=== PATIENT | female | born 1960 | race Caucasian/White ===

== ENCOUNTER → 2016-09-21 | Outpatient (CLI) | payer OTHER ==
[~2016-09-21] MED LIST: ALPR1TAB2 PO; ASPI-266 PO; CATHETER FLUSH 10 ML SYR IV PRN; CYCL10TA9 PO; HYDR-2890 PO; LISI20TA PO; OMEP20CA12 PO; REGADENOSON 0.4 MG/5 ML SYR (LEXISCAN) IV ONE; TRAM50TA2 PO; TRAZ-144 PO
[2016-09-21 10:19] VITALS: BP 156/81
--- NOTE | 2016-09-22 09:18 | STRESS TEST ---
PROCEDURE PHYSICIAN: RICO CISNEROS DATE OF PROCEDURE: 09/21/2016 LEXISCAN MYOVIEW STRESS TEST REPORT: INDICATION: Chest pain. BASELINE HEART RATE: 85 BASELINE BLOOD PRESSURE: 144/81 BASELINE EKG: Sinus rhythm with no ischemic changes. IN SUMMARY: The patient was injected with 10.97 mCi of technetium 99 Myoview then the resting images were obtained. She was scheduled initially for an exercise stress test. She was unable to exercise beyond 3 minutes and 18 seconds on standard Ez protocol due to shortness of breath. The test was terminated and converted to Lexiscan Myoview stress test. The patient received 0.4 mg of Lexiscan followed by 29.4 mCi of technetium 99 Myoview. Throughout the test, there were no EKG changes. The resting and stress images were reviewed and compared in the short axis, horizontal long axis, and vertical long axis views. Review of the images showed breast attenuation with typical female pattern. No significant ischemia or infarction on SPECT images. SSS is 4, SDS 4, TID value 0.96. On the gated images, the left ventricle appeared to be normal size with normal contractility. Calculated ejection fraction 65%. IN CONCLUSION: 1. The patient was unable to exercise beyond 3 minutes and 15 seconds on standard Ez protocol. The test was converted to Lexiscan Myoview stress test. She tolerated Lexiscan well. 2. No ischemia or infarction on SPECT images. 3. Normal left ventricular size with normal contractility. Calculated ejection fraction 65%. Job ID: [id number] Dictated Date: 09/21/2016 18:53:07 Shoe Repairer Date: 09/22/2016 09:15:22 / [place]anto
== END ==
LOC: CARD 08:26
PROVIDERS: ATTEND Internal Medicine Cardiovascular Disease
DX: R07.9 Chest pain, unspecified (principal); R06.02 Shortness of breath; I10 Essential (primary) hypertension; E78.5 Hyperlipidemia, unspecified; R06.00 Dyspnea, unspecified
CPT/HCPCS: 78452; 93017

== ENCOUNTER → 2016-11-03 | Outpatient (CLI) | payer OTHER ==
[~2016-11-03] MED LIST changes: -CATHETER FLUSH 10 ML SYR IV PRN; -REGADENOSON 0.4 MG/5 ML SYR (LEXISCAN) IV ONE
--- OUTSIDE RECORDS SUMMARY | 2016-11-03 10:30 | XMS REPORT | Continuity of Care Document ---
Author Author Formerly [facility] Address Unknown Phone Unavailable Allergies Active Description Code Type Severity Reaction Onset Reported/Identified Relationship to Patient Clinical Status Yes No Known Drug Allergies [id number] Drug Allergy Unknown N/ A 07/08/2014 Medications Problems Date Dx Coded Attending Type Code Diagnosis Diagnosed By 10/20/2011 DYLAN SAEED APRN S 307.42 SECONDARY INSOMNIA 10/20/2011 DYLAN SAEED APRN S 724.2 lower back pain 10/20/2011 DYLAN SAEED APRN S 780.60 fever [as symptom] 10/20/2011 AYESHA SAEED APRNA S 780.79 FATIGUE 10/20/2011 AYESHA SAEED APRNA S 783.1 recent weight gain (___ lbs) [reported ] 10/20/2011 AYESHA SAEED APRNA S 789.01 abdominal pain in the right upper belly (RUQ) 10/20/2011 DYLAN SAEED APRN S 796.2 Blood Pressure Isolated Elevated 10/20/2011 AYESHA SAEED APRNA S V19.8 family history [For FHx of Dx use Dx w / F prefix] 10/20/2011 DYLAN SAEED APRN S 307.42 SECONDARY INSOMNIA 10/20/2011 AYESHA SAEED APRNA S 724.2 lower back pain 10/20/2011 AYESHA SAEED APRNA S 780.60 fever [as symptom] 10/20/2011 AYESHA SAEED APRNA S 780.79 FATIGUE 10/20/2011 HECTOR SAEED APRNNDA S 783.1 recent weight gain (___ lbs) [reported ] 10/20/2011 AYESHA SAEED APRNA S 789.01 abdominal pain in the right upper belly (RUQ) 10/20/2011 HECTOR SAEED APRNNDA S 796.2 Blood Pressure Isolated Elevated 10/20/2011 HECTOR SAEED APRNNDA S V19.8 family history [For FHx of Dx use Dx w / F prefix] 10/20/2011 MATT PICHARDO MD 307.42 SECONDARY INSOMNIA 10/20/2011 MATT PICHARDO MD 724.2 lower back pain 10/20/2011 MATT PICHARDO MD 780.60 fever [as symptom] 10/20/2011 MATT PICHARDO MD 780.79 FATIGUE 10/20/2011 MATT PICHARDO MD 783.1 recent weight gain (___ lbs) [reported] 10/20/2011 MATT PICHARDO MD 789.01 abdominal pain in the right upper belly (RUQ ) 10/20/2011 MATT PICHARDO MD 796.2 Blood Pressure Isolated Elevated 10/20/2011 MATT PICHARDO MD V19.8 family history [For FHx of Dx use Dx w/ F prefix] 10/20/2011 DYLAN SAEED APRN S 307.42 SECONDARY INSOMNIA 10/20/2011 HECTOR SAEED APRNNDA S 724.2 lower back pain 10/20/2011 HECTOR SAEED APRNNDA S 780.60 fever [as symptom] 10/20/2011 HECTOR SAEED APRNNDA S 780.79 FATIGUE 10/20/2011 HECTOR SAEED APRNNDA S 783.1 recent weight gain (___ lbs) [reported ] 10/20/2011 HECTOR SAEED APRNNDA S 789.01 abdominal pain in the right upper belly (RUQ) 10/20/2011 HECTOR SAEED APRNNDA S 796.2 Blood Pressure Isolated Elevated 10/20/2011 HECTOR SAEED APRNNDA S V19.8 family history [For FHx of Dx use Dx w / F prefix] 10/20/2011 307.42 SECONDARY INSOMNIA 10/20/2011 724.2 lower back pain 10/20/2011 780.60 fever [as symptom] 10/20/2011 780.79 FATIGUE 10/20/2011 783.1 recent weight gain (___ lbs) [reported] 10/20/2011 789.01 abdominal pain in the right upper belly (RUQ) 10/20/2011 796.2 Blood Pressure Isolated Elevated 10/20/2011 V19.8 family history [For FHx of Dx use Dx w/ F prefix] 10/20/2011 307.42 SECONDARY INSOMNIA 10/20/2011 724.2 lower back pain 10/20/2011 780.60 fever [as symptom] 10/20/2011 780.79 FATIGUE 10/20/2011 783.1 recent weight gain (___ lbs) [reported] 10/20/2011 789.01 abdominal pain in the right upper belly (RUQ) 10/20/2011 796.2 Blood Pressure Isolated Elevated 10/20/2011 V19.8 family history [For FHx of Dx use Dx w/ F prefix] 10/20/2011 307.42 SECONDARY INSOMNIA 10/20/2011 724.2 lower back pain 10/20/2011 780.60 fever [as symptom] 10/20/2011 780.79 FATIGUE 10/20/2011 783.1 recent weight gain (___ lbs) [reported] 10/20/2011 789.01 abdominal pain in the right upper belly (RUQ) 10/20/2011 796.2 Blood Pressure Isolated Elevated 10/20/2011 V19.8 family history [For FHx of Dx use Dx w/ F prefix] 10/20/2011 DYLAN SAEED APRN S 307.42 SECONDARY INSOMNIA 10/20/2011 AYESHA SAEED APRNA S 724.2 lower back pain 10/20/2011 HECTOR SAEED APRNNDA S 780.60 fever [as symptom] 10/20/2011 HECTOR SAEED APRNNDA S 780.79 FATIGUE 10/20/2011 HECTOR SAEED APRNNDA S 783.1 recent weight gain (___ lbs) [reported ] 10/20/2011 HECTOR SAEED APRNNDA S 789.01 abdominal pain in the right upper belly (RUQ) 10/20/2011 HECTOR SAEED APRNNDA S 796.2 Blood Pressure Isolated Elevated 10/20/2011 HECTOR SAEED APRNNDA S V19.8 family history [For FHx of Dx use Dx w / F prefix] 10/20/2011 CHRISTOPHE NIGHT MANAGER, DYLAN S 307.42 SECONDARY INSOMNIA 10/20/2011 CHRISTOPHE RILEY, DYLAN S 724.2 lower back pain 10/20/2011 CHRISTOPHE RILEY, DYLAN S 780.60 fever [as symptom] 10/20/2011 CHRISTOPHE NIGHT MANAGER, DYLAN S 780.79 FATIGUE 10/20/2011 CHRISTOPHE RILEY DYLAN S 783.1 recent weight gain (___ lbs) [reported ] 10/20/2011 CHRISTOPHE RILEY, DYLAN S 789.01 abdominal pain in the right upper belly (RUQ) 10/20/2011 CHRISTOPHE RILEY DYLAN S 796.2 Blood Pressure Isolated Elevated 10/20/2011 CHRISTOPHE RILEY, DYLAN S V19.8 family history [For FHx of Dx use Dx w / F prefix] 10/20/2011 CHRISTOPHE RILEY DYLAN S 307.42 SECONDARY INSOMNIA 10/20/2011 CHRISTOPHE RILEY, DYLAN S 724.2 lower back pain 10/20/2011 CHRISTOPHE RILEY, DYLAN S 780.60 fever [as symptom] 10/20/2011 CHRISTOPHE RILEY DYLAN S 780.79 FATIGUE 10/20/2011 CHRISTOPHE RILEY, DYLAN S 783.1 recent weight gain (___ lbs) [reported ] 10/20/2011 CHRISTOPHE RILEY, DYLAN S 789.01 abdominal pain in the right upper belly (RUQ) 10/20/2011 CHRISTOPHE RILEY, DYLAN S 796.2 Blood Pressure Isolated Elevated 10/20/2011 CHRISTOPHE NIGHT MANAGER, DYLAN S V19.8 family history [For FHx of Dx use Dx w / F prefix] 10/20/2011 CHRISTOPHE RILEY, DYLAN S 307.42 SECONDARY INSOMNIA 10/20/2011 CHRISTOPHE NIGHT MANAGER, DYLAN S 724.2 lower back pain 10/20/2011 CHRISTOPHE NIGHT MANAGER, DYLAN S 780.60 fever [as symptom] 10/20/2011 CHRISTOPHE RILEY DYLAN S 780.79 FATIGUE 10/20/2011 AYESHA SAEED APRNA S 783.1 recent weight gain (___ lbs) [reported ] 10/20/2011 DYLAN SAEED APRN S 789.01 abdominal pain in the right upper belly (RUQ) 10/20/2011 AYESHA SAEED APRNA S 796.2 Blood Pressure Isolated Elevated 10/20/2011 AYESHA SAEED APRNA S V19.8 family history [For FHx of Dx use Dx w / F prefix] 10/20/2011 AYESHA SAEED APRNA S 307.42 SECONDARY INSOMNIA 10/20/2011 AYESHA SAEED APRNA S 724.2 LOWER BACK PAIN 10/20/2011 AYESHA SAEED APRNA S 780.60 FEVER [ SYMPTOM] 10/20/2011 AYESHA SAEED APRNA S 780.79 FATIGUE 10/20/2011 AYESHA SAEED APRNA S 783.1 RECENT WEIGHT GAIN (___ LBS) [REPORTED ] 10/20/2011 DYLAN SAEED APRN S 789.01 ABDOMINAL PAIN IN THE RIGHT UPPER BELLY (RUQ) 10/20/2011 AYESHA SAEED APRNA S 796.2 BLOOD PRESSURE ISOLATED ELEVATED 10/20/2011 AYESHA SAEED APRNA S V19.8 family history [For FHx of Dx use Dx w / F prefix] 10/20/2011 JOHANN AGUERO APRN A 307.42 SECONDARY INSOMNIA 10/20/2011 JOHANN AGUERO APRN A 724.2 LOWER BACK PAIN 10/20/2011 JOHANN AGUERO APRN A 780.60 FEVER [ SYMPTOM] 10/20/2011 ROBERTO AGUERO APRNIDI A 780.79 FATIGUE 10/20/2011 ROBERTO AGUERO APRNIDI A 783.1 RECENT WEIGHT GAIN (___ LBS) [REPORTED] 10/20/2011 JOHANN AGUERO APRN A 789.01 ABDOMINAL PAIN IN THE RIGHT UPPER BELLY ( RUQ) 10/20/2011 JOHANN AGUERO APRN A 796.2 BLOOD PRESSURE ISOLATED ELEVATED 10/20/2011 JOHANN AGUERO APRN A V19.8 family history [For FHx of Dx use Dx w/ F prefix] 10/20/2011 ROBERTO AGUERO APRNIDI A 307.42 SECONDARY INSOMNIA 10/20/2011 ROBERTO AGUERO APRNIDI A 724.2 LOWER BACK PAIN 10/20/2011 ROBERTO AGUERO APRNIDI A 780.60 FEVER [ SYMPTOM] 10/20/2011 ROBERTO AGUERO APRNIDI A 780.79 FATIGUE 10/20/2011 JOHANN AGUERO APRN A 783.1 RECENT WEIGHT GAIN (___ LBS) [REPORTED] 10/20/2011 JOHANN AGUERO APRN A 789.01 ABDOMINAL PAIN IN THE RIGHT UPPER BELLY ( RUQ) 10/20/2011 JOHANN AGUERO APRN A 796.2 BLOOD PRESSURE ISOLATED ELEVATED 10/20/2011 JOHANN AGUERO APRN A V19.8 family history [For FHx of Dx use Dx w/ F prefix] 10/20/2011 HECTOR SAEED APRNNDA S 307.42 SECONDARY INSOMNIA 10/20/2011 HECTOR SAEED APRNNDA S 724.2 LOWER BACK PAIN 10/20/2011 HECTOR SAEED APRNNDA S 780.60 FEVER [ SYMPTOM] 10/20/2011 HECTOR SAEED APRNNDA S 780.79 FATIGUE 10/20/2011 HECTOR SAEED APRNNDA S 783.1 RECENT WEIGHT GAIN (___ LBS) [REPORTED ] 10/20/2011 HECTOR SAEED APRNNDA S 789.01 ABDOMINAL PAIN IN THE RIGHT UPPER BELLY (RUQ) 10/20/2011 HECTOR SAEED APRNNDA S 796.2 BLOOD PRESSURE ISOLATED ELEVATED 10/20/2011 HECTOR SAEED APRNNDA S V19.8 family history [For FHx of Dx use Dx w / F prefix] 10/20/2011 CHRISTOPHE RILEY DYLAN S 307.42 SECONDARY INSOMNIA 10/20/2011 CHRISTOPHE RILEY DYALN S 724.2 LOWER BACK PAIN 10/20/2011 HECTOR SAEED APRNNDA S 780.60 FEVER [ SYMPTOM] 10/20/2011 HECTOR SAEED APRNNDA S 780.79 FATIGUE 10/20/2011 CHRISTOPHE RILEY, DYLAN S 783.1 RECENT WEIGHT GAIN (___ LBS) [REPORTED ] 10/20/2011 HECTOR SAEED APRNNDA S 789.01 ABDOMINAL PAIN IN THE RIGHT UPPER BELLY (RUQ) 10/20/2011 HECTOR SAEDE APRNNDA S 796.2 BLOOD PRESSURE ISOLATED ELEVATED 10/20/2011 HECTOR SAEED APRNNDA S V19.8 family history [For FHx of Dx use Dx w / F prefix] 10/27/2011 CHRISTOPHE RILEY DYLAN S 710.0 SYSTEMIC LUPUS ERYTHEMATOSUS 10/27/2011 CHRISTOPHE RILEY DYALN S 710.0 SYSTEMIC LUPUS ERYTHEMATOSUS 10/27/2011 MATT PICHARDO MD 710.0 SYSTEMIC LUPUS ERYTHEMATOSUS 10/27/2011 CHRISTOPHE RILEY, DYLAN S 710.0 SYSTEMIC LUPUS ERYTHEMATOSUS 10/27/2011 710.0 SYSTEMIC LUPUS ERYTHEMATOSUS 10/27/2011 710.0 SYSTEMIC LUPUS ERYTHEMATOSUS 10/27/2011 710.0 SYSTEMIC LUPUS ERYTHEMATOSUS 10/27/2011 CHRISTOPHE RILEY, DYLAN S 710.0 SYSTEMIC LUPUS ERYTHEMATOSUS 10/27/2011 CHRISTOPHE RILEY, DYLAN S 710.0 SYSTEMIC LUPUS ERYTHEMATOSUS 10/27/2011 CHRISTOPHE RILEY, DYLAN S 710.0 SYSTEMIC LUPUS ERYTHEMATOSUS 10/27/2011 CHRISTOPHE RILEY, DYLAN S 710.0 SYSTEMIC LUPUS ERYTHEMATOSUS 10/27/2011 CHRISTOPHE RILEY DYLAN S 710.0 SYSTEMIC LUPUS ERYTHEMATOSUS 10/27/2011 MORE NIGHT MANAGER, JOHANN A 710.0 SYSTEMIC LUPUS ERYTHEMATOSUS 10/27/2011 MORE NIGHT MANAGER, JOHANN A 710.0 SYSTEMIC LUPUS ERYTHEMATOSUS 10/27/2011 CHRISTOPHE NIGHT MANAGER, DYLAN S 710.0 SYSTEMIC LUPUS ERYTHEMATOSUS 10/27/2011 CHRISTOPHE RLIEY, DYLAN S 710.0 SYSTEMIC LUPUS ERYTHEMATOSUS 11/03/2011 CHRISTOPHE RILEY DYLAN S 401.1 BENIGN ESSENTIAL HYPERTENSION 11/03/2011 HECTOR SAEED APRNNDA S 401.1 BENIGN ESSENTIAL HYPERTENSION 11/03/2011 MATT PICHARDO MD 401.1 BENIGN ESSENTIAL HYPERTENSION 11/03/2011 CHRISTOPHE NIGHT MANAGER, DYLAN S 401.1 BENIGN ESSENTIAL HYPERTENSION 11/03/2011 401.1 BENIGN ESSENTIAL HYPERTENSION 11/03/2011 401.1 BENIGN ESSENTIAL HYPERTENSION 11/03/2011 401.1 BENIGN ESSENTIAL HYPERTENSION 11/03/2011 CHRISTOPHE NIGHT MANAGER, DLYAN S 401.1 BENIGN ESSENTIAL HYPERTENSION 11/03/2011 CHRISTOPHE NIGHT MANAGER, DYLAN S 401.1 BENIGN ESSENTIAL HYPERTENSION 11/03/2011 CHRISTOPHE NIGHT MANAGER, DYLAN S 401.1 BENIGN ESSENTIAL HYPERTENSION 11/03/2011 CHRISTOPHE NIGHT MANAGER, DYLAN S 401.1 BENIGN ESSENTIAL HYPERTENSION 11/03/2011 CHRISTOPHE NIGHT MANAGER, DYLAN S 401.1 BENIGN ESSENTIAL HYPERTENSION 11/03/2011 MORE NIGHT MANAGER, JOHANN A 401.1 BENIGN ESSENTIAL HYPERTENSION 11/03/2011 MORE NIGHT MANAGER, JOHANN A 401.1 BENIGN ESSENTIAL HYPERTENSION 11/03/2011 CHRISTOPHE NIGHT MANAGER, DYLAN S 401.1 BENIGN ESSENTIAL HYPERTENSION 11/03/2011 CHRISTOPHE NIGHT MANAGER, DYLAN S 401.1 BENIGN ESSENTIAL HYPERTENSION 03/27/2012 CHRISTOPHE RILEY, DYLAN S 535.00 ACUTE GASTRITIS (WITHOUT HEMORRHAGE) 03/27/2012 HECTOR SAEED APRNNDA S 695.4 LUPUS ERYTHEMATOSUS 03/27/2012 CHRISTOPHE RILEY DYLAN S 535.00 ACUTE GASTRITIS (WITHOUT HEMORRHAGE) 03/27/2012 HECTOR SAEED APRNNDA S 695.4 LUPUS ERYTHEMATOSUS 03/27/2012 MATT PICHARDO MD 535.00 ACUTE GASTRITIS (WITHOUT HEMORRHAGE) 03/27/2012 MATT PICHARDO MD 695.4 LUPUS ERYTHEMATOSUS 03/27/2012 CHRISTOPHE RILEY DYLAN S 535.00 ACUTE GASTRITIS (WITHOUT HEMORRHAGE) 03/27/2012 CHRISTOPHE RILEY, DYLAN S 695.4 LUPUS ERYTHEMATOSUS 03/27/2012 535.00 ACUTE GASTRITIS (WITHOUT HEMORRHAGE) 03/27/2012 695.4 LUPUS ERYTHEMATOSUS 03/27/2012 535.00 ACUTE GASTRITIS (WITHOUT HEMORRHAGE) 03/27/2012 695.4 LUPUS ERYTHEMATOSUS 03/27/2012 535.00 ACUTE GASTRITIS (WITHOUT HEMORRHAGE) 03/27/2012 695.4 LUPUS ERYTHEMATOSUS 03/27/2012 HECTOR SAEED APRNNDA S 535.00 ACUTE GASTRITIS (WITHOUT HEMORRHAGE) 03/27/2012 CHRISTOPHE NIGHT MANAGER, DYLAN S 695.4 LUPUS ERYTHEMATOSUS 03/27/2012 CHRISTOPHE NIGHT MANAGER, DYLAN S 535.00 ACUTE GASTRITIS (WITHOUT HEMORRHAGE) 03/27/2012 CHRISTOPHE NIGHT MANAGER, DYLAN S 695.4 LUPUS ERYTHEMATOSUS 03/27/2012 CHRISTOPHE NIGHT MANAGER, DYLAN S 535.00 ACUTE GASTRITIS (WITHOUT HEMORRHAGE) 03/27/2012 CHRISTOPHE NIGHT MANAGER, DYLAN S 695.4 LUPUS ERYTHEMATOSUS 03/27/2012 CHRISTOPHE NIGHT MANAGER, DYLAN S 535.00 ACUTE GASTRITIS (WITHOUT HEMORRHAGE) 03/27/2012 CHRISTOPHE NIGHT MANAGER, DYLAN S 695.4 LUPUS ERYTHEMATOSUS 03/27/2012 CHRISTOPHE NIGHT MANAGER, DYLAN S 535.00 ACUTE GASTRITIS (WITHOUT HEMORRHAGE) 03/27/2012 CHRISTOPHE NIGHT MANAGER, DYLAN S 695.4 LUPUS ERYTHEMATOSUS 03/27/2012 MORE NIGHT MANAGER, JOHANN A 535.00 ACUTE GASTRITIS (WITHOUT HEMORRHAGE) 03/27/2012 MORE NIGHT MANAGER, JOHANN A 695.4 LUPUS ERYTHEMATOSUS 03/27/2012 MORE NIGHT MANAGER, JOHANN A 535.00 ACUTE GASTRITIS (WITHOUT HEMORRHAGE) 03/27/2012 MORE NIGHT MANAGER, JOHANN A 695.4 LUPUS ERYTHEMATOSUS 03/27/2012 CHRISTOPHE NIGHT MANAGER, DYLAN S 535.00 ACUTE GASTRITIS (WITHOUT HEMORRHAGE) 03/27/2012 CHRISTOPHE NIGHT MANAGER, DYLAN S 695.4 LUPUS ERYTHEMATOSUS 03/27/2012 CHRISTOPHE NIGHT MANAGER, DYLAN S 535.00 ACUTE GASTRITIS (WITHOUT HEMORRHAGE) 03/27/2012 CHRISTOPHE NIGHT MANAGER, DYLAN S 695.4 LUPUS ERYTHEMATOSUS 06/20/2012 CHRISTOPHE NIGHT MANAGER, DYLAN S 338.29 CHRONIC PAIN 06/20/2012 CHRISTOPHE YENN, DYLAN S 786.09 DYSPNEA 06/20/2012 CHRISTOPHE NIGHT MANAGER DYLAN S V04.81 FLU DX (3 YRS AND ABOVE, IM) 06/20/2012 CHRISTOPHE NIGHT MANAGER, DYLAN S 338.29 CHRONIC PAIN 06/20/2012 CHRISTOPHE YENN DYLAN S 786.09 DYSPNEA 06/20/2012 CHRISTOPHE NIGHT MANAGER, DYLAN S V04.81 FLU DX (3 YRS AND ABOVE, IM) 06/20/2012 MATT PICHARDO MD 338.29 CHRONIC PAIN 06/20/2012 MATT PICHARDO MD 786.09 DYSPNEA 06/20/2012 MATT PICHARDO MD V04.81 FLU DX (3 YRS AND ABOVE, IM) 06/20/2012 CHRISTOPHE RILEY DYLAN S 338.29 CHRONIC PAIN 06/20/2012 HECTOR SAEED APRNNDA S 786.09 DYSPNEA 06/20/2012 HECTOR SAEED APRNNDA S V04.81 FLU DX (3 YRS AND ABOVE, IM) 06/20/2012 338.29 CHRONIC PAIN 06/20/2012 786.09 DYSPNEA 06/20/2012 V04.81 FLU DX (3 YRS AND ABOVE, IM) 06/20/2012 338.29 CHRONIC PAIN 06/20/2012 786.09 DYSPNEA 06/20/2012 V04.81 FLU DX (3 YRS AND ABOVE, IM) 06/20/2012 338.29 CHRONIC PAIN 06/20/2012 786.09 DYSPNEA 06/20/2012 V04.81 FLU DX (3 YRS AND ABOVE, IM) 06/20/2012 CHRISTOPHE RILEY DYLAN S 338.29 CHRONIC PAIN 06/20/2012 CHRISTOPHE RILEY DYLAN S 786.09 DYSPNEA 06/20/2012 HECTOR SAEED APRNNDA S V04.81 FLU DX (3 YRS AND ABOVE, IM) 06/20/2012 CHRISTOPHE RILEY DYLAN S 338.29 CHRONIC PAIN 06/20/2012 CHRISTOPHE RILEY DYLAN S 786.09 DYSPNEA 06/20/2012 CHRISTOPHE RILEY DYLAN S V04.81 FLU DX (3 YRS AND ABOVE, IM) 06/20/2012 CHRISTOPHE RILEY DYLAN S 338.29 CHRONIC PAIN 06/20/2012 CHRISTOPHE RILEY DYLAN S 786.09 DYSPNEA 06/20/2012 HECTOR SAEED APRNNDA S V04.81 FLU DX (3 YRS AND ABOVE, IM) 06/20/2012 CHRISTOPHE RILEY DYLAN S 338.29 CHRONIC PAIN 06/20/2012 CHRISTOPHE RILEY DYLAN S 786.09 DYSPNEA 06/20/2012 AYESHA SAEED APRNA S V04.81 FLU DX (3 YRS AND ABOVE, IM) 06/20/2012 HECTOR SAEED APRNNDA S 338.29 CHRONIC PAIN 06/20/2012 HECTOR SAEED APRNNDA S 786.09 DYSPNEA 06/20/2012 AYESHA SAEED APRNA S V04.81 FLU DX (3 YRS AND ABOVE, IM) 06/20/2012 ROBERTO AGUERO APRNIDI A 338.29 CHRONIC PAIN 06/20/2012 MORE RILEY, JOHANN A 786.09 DYSPNEA 06/20/2012 ROBERTO AGUERO APRNIDI A V04.81 FLU DX (3 YRS AND ABOVE, IM) 06/20/2012 MORE RILEY JOHANN A 338.29 CHRONIC PAIN 06/20/2012 MORE RILEY, JOHANN A 786.09 DYSPNEA 06/20/2012 ROBERTO AGUERO APRNIDI A V04.81 FLU DX (3 YRS AND ABOVE, IM) 06/20/2012 HECTOR SAEED APRNNDA S 338.29 CHRONIC PAIN 06/20/2012 HECTOR SAEED APRNNDA S 786.09 DYSPNEA 06/20/2012 AYESHA SAEED APRNA S V04.81 FLU DX (3 YRS AND ABOVE, IM) 06/20/2012 HECTOR SAEED APRNNDA S 338.29 CHRONIC PAIN 06/20/2012 HECTOR SAEED APRNNDA S 786.09 DYSPNEA 06/20/2012 AYESHA SAEED APRNA S V04.81 FLU DX (3 YRS AND ABOVE, IM) 10/17/2012 MATT PICHARDO MD 782.1 skin: a rash [as Sx] 10/17/2012 CHRISTOPHE RILEY DYLAN S 782.1 skin: a rash [as Sx] 10/17/2012 782.1 skin: a rash [as Sx] 10/17/2012 782.1 skin: a rash [as Sx] 10/17/2012 782.1 skin: a rash [as Sx] 10/17/2012 DYLAN SAEED APRN S 782.1 skin: a rash [as Sx] 10/17/2012 AYESHA SAEED APRNA S 782.1 skin: a rash [as Sx] 10/17/2012 HECTOR SAEED APRNNDA S 782.1 skin: a rash [as Sx] 10/17/2012 CHRISTOPHE RILEY DYLAN S 782.1 skin: a rash [as Sx] 10/17/2012 HECTOR SAEED APRNNDA S 782.1 skin: a rash [as Sx] 10/17/2012 MORE RILEY JOHANN A 782.1 skin: a rash [as Sx ] 10/17/2012 MORE APRN, JOHANN A 782.1 skin: a rash [as Sx ] 10/17/2012 AYESHA SAEED APRNA S 782.1 skin: a rash [as Sx] 10/17/2012 AYESHA SAEED APRNA S 782.1 SKIN: A RASH [ SX] 02/13/2013 790.99 abnormal lab 02/13/2013 790.99 abnormal lab 02/13/2013 CHRISTOPHE RILEY, DYLAN S 790.99 abnormal lab 02/13/2013 CHRISTOPHE RILEY, DYLAN S 790.99 abnormal lab 02/13/2013 CHRISTOPHE RILEY, DYLAN S 790.99 abnormal lab 02/13/2013 CHRISTOPHE RILEY, DYLAN S 790.99 abnormal lab 02/13/2013 CHRISTOPHE RILEY, DYLAN S 790.99 abnormal lab 02/13/2013 MORE NIGHT MANAGER, JOHANN A 790.99 abnormal lab 02/13/2013 MORE NIGHT MANAGER, OJHANN A 790.99 abnormal lab 02/13/2013 CHRISTOPHE NIGHT MANAGER, DYLAN S 790.99 abnormal lab 02/13/2013 CHRISTOPHE RILEY, DYLAN S 790.99 ABNORMAL LAB 07/11/2013 CHRISTOPHE RILEY DYLAN S 788.1 DYSURIA 07/11/2013 AYESHA SAEED APRNA S V58.69 HIGH RISK MEDICATION 07/11/2013 HECTOR SAEED APRNNDA S 788.1 DYSURIA 07/11/2013 CHRISTOPHE NIGHT MANAGER, DYLAN S V58.69 HIGH RISK MEDICATION 07/11/2013 CHRISTOPHE NIGHT MANAGER, DYLAN S 788.1 DYSURIA 07/11/2013 CHRISTOPHE NIGHT MANAGER, DYLAN S V58.69 HIGH RISK MEDICATION 07/11/2013 MORE NIGHT MANAGER, JOHANN A 788.1 DYSURIA 07/11/2013 MORE NIGHT MANAGER, JOHANN A V58.69 HIGH RISK MEDICATION 07/11/2013 MORE NIGHT MANAGER, JOHANN A 788.1 DYSURIA 07/11/2013 MORE NIGHT MANAGER, JOHANN A V58.69 HIGH RISK MEDICATION 07/11/2013 CHRISTOPHE NIGHT MANAGER, DYLAN S 788.1 DYSURIA 07/11/2013 CHRISTOPHE NIGHT MANAGER, DYLAN S V58.69 HIGH RISK MEDICATION 07/11/2013 CHRISTOPHE NIGHT MANAGER, DYLAN S 788.1 DYSURIA 07/11/2013 CHRISTOPHE YENN, DYLAN S V58.69 HIGH RISK MEDICATION 07/18/2013 CHRISTOPHE YENN, DYLAN S 380.10 OTITIS EXTERNA RIGHT 07/18/2013 CHRISTOPHE YENN, DYLAN S 380.10 OTITIS EXTERNA RIGHT 07/18/2013 CHRISTOPHE YENN, DYLAN S 380.10 OTITIS EXTERNA RIGHT 07/18/2013 MORE NIGHT MANAGER, JOHANN A 380.10 OTITIS EXTERNA RIGHT 07/18/2013 MORE NIGHT MANAGER, JOHANN A 380.10 OTITIS EXTERNA RIGHT 07/18/2013 CHRISTOPHE RILEY, DYLAN S 380.10 OTITIS EXTERNA RIGHT 07/18/2013 CHRISTOPHE YENN DYLAN S 380.10 OTITIS EXTERNA RIGHT 10/29/2013 CHRISTOPHE YENN, DYLAN S V15.82 Nicotine abuse 10/29/2013 CHRISTOPHE YENN DYLAN S V15.82 Nicotine abuse 10/29/2013 MORE NIGHT MANAGER, JOHANN A V15.82 Nicotine abuse 10/29/2013 MORE NIGHT MANAGER, JOHANN A V15.82 Nicotine abuse 10/29/2013 CHRISTOPHE YENN DYLAN S V15.82 Nicotine abuse 10/29/2013 CHRISTOPHE YENN DYLAN S V15.82 Nicotine abuse 03/19/2014 CHRISTOPHE RILEY DYLAN S 599.0 URINARY TRACT INFECTION 03/19/2014 MORE RILEY JOHANN A 599.0 URINARY TRACT INFECTION 03/19/2014 MORE RILEY JOHANN A 599.0 URINARY TRACT INFECTION 03/19/2014 HECTOR SAEED APRNNDA S 599.0 URINARY TRACT INFECTION 03/19/2014 CHRISTOPHE RILEY DYLAN S 599.0 URINARY TRACT INFECTION 04/15/2014 MORE RILEY JOHANN A V65.42 COUNSELING - SMOKING CESSATION 04/15/2014 MORE RILEY JOHANN A V72.31 COSMETIC CONSULTANT EXAM, ROUTINE 04/15/2014 MORE RILEY JOHANN A V73.81 HPV SCREENING 04/15/2014 MORE RILEY JOHANN A V76.10 BREAST CANCER SCREENING 04/15/2014 MORE RILEY JOHANN A V76.2 CERVICAL CANCER SCREENING (PAP SMEAR) 04/15/2014 MORE RILEY JOHANN A V76.51 COLON CANCER SCREENING 04/15/2014 MORE RILEY JOHANN A V65.42 COUNSELING - SMOKING CESSATION 04/15/2014 MORE RILEY JOHANN A V72.31 COSMETIC CONSULTANT EXAM, ROUTINE 04/15/2014 MORE RILEY JOHANN A V73.81 HPV SCREENING 04/15/2014 MORE YENMarielle JOHANN A V76.10 BREAST CANCER SCREENING 04/15/2014 MORE YENMarielle JOHANN A V76.2 CERVICAL CANCER SCREENING (PAP SMEAR) 04/15/2014 MORE YENMarielle JOHANN A V76.51 COLON CANCER SCREENING 04/15/2014 HECTOR SAEED APRNNDA S V65.42 COUNSELING - SMOKING CESSATION 04/15/2014 HECTOR SAEED APRNNDA S V72.31 COSMETIC CONSULTANT EXAM, ROUTINE 04/15/2014 HECTOR SAEED APRNNDA S V73.81 HPV SCREENING 04/15/2014 HECTOR SAEED APRNNDA S V76.10 BREAST CANCER SCREENING 04/15/2014 HECTOR SAEED APRNNDA S V76.2 CERVICAL CANCER SCREENING (PAP SMEAR) 04/15/2014 HECTOR SAEED APRNNDA S V76.51 COLON CANCER SCREENING 04/15/2014 DYLAN SAEED APRN V65.42 COUNSELING - SMOKING CESSATION 04/15/2014 DYLAN SAEED APRN V72.31 COSMETIC CONSULTANT EXAM, ROUTINE 04/15/2014 DYLAN SAEED APRN V73.81 HPV SCREENING 04/15/2014 DYLAN SAEED APRN V76.10 BREAST CANCER SCREENING 04/15/2014 DYLAN SAEED APRN V76.2 CERVICAL CANCER SCREENING (PAP SMEAR) 04/15/2014 DYLAN SAEED APRN V76.51 COLON CANCER SCREENING 06/16/2014 DYLAN SAEED APRN 719.45 PAIN- HIP 06/16/2014 DYLAN SAEED APRN 719.45 PAIN- HIP 07/08/2014 RICARDO NAM DO Ot 211.4 BENIGN NEOPL RECTUM/ANUS 07/08/2014 RICARDO NAM DO Ot 401.9 HYPERTENSION NOS 07/08/2014 RICARDO NAM DO Ot 562.10 DIVERTICULOSIS COLON (W/O MENT OF HEMORR 08/25/2014 Ot 789.01 08/25/2014 Ot 593.2 08/25/2014 Ot 616.0 08/25/2014 Ot 620.2 08/25/2014 RICARDO NAM DO Ot V72.84 11/03/2014 DYLAN SAEED APRN S 338.29 PAIN - CHRONIC 11/03/2014 DYLAN SAEED APRN 525.9 UNSPECIFIED DISORDER OF THE TEETH AND SUPPORTING STRUCTURES 09/02/2015 Ot 789.01 09/02/2015 Ot 593.2 09/02/2015 Ot 616.0 09/02/2015 Ot 620.2 09/02/2015 RICARDO NAM DO Ot V72.84 09/25/2015 DYLAN SAEED Ot M54.30 SCIATICA, UNSPECIFIED SIDE 06/07/2016 Ot 789.01 ABDOMINAL PAIN, RIGHT UPPER QUADRANT 06/07/2016 Ot 593.2 CYST OF KIDNEY, ACQUIRED 06/07/2016 Ot 616.0 CERVICITIS 06/07/2016 Ot 620.2 OVARIAN CYST NEC/NOS 06/07/2016 RICARDO NAM DO Ot V72.84 EXAM PRE-OPERATIVE NOS 07/26/2016 Ot 789.01 ABDOMINAL PAIN, RIGHT UPPER QUADRANT 07/26/2016 Ot 593.2 CYST OF KIDNEY, ACQUIRED 07/26/2016 Ot 616.0 CERVICITIS 07/26/2016 Ot 620.2 OVARIAN CYST NEC/NOS 07/26/2016 RICARDO NAM DO Ot V72.84 EXAM PRE-OPERATIVE NOS 07/28/2016 RICO CISNEROS MD Ot E78.5 HYPERLIPIDEMIA, UNSPECIFIED 07/28/2016 RICO CISNEROS MD Ot I10 ESSENTIAL (PRIMARY) HYPERTENSION 07/28/2016 RICO CISNEROS MD Ot R06.02 SHORTNESS OF BREATH 07/28/2016 RICO CISNEROS MD Ot R07.9 CHEST PAIN, UNSPECIFIED 2016 Ot 789.01 ABDOMINAL PAIN, RIGHT UPPER QUADRANT 2016 Ot 593.2 CYST OF KIDNEY, ACQUIRED 2016 Ot 616.0 CERVICITIS 2016 Ot 620.2 OVARIAN CYST NEC/NOS 2016 RICARDO NAM DO Ot V72.84 EXAM PRE-OPERATIVE NOS 2016 RICO CISNEROS MD Ot E78.5 HYPERLIPIDEMIA, UNSPECIFIED 2016 RICO CISNEROS MD Ot I10 ESSENTIAL (PRIMARY) HYPERTENSION 2016 RICO CISNEROS MD Ot R06.02 SHORTNESS OF BREATH 2016 RICO CISNEROS MD Ot R07.9 CHEST PAIN, UNSPECIFIED 2016 RICO CISNEROS MD Ot E78.5 HYPERLIPIDEMIA, UNSPECIFIED 2016 RICO CISNEROS MD Ot I10 ESSENTIAL (PRIMARY) HYPERTENSION 2016 RICO CISNEROS MD Ot R06.02 SHORTNESS OF BREATH 2016 RICO CISNEROS MD Ot R07.9 CHEST PAIN, UNSPECIFIED 08/16/2016 Ot 789.01 ABDOMINAL PAIN, RIGHT UPPER QUADRANT 08/16/2016 Ot 593.2 CYST OF KIDNEY, ACQUIRED 08/16/2016 Ot 616.0 CERVICITIS 08/16/2016 Ot 620.2 OVARIAN CYST NEC/NOS 08/16/2016 RICARDO NAM DO Ot V72.84 EXAM PRE-OPERATIVE NOS 08/16/2016 RICO CISNEROS MD Ot E78.5 HYPERLIPIDEMIA, UNSPECIFIED 08/16/2016 RICO CISNREOS MD Ot I10 ESSENTIAL (PRIMARY) HYPERTENSION 08/16/2016 RICO CISNEROS MD Ot R06.02 SHORTNESS OF BREATH 08/16/2016 RICO CISNEROS MD Ot R07.9 CHEST PAIN, UNSPECIFIED 08/16/2016 Ot 789.01 ABDOMINAL PAIN, RIGHT UPPER QUADRANT 08/16/2016 Ot 593.2 CYST OF KIDNEY, ACQUIRED 08/16/2016 Ot 616.0 CERVICITIS 08/16/2016 Ot 620.2 OVARIAN CYST NEC/NOS 08/16/2016 RICARDO NAM DO Ot V72.84 EXAM PRE-OPERATIVE NOS 08/16/2016 RICO CISNEROS MD Ot E78.5 HYPERLIPIDEMIA, UNSPECIFIED 08/16/2016 RICO CISNEROS MD Ot I10 ESSENTIAL (PRIMARY) HYPERTENSION 08/16/2016 RICO CISNEROS MD Ot R06.02 SHORTNESS OF BREATH 08/16/2016 RICO CISNEROS MD Ot R07.9 CHEST PAIN, UNSPECIFIED 09/19/2016 Ot 789.01 ABDOMINAL PAIN, RIGHT UPPER QUADRANT 09/19/2016 Ot 593.2 CYST OF KIDNEY, ACQUIRED 09/19/2016 Ot 616.0 CERVICITIS 09/19/2016 Ot 620.2 OVARIAN CYST NEC/NOS 09/19/2016 RICARDO NAM DO Ot V72.84 EXAM PRE-OPERATIVE NOS 09/19/2016 RICO CISNEROS MD Ot E78.5 HYPERLIPIDEMIA, UNSPECIFIED 09/19/2016 RICO CISNEROS MD Ot I10 ESSENTIAL (PRIMARY) HYPERTENSION 09/19/2016 RICO CISNEROS MD Ot R06.02 SHORTNESS OF BREATH 09/19/2016 RICO CISNEROS MD Ot R07.9 CHEST PAIN, UNSPECIFIED 09/20/2016 Ot 789.01 ABDOMINAL PAIN, RIGHT UPPER QUADRANT 09/20/2016 Ot 593.2 CYST OF KIDNEY, ACQUIRED 09/20/2016 Ot 616.0 CERVICITIS 09/20/2016 Ot 620.2 OVARIAN CYST NEC/NOS 09/20/2016 RICARDO NAM DO Ot V72.84 EXAM PRE-OPERATIVE NOS 09/20/2016 BLAYNE RAMESH, RICO Ellis Ot E78.5 HYPERLIPIDEMIA, UNSPECIFIED 09/20/2016 RICO CISNEROS MD Ot I10 ESSENTIAL (PRIMARY) HYPERTENSION 09/20/2016 RICO CISNEROS MD Ot R06.02 SHORTNESS OF BREATH 09/20/2016 RICO CISNEROS MD Ot R07.9 CHEST PAIN, UNSPECIFIED 09/21/2016 RICO CISNEROS MD Ot E78.5 HYPERLIPIDEMIA, UNSPECIFIED 09/21/2016 RICO CISNEROS MD Ot I10 ESSENTIAL (PRIMARY) HYPERTENSION 09/21/2016 RICO CISNEROS MD Ot R06.00 DYSPNEA, UNSPECIFIED 09/21/2016 RICO CISNEROS MD Ot R06.02 SHORTNESS OF BREATH 09/21/2016 RICO CISNEROS MD Ot R07.9 CHEST PAIN, UNSPECIFIED 09/23/2016 RICO CISNEROS MD Ot E78.5 HYPERLIPIDEMIA, UNSPECIFIED 09/23/2016 RICO CISNEROS MD Ot I10 ESSENTIAL (PRIMARY) HYPERTENSION 09/23/2016 RICO CISNEROS MD Ot R06.00 DYSPNEA, UNSPECIFIED 09/23/2016 RICO CISNEROS MD Ot R06.02 SHORTNESS OF BREATH 09/23/2016 RICO CISNEROS MD Ot R07.9 CHEST PAIN, UNSPECIFIED 09/27/2016 RICO CISNEROS MD Ot E78.5 HYPERLIPIDEMIA, UNSPECIFIED 09/27/2016 RICO CISNEROS MD J Ot I10 ESSENTIAL (PRIMARY) HYPERTENSION 09/27/2016 RICO CISNEROS MD Ot R06.00 DYSPNEA, UNSPECIFIED 09/27/2016 RICO CISNEROS MD J Ot R06.02 SHORTNESS OF BREATH 09/27/2016 RICO CISNEROS MD Ot R07.9 CHEST PAIN, UNSPECIFIED 10/10/2016 RICO CISNEROS MD Ot E78.5 HYPERLIPIDEMIA, UNSPECIFIED 10/10/2016 RICO CISNEROS MD J Ot I10 ESSENTIAL (PRIMARY) HYPERTENSION 10/10/2016 RICO CISNEROS MD J Ot R06.00 DYSPNEA, UNSPECIFIED 10/10/2016 RICO CISNEROS MD Ot R06.02 SHORTNESS OF BREATH 10/10/2016 RICO CISNEROS MD Ot R07.9 CHEST PAIN, UNSPECIFIED Procedures Code Description [place] [address] URINE DRUG SCREEN (IN-HOUSE) 07/24/2012 15949 ROUTINE VENIPUNCTURE 10/17/2012 87828 UA W/MICROSCOPY 10/17/2012 73296 HEPATITIS PROFILE 10/17/2012 [id number] COMPLETE BLOOD COUNT NO DIFF (CBC Result) 10/17/2012 19898 DIFFERENTIAL WBC COUNT (CBC DIFF RESULT) 10/17/2012 80119 HIV ANTIBODIES (RML) 10/17/2012 55913 CULTURE NASAL 31418 SM ANTIBODY (ANTI ARCHER) 10/19/2012 35317 CBC W/MANUAL DIF (order) 10/22/2012 68468 CARDIOLIPIN ANTIBODY 10/22/2012 LUPUS LUPUS ANTICOAGULANT ANALYZER 10/22/2012 70195 BIOPSY SKIN LESION (SINGLE) 10/26/2012 68184 ROUTINE VENIPUNCTURE 12/13/2012 62295 CBC 12/14/2012 53591 ROUTINE VENIPUNCTURE 02/01/2013 1160432 IMMATURE PLATELET FRACTION (RESULT ONLY) 02/04/2013 43824 CBC 02/04/2013 95499 DIFFERENTIAL WBC COUNT (CBC DIFF RESULT) 02/04/2013 69219 PERIPHERIAL BLOOD SMEAR 02/04/2013 40419 RETICULOCYTE COUNT 02/04/2013 4278125 HEMATOLOGY OTHER REPORT 02/04/2013 61175 ROUTINE VENIPUNCTURE 03/11/2013 34931 ASSAY OF ERYTHROPOIETIN 03/11/2013 14966 ROUTINE VENIPUNCTURE 05/09/2013 54675 CBC 05/09/2013 53638 CMP 05/09/2013 [id number] GFR CALC (RESULT ONLY) 05/09/2013 56167 URINE DRUG SCREEN (IN-HOUSE) 07/11/2013 25106 UA W/ CULTURE IF INDICATED 07/11/2013 12690 CULTURE URINE G0008 FLU ADMINISTRATION (MEDICARE ONLY) 07/18/2013 52301 ROUTINE VENIPUNCTURE 10/29/2013 24539 URINE DRUG SCREEN (IN-HOUSE) 10/29/2013 9209266 GFR CALC (RESULT ONLY) 10/29/2013 53584 CMP 10/29/2013 59313 CBC 10/29/2013 51459 UA W/ CULTURE IF INDICATED 03/19/2014 36598 CULTURE URINE 87969 [employer] 2013 Q0091 PAP SMEAR OBTAIN SMEAR 04/15/2014 08142 MAMMOGRAM, SCREENING 04/17/2014 08592 PAP SMEAR 2013 General S Ricardo Nam 05/02/2014 60495 HEMOCCULT 2013 80523 HEMOCCULT 2013 54781 ROUTINE VENIPUNCTURE 06/16/2014 85811 CBC 06/16/2014 0722326 GFR CALC (RESULT ONLY) 06/16/2014 80617 CMP 06/16/2014 14294 LIPID PANEL 06/16 22365 [employer] 2014 Results Encounters ACCT No. Visit Date/Time Discharge Status Pt. Type Provider Facility Loc./Unit Complaint [id number] 11/03/2014 15:57:00 11/03/2014 23: 59:59 CLS Outpatient DYLAN SAEED APRN [id number] 06/14/2014 00:00:00 06/14/2014 23: 59:59 CLS Outpatient DYLAN SAEED APRN [id number] 05/02/2014 16:11:00 05/02/2014 23: 59:59 CLS Outpatient JOHANN AGUERO APRN [id number] 04/15/2014 10:28:00 04/15/2014 23: 59:59 CLS Outpatient JOHANN AGUERO APRN [id number] 03/19/2014 11:43:00 03/19/2014 23: 59:59 CLS Outpatient DYLAN SAEED APRN [id number] 10/29/2013 11:15:00 10/29/2013 23: 59:59 CLS Outpatient DYLAN SAEED APRN [id number] 07/18/2013 10:57:00 07/18/2013 23: 59:59 CLS Outpatient DYLAN SAEED APRN [id number] 07/11/2013 12:31:00 07/11/2013 23: 59:59 CLS Outpatient DYLAN SAEED APRN [id number] 05/09/2013 12:00:00 05/09/2013 23: 59:59 CLS Outpatient DYLAN SAEED APRN [id number] 10/25/2012 18:07:00 10/25/2012 23: 59:59 CLS Outpatient DYLAN SAEED APRN [id number] 10/17/2012 11:30:00 10/17/2012 23: 59:59 CLS Outpatient MATT PICHARDO MD [id number] 07/24/2012 12:39:00 07/24/2012 23: 59:59 CLS Outpatient DYLAN SAEED APRN [id number] 06/20/2012 12:54:00 06/20/2012 23: 59:59 CLS Outpatient DYLAN SAEED APRN [id number] 03/11/2013 11:37:00 Document Registration [id number] 02/01/2013 10:37:00 Document Registration [id number] 12/13/2012 17:29:00 Document Registration
[2016-11-03 11:56] LABS: ABG BASE EXCESS 1.7 MMOL/L (-2.5-2.5); ABG HCO3 26 MMOL/L (23-27); ABG OXYGEN SATURATION 92 % (94-100); ABG PCO2 45 MMHG (35-45); ABG PH 7.39 (7.37-7.43); ABG PO2 56 MMHG (79-93); ABG TCO2 27.7 MMOL/L (21.0-31.0)
[2016-11-03 11:59] LABS: ALLENS TEST POSITIVE; PATIENT TEMP 97.7
--- NOTE | 2016-11-03 20:33 | Diagnostic Imaging Report ---
EXAMINATION: PA and lateral chest at 11:34 a.m. INDICATION: Lupus, anxiety. COMPARISON: There are no prior studies available for comparison. FINDINGS: The heart size is within normal limits. There is a small linear area of increased density in the left lung base. This finding could be secondary to mild scar formation/chronic atelectasis. The possibility that this density is related to mild acute pneumonia/atelectasis should also be considered. The lungs are otherwise clear. There is no sign of a pleural effusion. The mediastinum is not widened. The osseous structures are intact. IMPRESSION: 1. There is a small linear area of increased density in the left lung base. Whether this is chronic in nature or whether this is secondary to a small focus of acute pneumonia/atelectasis is not certain. Clinical follow-up is recommended. 2. If previous exams are available, they would be helpful for comparison. Dictated by: Dictated on workstation # [id number]
== END ==
LOC: RAD 10:25
PROVIDERS: ATTEND Internal Medicine Critical Care Medicine
DX: J44.9 Chronic obstructive pulmonary disease, unspecified (principal); M32.9 Systemic lupus erythematosus, unspecified; F41.9 Anxiety disorder, unspecified
CPT/HCPCS: 71020; 82805

== ENCOUNTER → 2016-11-09 | Outpatient (CLI) | payer OTHER ==
[~2016-11-09] MED LIST changes: +RT-ALBUTEROL SULF 2.5 MG/3 ML PRE-MIX VIAL INH ONE
--- OUTSIDE RECORDS SUMMARY | 2016-11-09 15:28 | XMS REPORT | Continuity of Care Document ---
Author Author On License Of [facility] Address Unknown Phone Unavailable Allergies Active Description Code Type Severity Reaction Onset Reported/Identified Relationship to Patient Clinical Status Yes No Known Drug Allergies [id number] Drug Allergy Unknown N/ A 07/08/2014 Medications [...] PICHARDO MD 724.2 lower back pain 10/20/2011 MTAT PICHARDO MD 780.60 fever [as symptom] 10/20/2011 [...] Dx w / F prefix] 10/20/2011 CHRISTOPHE LUMBER STACKER OPERATOR, DYLAN S 307.42 SECONDARY INSOMNIA 10/20/2011 CHRISTOPHE RILEY, DYLAN S 724.2 lower back pain 10/20/2011 CHRISTOPHE RILEY, DYLAN S 780.60 fever [as symptom] 10/20/2011 CHRISTOPHE LUMBER STACKER OPERATOR, DYLAN S 780.79 FATIGUE 10/20/2011 CHRISTOPHE RILEY [...] 796.2 Blood Pressure Isolated Elevated 10/20/2011 CHRISTOPHE LUMBER STACKER OPERATOR, DYLAN S V19.8 family history [For FHx of Dx use Dx w / F prefix] 10/20/2011 CHRISTOPHE RILEY, DYLAN S 307.42 SECONDARY INSOMNIA 10/20/2011 CHRISTOPHE LUMBER STACKER OPERATOR, DYLAN S 724.2 lower back pain 10/20/2011 CHRISTOPHE LUMBER STACKER OPERATOR, DYLAN S 780.60 fever [as symptom] 10/20/2011 [...] S 307.42 SECONDARY INSOMNIA 10/20/2011 CHRISTOPHE RILEY DYLAN S 724.2 LOWER BACK PAIN 10/20/2011 HECTOR [...] DYLAN S 710.0 SYSTEMIC LUPUS ERYTHEMATOSUS 10/27/2011 MATT [...] S 710.0 SYSTEMIC LUPUS ERYTHEMATOSUS 10/27/2011 MORE LUMBER STACKER OPERATOR, JOHANN A 710.0 SYSTEMIC LUPUS ERYTHEMATOSUS 10/27/2011 MORE LUMBER STACKER OPERATOR, JOHANN A 710.0 SYSTEMIC LUPUS ERYTHEMATOSUS 10/27/2011 CHRISTOPHE LUMBER STACKER OPERATOR, DYLAN S 710.0 SYSTEMIC LUPUS ERYTHEMATOSUS 10/27/2011 CHRISTOPHE RILEY, DYLAN S 710.0 SYSTEMIC LUPUS ERYTHEMATOSUS 11/03/2011 CHRISTOPHE RILEY DYLAN S 401.1 BENIGN ESSENTIAL HYPERTENSION 11/03/2011 HECTOR SAEED APRNNDA S 401.1 BENIGN ESSENTIAL HYPERTENSION 11/03/2011 MATT PICHARDO MD 401.1 BENIGN ESSENTIAL HYPERTENSION 11/03/2011 CHRISTOPHE LUMBER STACKER OPERATOR, DYLAN S 401.1 BENIGN ESSENTIAL HYPERTENSION 11/03/2011 401.1 BENIGN ESSENTIAL HYPERTENSION 11/03/2011 401.1 BENIGN ESSENTIAL HYPERTENSION 11/03/2011 401.1 BENIGN ESSENTIAL HYPERTENSION 11/03/2011 CHRISTOPHE LUMBER STACKER OPERATOR, DYLAN S 401.1 BENIGN ESSENTIAL HYPERTENSION 11/03/2011 CHRISTOPHE LUMBER STACKER OPERATOR, DYLAN S 401.1 BENIGN ESSENTIAL HYPERTENSION 11/03/2011 CHRISTOPHE LUMBER STACKER OPERATOR, DYLAN S 401.1 BENIGN ESSENTIAL HYPERTENSION 11/03/2011 CHRISTOPHE LUMBER STACKER OPERATOR, DYLAN S 401.1 BENIGN ESSENTIAL HYPERTENSION 11/03/2011 CHRISTOPHE LUMBER STACKER OPERATOR, DYLAN S 401.1 BENIGN ESSENTIAL HYPERTENSION 11/03/2011 MORE LUMBER STACKER OPERATOR, JOHANN A 401.1 BENIGN ESSENTIAL HYPERTENSION 11/03/2011 MORE LUMBER STACKER OPERATOR, JOHANN A 401.1 BENIGN ESSENTIAL HYPERTENSION 11/03/2011 CHRISTOPHE LUMBER STACKER OPERATOR, DYLAN S 401.1 BENIGN ESSENTIAL HYPERTENSION 11/03/2011 CHRISTOPHE LUMBER STACKER OPERATOR, DYLAN S 401.1 BENIGN ESSENTIAL HYPERTENSION 03/27/2012 CHRISTOPHE RILEY, YDLAN S 535.00 ACUTE GASTRITIS (WITHOUT HEMORRHAGE) 03/27/2012 [...] 535.00 ACUTE GASTRITIS (WITHOUT HEMORRHAGE) 03/27/2012 CHRISTOPHE LUMBER STACKER OPERATOR, DYLAN S 695.4 LUPUS ERYTHEMATOSUS 03/27/2012 CHRISTOPHE LUMBER STACKER OPERATOR, DYLAN S 535.00 ACUTE GASTRITIS (WITHOUT HEMORRHAGE) 03/27/2012 CHRISTOPHE LUMBER STACKER OPERATOR, DYLAN S 695.4 LUPUS ERYTHEMATOSUS 03/27/2012 CHRISTOPHE LUMBER STACKER OPERATOR, DYLAN S 535.00 ACUTE GASTRITIS (WITHOUT HEMORRHAGE) 03/27/2012 CHRISTOPHE LUMBER STACKER OPERATOR, DYLAN S 695.4 LUPUS ERYTHEMATOSUS 03/27/2012 CHRISTOPHE LUMBER STACKER OPERATOR, DYLAN S 535.00 ACUTE GASTRITIS (WITHOUT HEMORRHAGE) 03/27/2012 CHRISTOPHE LUMBER STACKER OPERATOR, DYLAN S 695.4 LUPUS ERYTHEMATOSUS 03/27/2012 CHRISTOPHE LUMBER STACKER OPERATOR, DYLAN S 535.00 ACUTE GASTRITIS (WITHOUT HEMORRHAGE) 03/27/2012 CHRISTOPHE LUMBER STACKER OPERATOR, DYLAN S 695.4 LUPUS ERYTHEMATOSUS 03/27/2012 MORE LUMBER STACKER OPERATOR, JOHNAN A 535.00 ACUTE GASTRITIS (WITHOUT HEMORRHAGE) 03/27/2012 MORE LUMBER STACKER OPERATOR, JOHANN A 695.4 LUPUS ERYTHEMATOSUS 03/27/2012 MORE LUMBER STACKER OPERATOR, JOHANN A 535.00 ACUTE GASTRITIS (WITHOUT HEMORRHAGE) 03/27/2012 MORE LUMBER STACKER OPERATOR, JOHANN A 695.4 LUPUS ERYTHEMATOSUS 03/27/2012 CHRISTOPHE LUMBER STACKER OPERATOR, DYLAN S 535.00 ACUTE GASTRITIS (WITHOUT HEMORRHAGE) 03/27/2012 CHRISTOPHE LUMBER STACKER OPERATOR, DYLAN S 695.4 LUPUS ERYTHEMATOSUS 03/27/2012 CHRISTOPHE LUMBER STACKER OPERATOR, DYLAN S 535.00 ACUTE GASTRITIS (WITHOUT HEMORRHAGE) 03/27/2012 CHRISTOPHE LUMBER STACKER OPERATOR, DYLAN S 695.4 LUPUS ERYTHEMATOSUS 06/20/2012 CHRISTOPHE LUMBER STACKER OPERATOR, DYLAN S 338.29 CHRONIC PAIN 06/20/2012 CHRISTOPHE YENN, DYLAN S 786.09 DYSPNEA 06/20/2012 CHRISTOPHE LUMBER STACKER OPERATOR DYLAN S V04.81 FLU DX (3 YRS AND ABOVE, IM) 06/20/2012 CHRISTOPHE LUMBER STACKER OPERATOR, DYLAN S 338.29 CHRONIC PAIN 06/20/2012 CHRISTOPHE YENN DYLAN S 786.09 DYSPNEA 06/20/2012 CHRISTOPHE LUMBER STACKER OPERATOR, DYLAN S V04.81 FLU DX (3 YRS AND ABOVE, IM) 06/20/2012 MATT PICHARDO MD 338.29 CHRONIC PAIN 06/20/2012 MATT PICHARDO MD 786.09 DYSPNEA 06/20/2012 MATT PICHARDO MD V04.81 FLU DX (3 YRS AND ABOVE, IM) 06/20/2012 CHRISTOPHE RILEY DLYAN S 338.29 CHRONIC PAIN 06/20/2012 HECTOR SAEED [...] DX (3 YRS AND ABOVE, IM) 06/20/2012 HCETOR SAEED APRNNDA S 338.29 CHRONIC PAIN 06/20/2012 [...] DYLAN S 790.99 abnormal lab 02/13/2013 MORE LUMBER STACKER OPERATOR, JOHANN A 790.99 abnormal lab 02/13/2013 MORE LUMBER STACKER OPERATOR, JOHANN A 790.99 abnormal lab 02/13/2013 CHRISTOPHE LUMBER STACKER OPERATOR, DYLAN S 790.99 abnormal lab 02/13/2013 CHRISTOPHE RILEY, DYLAN S 790.99 ABNORMAL LAB 07/11/2013 CHRISTOPHE RILEY DYLAN S 788.1 DYSURIA 07/11/2013 AYESHA SAEED APRNA S V58.69 HIGH RISK MEDICATION 07/11/2013 HECTOR SAEED APRNNDA S 788.1 DYSURIA 07/11/2013 CHRISTOPHE LUMBER STACKER OPERATOR, DYLAN S V58.69 HIGH RISK MEDICATION 07/11/2013 CHRISTOPHE LUMBER STACKER OPERATOR, DYLAN S 788.1 DYSURIA 07/11/2013 CHRISTOPHE LUMBER STACKER OPERATOR, DYLAN S V58.69 HIGH RISK MEDICATION 07/11/2013 MORE LUMBER STACKER OPERATOR, JOHANN A 788.1 DYSURIA 07/11/2013 MORE LUMBER STACKER OPERATOR, JOHANN A V58.69 HIGH RISK MEDICATION 07/11/2013 MORE LUMBER STACKER OPERATOR, JOHANN A 788.1 DYSURIA 07/11/2013 MORE LUMBER STACKER OPERATOR, JOHANN A V58.69 HIGH RISK MEDICATION 07/11/2013 CHRISTOPHE LUMBER STACKER OPERATOR, DYLAN S 788.1 DYSURIA 07/11/2013 CHRISTOPHE LUMBER STACKER OPERATOR, DYLAN S V58.69 HIGH RISK MEDICATION 07/11/2013 CHRISTOPHE LUMBER STACKER OPERATOR, DYLAN S 788.1 DYSURIA 07/11/2013 CHRISTOPHE YENN, DYLAN S V58.69 HIGH RISK MEDICATION 07/18/2013 CHRISTOPHE YENN, DYLAN S 380.10 OTITIS EXTERNA RIGHT 07/18/2013 CHRISTOHPE YENN, DYLAN S 380.10 OTITIS EXTERNA RIGHT 07/18/2013 CHRISTOPHE YENN, DYLAN S 380.10 OTITIS EXTERNA RIGHT 07/18/2013 MORE LUMBER STACKER OPERATOR, JOHANN A 380.10 OTITIS EXTERNA RIGHT 07/18/2013 MORE LUMBER STACKER OPERATOR, JOHANN A 380.10 OTITIS EXTERNA RIGHT 07/18/2013 CHRISTOPHE RILEY, DYLAN S 380.10 OTITIS EXTERNA RIGHT 07/18/2013 CHRISTOPHE YENN DYLAN S 380.10 OTITIS EXTERNA RIGHT 10/29/2013 CHRISTOPHE YENN, DYLAN S V15.82 Nicotine abuse 10/29/2013 CHRISTOPHE YENN DYLAN S V15.82 Nicotine abuse 10/29/2013 MORE LUMBER STACKER OPERATOR, JOHANN A V15.82 Nicotine abuse 10/29/2013 MORE LUMBER STACKER OPERATOR, JOHANN A V15.82 Nicotine abuse 10/29/2013 CHRISTOPHE [...] CESSATION 04/15/2014 MORE RILEY JOHANN A V72.31 SCREEN MACHINE OPERATOR EXAM, ROUTINE 04/15/2014 MORE RILEY JOHANN A V73.81 HPV SCREENING 04/15/2014 MORE RILEY JOHANN A V76.10 BREAST CANCER SCREENING 04/15/2014 MORE RILEY JOHANN A V76.2 CERVICAL CANCER SCREENING (PAP SMEAR) 04/15/2014 MORE RILEY JOHANN A V76.51 COLON CANCER SCREENING 04/15/2014 MORE RILEY JOHANN A V65.42 COUNSELING - SMOKING CESSATION 04/15/2014 MORE RILEY JOHANN A V72.31 SCREEN MACHINE OPERATOR EXAM, ROUTINE 04/15/2014 MORE RILEY JOHANN A V73.81 HPV SCREENING 04/15/2014 MORE YENaMrielle JOHANN A V76.10 BREAST CANCER SCREENING 04/15/2014 MORE YENMarielle JOHANN A V76.2 CERVICAL CANCER SCREENING (PAP SMEAR) 04/15/2014 MORE YENMarielle JOHANN A V76.51 COLON CANCER SCREENING 04/15/2014 HECTOR SAEED APRNNDA S V65.42 COUNSELING - SMOKING CESSATION 04/15/2014 HECTOR SAEED APRNNDA S V72.31 SCREEN MACHINE OPERATOR EXAM, ROUTINE 04/15/2014 HECTOR SAEED APRNNDA S V73.81 HPV SCREENING 04/15/2014 HECTOR SAEED APRNNDA S V76.10 BREAST CANCER SCREENING 04/15/2014 HECTOR SAEED APRNNDA S V76.2 CERVICAL CANCER SCREENING (PAP SMEAR) 04/15/2014 HECTOR SAEED APRNNDA S V76.51 COLON CANCER SCREENING 04/15/2014 DYLAN SAEED APRN V65.42 COUNSELING - SMOKING CESSATION 04/15/2014 DYLAN SAEED APRN V72.31 SCREEN MACHINE OPERATOR EXAM, ROUTINE 04/15/2014 DYLAN SAEED APRN V73.81 [...] CISNEROS MD Ot E78.5 HYPERLIPIDEMIA, UNSPECIFIED 08/16/2016 RIOC CISNEROS MD Ot I10 ESSENTIAL (PRIMARY) HYPERTENSION 08/16/2016 RICO CISNEROS MD Ot R06.02 SHORTNESS OF BREATH 08/16/2016 RICO CISNEROS MD Ot R07.9 CHEST PAIN, UNSPECIFIED 09/19/2016 Ot 789.01 ABDOMINAL PAIN, RIGHT UPPER QUADRANT 09/19/2016 Ot 593.2 CYST OF KIDNEY, ACQUIRED 09/19/2016 Ot 616.0 CERVICITIS 09/19/2016 Ot 620.2 OVARIAN CYST NEC/NOS 09/19/2016 IRCARDO NAM DO Ot V72.84 EXAM PRE-OPERATIVE NOS [...] CISNEROS MD Ot R07.9 CHEST PAIN, UNSPECIFIED 11/03/2016 Ot 789.01 ABDOMINAL PAIN, RIGHT UPPER QUADRANT 11/03/2016 Ot 593.2 CYST OF KIDNEY, ACQUIRED 11/03/2016 Ot 616.0 CERVICITIS 11/03/2016 Ot 620.2 OVARIAN CYST NEC/NOS 11/03/2016 RICARDO NAM DO Ot V72.84 EXAM PRE-OPERATIVE NOS 11/03/2016 RICO CISNEROS MD Ot E78.5 HYPERLIPIDEMIA, UNSPECIFIED 11/03/2016 RICO CISNEROS MD Ot I10 ESSENTIAL (PRIMARY) HYPERTENSION 11/03/2016 RICO CISNEROS MD Ot R06.02 SHORTNESS OF BREATH 11/03/2016 RICO CISNEROS MD Ot R07.9 CHEST PAIN, UNSPECIFIED 11/03/2016 RICO CISNEROS MD Ot E78.5 HYPERLIPIDEMIA, UNSPECIFIED 11/03/2016 RICO CISNEROS MD Ot I10 ESSENTIAL (PRIMARY) HYPERTENSION 11/03/2016 RICO CISNEROS MD Ot R06.00 DYSPNEA, UNSPECIFIED 11/03/2016 RICO CISNEROS MD Ot R06.02 SHORTNESS OF BREATH 11/03/2016 RICO CISNEROS MD Ot R07.9 CHEST PAIN, UNSPECIFIED 11/03/2016 REVA NOVAK DO Ot F41.9 ANXIETY DISORDER, UNSPECIFIED 11/03/2016 REVA NOVAK DO Ot J44.9 CHRONIC OBSTRUCTIVE PULMONARY DISEASE, U 11/03/2016 REVA NOVAK DO Ot M32.9 SYSTEMIC LUPUS ERYTHEMATOSUS, UNSPECIFIE 11/04/2016 Ot 789.01 ABDOMINAL PAIN, RIGHT UPPER QUADRANT 11/04/2016 Ot 593.2 CYST OF KIDNEY, ACQUIRED 11/04/2016 Ot 616.0 CERVICITIS 11/04/2016 Ot 620.2 OVARIAN CYST NEC/NOS 11/04/2016 RICARDO NAM DO Ot V72.84 EXAM PRE-OPERATIVE NOS 11/04/2016 RICO CISNEROS MD Ot E78.5 HYPERLIPIDEMIA, UNSPECIFIED 11/04/2016 RICO CISNEROS MD Ot I10 ESSENTIAL (PRIMARY) HYPERTENSION 11/04/2016 RICO CISNEROS MD Ot R06.02 SHORTNESS OF BREATH 11/04/2016 RICO CISNEROS MD Ot R07.9 CHEST PAIN, UNSPECIFIED 11/04/2016 RICO CISNEROS MD Ot E78.5 HYPERLIPIDEMIA, UNSPECIFIED 11/04/2016 RICO CISNEROS MD Ot I10 ESSENTIAL (PRIMARY) HYPERTENSION 11/04/2016 RICO CISNEROS MD Ot R06.00 DYSPNEA, UNSPECIFIED 11/04/2016 RICO CISNEROS MD Ot R06.02 SHORTNESS OF BREATH 11/04/2016 RICO CISNEROS MD Ot R07.9 CHEST PAIN, UNSPECIFIED 11/04/2016 REVA NOVAK DO Ot F41.9 ANXIETY DISORDER, UNSPECIFIED 11/04/2016 REVA NOVAK DO Ot J44.9 CHRONIC OBSTRUCTIVE PULMONARY DISEASE, U 11/04/2016 REVA NOVAK DO Ot M32.9 SYSTEMIC LUPUS ERYTHEMATOSUS, UNSPECIFIE 11/09/2016 Ot 789.01 ABDOMINAL PAIN, RIGHT UPPER QUADRANT 11/09/2016 Ot 593.2 CYST OF KIDNEY, ACQUIRED 11/09/2016 Ot 616.0 CERVICITIS 11/09/2016 Ot 620.2 OVARIAN CYST NEC/NOS 11/09/2016 RICARDO NAM DO Ot V72.84 EXAM PRE-OPERATIVE NOS 11/09/2016 RICO CISNEROS MD Ot E78.5 HYPERLIPIDEMIA, UNSPECIFIED 11/09/2016 RICO CISNEROS MD Ot I10 ESSENTIAL (PRIMARY) HYPERTENSION 11/09/2016 RICO CISNEROS MD Ot R06.02 SHORTNESS OF BREATH 11/09/2016 RICO CISNEROS MD Ot R07.9 CHEST PAIN, UNSPECIFIED 11/09/2016 RICO CISNEROS MD Ot E78.5 HYPERLIPIDEMIA, UNSPECIFIED 11/09/2016 RICO CISNEROS MD Ot I10 ESSENTIAL (PRIMARY) HYPERTENSION 11/09/2016 RICO CISNEROS MD Ot R06.00 DYSPNEA, UNSPECIFIED 11/09/2016 RICO CISNEROS MD Ot R06.02 SHORTNESS OF BREATH 11/09/2016 RICO CISNEROS MD Ot R07.9 CHEST PAIN, UNSPECIFIED 11/09/2016 REVA NOVAK DO Ot F41.9 ANXIETY DISORDER, UNSPECIFIED 11/09/2016 REVA NOVAK DO, Ot J44.9 CHRONIC OBSTRUCTIVE PULMONARY DISEASE, U 11/09/2016 REVA NOVAK DO Ot M32.9 SYSTEMIC LUPUS ERYTHEMATOSUS, UNSPECIFIE Procedures Code Description [place] [address] URINE DRUG SCREEN (IN-HOUSE) 07/24/2012 47823 ROUTINE VENIPUNCTURE 10/17/2012 47692 UA W/MICROSCOPY 10/17/2012 89926 HEPATITIS PROFILE 10/17/2012 [id number] COMPLETE BLOOD COUNT NO DIFF (CBC Result) 10/17/2012 60334 DIFFERENTIAL WBC COUNT (CBC DIFF RESULT) 10/17/2012 57764 HIV ANTIBODIES (RML) 10/17/2012 73162 CULTURE NASAL 53254 SM ANTIBODY (ANTI ARCHER) 10/19/2012 98302 CBC W/MANUAL DIF (order) 10/22/2012 99014 CARDIOLIPIN ANTIBODY 10/22/2012 LUPUS LUPUS ANTICOAGULANT ANALYZER 10/22/2012 76977 BIOPSY SKIN LESION (SINGLE) 10/26/2012 73135 ROUTINE VENIPUNCTURE 12/13/2012 38444 CBC 12/14/2012 19191 ROUTINE VENIPUNCTURE 02/01/2013 4597902 IMMATURE PLATELET FRACTION (RESULT ONLY) 02/04/2013 94140 CBC 02/04/2013 89529 DIFFERENTIAL WBC COUNT (CBC DIFF RESULT) 02/04/2013 48688 PERIPHERIAL BLOOD SMEAR 02/04/2013 18777 RETICULOCYTE COUNT 02/04/2013 [id number] HEMATOLOGY OTHER REPORT 02/04/2013 52333 ROUTINE VENIPUNCTURE 03/11/2013 62247 ASSAY OF ERYTHROPOIETIN 03/11/2013 26855 ROUTINE VENIPUNCTURE 05/09/2013 51099 CBC 05/09/2013 73389 CMP 05/09/2013 1060350 GFR CALC (RESULT ONLY) 05/09/2013 71942 URINE DRUG SCREEN (IN-HOUSE) 07/11/2013 47842 UA W/ CULTURE IF INDICATED 07/11/2013 16280 CULTURE URINE G0008 FLU ADMINISTRATION (MEDICARE ONLY) 07/18/2013 99796 ROUTINE VENIPUNCTURE 10/29/2013 98126 URINE DRUG SCREEN (IN-HOUSE) 10/29/2013 3480511 GFR CALC (RESULT ONLY) 10/29/2013 50640 CMP 10/29/2013 47275 CBC 10/29/2013 04008 UA W/ CULTURE IF INDICATED 03/19/2014 52045 CULTURE URINE 94149 [employer] 2013 Q0091 PAP SMEAR OBTAIN SMEAR 04/15/2014 07049 MAMMOGRAM, SCREENING 04/17/2014 58415 PAP SMEAR 2013 General S Ricardo Nam 05/02/2014 93183 HEMOCCULT 2013 56811 HEMOCCULT 2013 23402 ROUTINE VENIPUNCTURE 06/16/2014 42667 CBC 06/16/2014 2390374 GFR CALC (RESULT ONLY) 06/16/2014 05178 CMP 06/16/2014 05717 LIPID PANEL 06/16 01018 [employer] 2014 Results Test Result Range Arterial blood gas measurement - 11/03/16 11:31 Blood pCO2 45 mm[Hg] 35-45 Blood pO2 56 mm[Hg] 79-93 Arterial blood bicarbonate measurement (moles/volume) 26 mmol/L 23-27 Arterial blood base excess by calculation 1.7 mmol/L -2.5-2.5 Arterial blood oxygen saturation measurement 92 % 94-100 * Inhaled oxygen flow rate N/A NRG Arterial blood pH measurement with patient temperature correction 7.39 7.37-7.43 Arterial blood carbon dioxide, total measurement (moles/volume) 27.7 mmol/L 21.0-31.0 Body site LEFT RADIAL NRG Assessment of wrist artery patency prior to arterial puncture POSITIVE NRG Setting of ventilation mode NO NRG Measurement of body temperature 97.7 NRG Encounters ACCT No. Visit Date/Time Discharge Status Pt. Type Provider Facility Loc./Unit Complaint [id number] 11/03/2014 15:57:00 11/03/2014 23: 59:59 CLS Outpatient DYLAN SAEED APRN [id number] 06/14/2014 00:00:00 06/14/2014 23: 59:59 CLS Outpatient DYLAN SAEED APRN [id number] 05/02/2014 16:11:00 05/02/2014 23: 59:59 CLS Outpatient JOHANN AGUERO APRN [id number] 04/15/2014 10:28:00 04/15/2014 23: 59:59 CLS Outpatient JOHANN AGUERO APRN [id number] 03/19/2014 11:43:00 03/19/2014 23: 59:59 CLS Outpatient DYLAN SAEED APRN [id number] 10/29/2013 11:15:00 10/29/2013 23: 59:59 CLS Outpatient DYLAN SAEED APRN S [id number] 07/18/2013 10:57:00 07/18/2013 23: 59:59 CLS Outpatient DYLAN SAEED APRN S [id number] 07/11/2013 12:31:00 07/11/2013 23: 59:59 CLS Outpatient DYLAN SAEED APRN S [id number] 05/09/2013 12:00:00 05/09/2013 23: 59:59 CLS Outpatient DYLAN SAEED APRN S [id number] 10/25/2012 18:07:00 10/25/2012 23: 59:59 CLS Outpatient DYLAN SAEED APRN S [id number] 10/17/2012 11:30:00 10/17/2012 23: 59:59 CLS Outpatient MATT PICHARDO MD [id number] 07/24/2012 12:39:00 07/24/2012 23: 59:59 CLS Outpatient DYLAN SAEED APRN S [id number] 06/20/2012 12:54:00 06/20/2012 23: 59:59 CLS Outpatient DYLAN SAEED APRN S [id number] 03/11/2013 11:37:00 Document Registration [id number] 02/01/2013 10:37:00 Document Registration [id number] 12/13/2012 17:29:00 Document Registration
== END ==
LOC: RT 15:22
PROVIDERS: ATTEND Internal Medicine Critical Care Medicine
DX: J44.9 Chronic obstructive pulmonary disease, unspecified (principal); M32.9 Systemic lupus erythematosus, unspecified; F41.9 Anxiety disorder, unspecified
CPT/HCPCS: 94060; 94640; 94726; 94729

== ENCOUNTER 2016-11-28 19:45 | Outpatient (CLI) | payer OTHER ==
[~2016-11-28 19:45] MED LIST changes: -RT-ALBUTEROL SULF 2.5 MG/3 ML PRE-MIX VIAL INH ONE
== END 2016-11-29 06:00 | disposition home or self-care (01) ==
LOC: SLEEP 19:45
PROVIDERS: ATTEND Internal Medicine Critical Care Medicine
DX: J44.9 Chronic obstructive pulmonary disease, unspecified (principal); M32.9 Systemic lupus erythematosus, unspecified; F41.9 Anxiety disorder, unspecified
CPT/HCPCS: 95810

== ENCOUNTER 2017-02-03 20:59 | Outpatient (CLI) | payer OTHER | END 2017-02-04 06:15 | disposition home or self-care (01) | LOC: SLEEP 20:59 | PROVIDERS: ATTEND Nurse Practitioner Family | DX: G47.33 Obstructive sleep apnea (adult) (pediatric) (principal) | CPT/HCPCS: 95811 ==

== ENCOUNTER → 2017-12-25 | Outpatient (CLI) | payer MEDICARE, OTHER ==
[~2017-12-25] MED LIST changes: +ALBU2.5V4 IH; +BUDE10.2 IH; +CETI10TA20 PO; +DOXY100C PO; +GABA600T2 PO; +HYDR200T78 PO; +HYDR25TA4 PO; +MONT10TA21 PO; +RANI75TA21 PO; +TIOT18CA2 IH; +TRAZ150T72 PO
--- NOTE | 2017-12-25 12:53 | Diagnostic Imaging Report ---
PROCEDURE: CT chest without contrast. TECHNIQUE: Multiple contiguous axial images were obtained through the chest without the use of intravenous contrast. INDICATION: Abnormal chest x-ray demonstrating soft tissue fullness, right paratracheal region. COMPARISON: Correlation is made with recent chest x-ray from 12/19/2017. FINDINGS: No axillary lymphadenopathy is seen. Hilar and mediastinal evaluation is limited without intravenous contrast. There is a large soft tissue mass located in the right paratracheal location accounting for the chest x-ray abnormality. Mass measures 4.6 cm AP by 4.0 cm transverse by 4.4 cm cephalocaudal. This is located in the right suprahilar right upper lobe. No associated calcifications are seen. There are small lymph nodes in the mediastinum, indeterminate. No pericardial or pleural fluid is detected. There are emphysematous changes throughout both lungs. No other parenchymal abnormalities are detected. IMPRESSION: Large irregular right upper lobe mass medially, corresponding to the chest x-ray abnormality. Features are concerning for primary lung neoplasm in a background of significant emphysematous changes. No significant lymphadenopathy is detected. Dictated by: Dictated on workstation # [id number]
== END ==
LOC: RAD 12:01
PROVIDERS: ATTEND Nurse Practitioner Family
DX: R91.8 Other nonspecific abnormal finding of lung field (principal); J44.9 Chronic obstructive pulmonary disease, unspecified; F17.200 Nicotine dependence, unspecified, uncomplicated
CPT/HCPCS: 71250

== ENCOUNTER → 2018-01-02 | Outpatient (CLI) | payer MEDICARE, OTHER ==
--- NOTE | 2018-01-02 16:23 | Diagnostic Imaging Report ---
EXAM: PET/CT INDICATION: Lung mass TECHNIQUE: PET/CT imaging was obtained from the base of the skull through the pelvis after the administration of 13.25 mCi of F-[address] imaging was utilized for localization and attenuation correction purposes. The low energy CT utilized for attenuation correction is not considered to be of high enough spatial resolution to allow in and of itself a separate anatomical analysis. COMPARISON: There are no previous PET/CT examinations available for comparison. The CT chest exam performed on 12/25/2017 did note a 4.6 x 4.0 x 4.4 cm soft tissue mass in the right paratracheal region. Reportedly, this lesion was subsequently biopsied and a diagnosis of carcinoma of the lung has been established. On this study, the mass is again identified. The mass is intensely hypermetabolic with a maximum SUV of 10.9. However, there is no other hypermetabolic activity identified. There is physiologic activity in the brain, the heart, the kidneys, the bowel and the bladder. The CT images fail to show any sign of an acute abnormality. There is diverticulosis of the sigmoid and descending colon but there is no sign of acute diverticulitis. The osseous structures, where visualized are intact. There does seem to be trefoil stenosis at L4-5 with neuroforaminal narrowing bilaterally. IMPRESSION: 1. The mass in the right paratracheal region seen on the recent CT exam is intensely hypermetabolic. This would coincide with the patient's diagnosis of carcinoma of the lung. 2. There is no other hypermetabolic activity to suggest the presence of neoplasm. 3. There is no acute abnormality of the neck, chest, abdomen or pelvis. 4. There is degenerative disc, ligamentous and bony disease at L4-5. This does result in mild trefoil stenosis. Dictated by: Dictated on workstation # [id number]
== END ==
LOC: RAD 12:01
PROVIDERS: ATTEND Nurse Practitioner Family
DX: C34.91 Malignant neoplasm of unspecified part of right bronchus or lung (principal); M48.061 Spinal stenosis, lumbar region without neurogenic claudication; M51.36 Other intervertebral disc degeneration, lumbar region; J44.9 Chronic obstructive pulmonary disease, unspecified; F17.200 Nicotine dependence, unspecified, uncomplicated

== ENCOUNTER → 2018-01-03 | Day surgery (SDC) | payer MEDICARE, OTHER ==
[~2018-01-03] VITALS: Ht 157.5 cm; Wt 85.7 kg
[~2018-01-03] MED LIST changes: +DEXAMETHASONE 10 MG/ML (DECADRON) 1 ML VIAL ONE; +FAMOTIDINE 20MG/2ML IV (PEPCID) IV ONE; +LACTATED RINGERS 1,000 ML IV ONE; +LACTATED RINGERS 1,000 ML IV STA; +LIDOCAINE 4% INJ (XYLOCAINE) 5ML AMP INJ ONE; +LIDOCAINE JELLY 2% (XYLOCAINE) 30 ML TUBE TOP ONE; +LIDOCAINE PF 1% 2 ML AMP INJ ONE; +LIDOCAINE PF 2% 5 ML (XYLOCAINE) VIAL ONE; +MIDAZOLAM 2 MG/2 ML (VERSED) VIAL ONE; +ONDANSETRON 4 MG/2 ML (SDV) Z0FRAN IV ONE; +PROPOFOL INJECTION 100 ML IV ONE; +ROCURONIUM 10 MG/ML 5 ML SYRINGE IV ONE; +fentaNYL INJECTION 100 MCG/2 ML AMP ONE; +proPOfol 200 MG/20 ML (DIPRIVAN) VIAL IV ONE
--- OUTSIDE RECORDS SUMMARY | 2018-01-03 07:11 | XMS REPORT ---
Author Author RICO CISNEROS [facility] Address [address] [place] [address] Care Team Providers Care Sign Board Erector Name Role Phone RICO CISNEROS Unavailable PROBLEMS Type Condition ICD9-CM Code [id number] Code Onset Dates Condition Status SNOMED Code Problem Chronic obstructive pulmonary disease, unspecified COPD type J44.9 Active 86200967 Problem Dysthymia F34.1 Active 68451489 Problem High risk medication use Z79.899 Active 902523423 Problem Other emphysema J43.8 Active 36486428 Problem Primary osteoarthritis of left knee M17.12 Active 746416131 Problem Grief F43.20 Active 54571692 Problem Hidradenitis suppurativa L73.2 Active 53709556 Problem Hyperlipidemia, unspecified hyperlipidemia type E78.5 Active 19272320 Problem GERD without esophagitis K21.9 Active 122337619 Problem Essential hypertension I10 Active 86766591 Problem Nicotine abuse Z72.0 Active 56630919 Problem Lupus M32.9 Active 90636681 Problem Sciatica, unspecified laterality M54.30 Active 95899361 Problem Insomnia, unspecified type G47.00 Active 220801482 Problem Low back pain, unspecified back pain laterality, with sciatica presence unspecified M54.5 Active 091203361 Problem Osteoarthritis of left hand, unspecified osteoarthritis type M19.042 Active 57657253 Problem H/O pulmonary function tests V15.89 Active 199208484 Problem Dry eye, unspecified laterality H04.129 Active 809414877 ALLERGIES No Information SOCIAL HISTORY Never Assessed PLAN OF CARE Activity Details Follow Up 1 Year Reason: VITAL SIGNS Height 63 in 2016-10-21 Weight 207 lbs 2016-10-21 Heart Rate 82 bpm 2016-10-21 BMI 36.66 kg/m2 2016-10-21 Blood pressure systolic 130 mmHg 2016-10-21 Blood pressure diastolic 88 mmHg 2016-10-21 MEDICATIONS Medication Instructions Dosage Frequency Start Date End Date Duration Status Ranitidine HCl 150 MG Orally 2 times a day 1 tablet 12h 90 days Active Hydroxychloroquine Sulfate 200 Orally 3 times a day 2 tablets 8h Active Symbicort 160-4.5 MCG/ACT Inhalation Twice a day 1 puff 12h Jul, Active Ibuprofen 200 mg Orally every 12 hrs 4 tablet as needed 12h Active Cyclobenzaprine HCl 10 MG Orally Three times a day 1 tablet as needed 8h 30 days Active Sertraline HCl 50 mg Orally Once a day 1 tablet 24h Jan, Active Tylenol 325 MG Orally every 6 hrs 2 tablets as needed 6h Active Neurontin 300 MG Orally Three times a day 2 capsules 8h Apr, 30 days Active Doxycycline Hyclate 100 MG Orally every 12 hrs 1 capsule 12h Jan, 30 days Active Triamcinolone Acetonide 0.1 % 1 Ointment by Topical route 2 times per day PRN apply thin layer to affected area BID 60 grams 12h 23 Feb, 2014 Active Zestril 20 MG Orally Once a day 3 tablets 24h Active Trazodone HCl 100 MG Orally at bedtime and 0.5 Tablet at noon 1 tablet 30 days Active Multivitamin Active RESULTS No Results PROCEDURES No Known procedures IMMUNIZATIONS No Known Immunizations MEDICAL (GENERAL) HISTORY Type Description Date Medical History hypertension Medical History lupus Medical History arthritis Medical History H/O pulmonary function tests Medical History COPD Medical History stress test 08/2016 WNL Surgical History x 3 Surgical History ganglian cyst Hospitalization History surgeries
--- OUTSIDE RECORDS SUMMARY | 2018-01-03 07:11 | XMS REPORT ---
Author Author DYLAN SAEED [facility] Address [address] [place] [address] Care Team Providers Care Night Warehouse Manager Name Role Phone DYLAN SAEED Unavailable PROBLEMS Type Condition ICD9-CM Code [id number] Code Onset Dates Condition Status SNOMED Code Problem High risk medication use Z79.899 Active 904144791 Problem Sciatica, unspecified laterality M54.30 Active 20185597 Problem Osteoarthritis of left hand, unspecified osteoarthritis type M19.042 Active 12478466 Problem Hyperlipidemia, unspecified hyperlipidemia type E78.5 Active 79894497 Problem GERD without esophagitis K21.9 Active 948875566 Problem Grief F43.20 Active 10438494 Problem Dry eye, unspecified laterality H04.129 Active 885283884 Problem Hidradenitis suppurativa L73.2 Active 12793955 Problem Dysthymia F34.1 Active 03615978 Problem Low back pain, unspecified back pain laterality, with sciatica presence unspecified M54.5 Active 732721161 Problem Lupus M32.9 Active 92883118 Problem H/O pulmonary function tests V15.89 Active 213843899 Problem Essential hypertension I10 Active 13738169 Problem Chronic obstructive pulmonary disease, unspecified COPD type J44.9 Active 67816577 Problem Nicotine abuse Z72.0 Active 42214936 Problem Insomnia, unspecified type G47.00 Active 933024603 ALLERGIES Unknown Allergies SOCIAL HISTORY No smoking Hx information available PLAN OF CARE VITAL SIGNS MEDICATIONS Medication Instructions Dosage Frequency Start Date End Date Duration Status Neurontin 600 MG Orally Three times a day 1 capsule 8h Apr, 30 days Active RESULTS No Results PROCEDURES No Known procedures IMMUNIZATIONS No Known Immunizations
--- OUTSIDE RECORDS SUMMARY | 2018-01-03 07:11 | XMS REPORT ---
Author Author DYLAN SAEED [facility] Address [address] [place] [address] Care Team Providers Care Life Claims Examiner Name Role Phone DYLAN SAEED Unavailable PROBLEMS Type Condition ICD9-CM Code [id number] Code Onset Dates Condition Status SNOMED Code Problem Chronic obstructive pulmonary disease, unspecified COPD type J44.9 Active 87193566 Problem Dysthymia F34.1 Active 23888732 Problem High risk medication use Z79.899 Active 668861407 Problem Other emphysema J43.8 Active 19488545 Problem Primary osteoarthritis of left knee M17.12 Active 734294848 Problem Grief F43.20 Active 66242818 Problem Hidradenitis suppurativa L73.2 Active 46007001 Problem Hyperlipidemia, unspecified hyperlipidemia type E78.5 Active 13416375 Problem GERD without esophagitis K21.9 Active 695508563 Problem Essential hypertension I10 Active 55459247 Problem Nicotine abuse Z72.0 Active 86988108 Problem Lupus M32.9 Active 57426360 Problem Sciatica, unspecified laterality M54.30 Active 79332903 Problem Insomnia, unspecified type G47.00 Active 147919029 Problem Low back pain, unspecified back pain laterality, with sciatica presence unspecified M54.5 Active 069795376 Problem Osteoarthritis of left hand, unspecified osteoarthritis type M19.042 Active 53870213 Problem H/O pulmonary function tests V15.89 Active 894976217 Problem Dry eye, unspecified laterality H04.129 Active 610963121 ALLERGIES No Information SOCIAL HISTORY Never Assessed PLAN OF CARE VITAL SIGNS MEDICATIONS Medication Instructions Dosage Frequency Start Date End Date Duration Status Doxycycline Hyclate 100 mg Orally every 12 hrs 1 capsule 12h 07 Jan, 2016 30 days Active Ranitidine HCl 150 MG Orally 2 times a day 1 tablet 12h 90 days Active Hydroxychloroquine Sulfate 200 MG Orally 3 times a day 2 tablets 8h 90 days Active Neurontin 300 MG Orally Three times a day 2 capsules 8h 28 Apr, 2015 30 days Active RESULTS No Results PROCEDURES No Known procedures IMMUNIZATIONS No Known Immunizations MEDICAL (GENERAL) HISTORY Type Description Date Medical History hypertension Medical History lupus Medical History arthritis Medical History H/O pulmonary function tests Medical History COPD Medical History stress test 08/2016 WNL Surgical History x 3 Surgical History ganglian cyst Hospitalization History surgeries
--- OUTSIDE RECORDS SUMMARY | 2018-01-03 07:11 | XMS REPORT ---
Author Author DYLAN SAEED [facility] Address [address] [place] [address] Care Team Providers Care Absorption Plant Operator Helper Name Role Phone DYLAN SAEED Unavailable PROBLEMS Type Condition ICD9-CM Code [id number] Code Onset Dates Condition Status SNOMED Code Problem Chronic obstructive pulmonary disease, unspecified COPD type J44.9 Active 73278532 Problem Dysthymia F34.1 Active 10944311 Problem High risk medication use Z79.899 Active 849776294 Problem Other emphysema J43.8 Active 44054721 Problem Primary osteoarthritis of left knee M17.12 Active 896319362 Problem Grief F43.20 Active 84450602 Problem Hidradenitis suppurativa L73.2 Active 71897602 Problem Hyperlipidemia, unspecified hyperlipidemia type E78.5 Active 42206459 Problem GERD without esophagitis K21.9 Active 540321050 Problem Essential hypertension I10 Active 35391836 Problem Nicotine abuse Z72.0 Active 98909683 Problem Lupus M32.9 Active 86506720 Problem Sciatica, unspecified laterality M54.30 Active 70919642 Problem Insomnia, unspecified type G47.00 Active 450726505 Problem Low back pain, unspecified back pain laterality, with sciatica presence unspecified M54.5 Active 595737946 Problem Osteoarthritis of left hand, unspecified osteoarthritis type M19.042 Active 79497142 Problem H/O pulmonary function tests V15.89 Active 312967949 Problem Dry eye, unspecified laterality H04.129 Active 085192146 ALLERGIES No Information SOCIAL HISTORY Never Assessed PLAN OF CARE VITAL SIGNS MEDICATIONS Medication Instructions Dosage Frequency Start Date End Date Duration Status Cyclobenzaprine HCl 10 MG Orally Three times a day 1 tablet as needed 8h 30 days Active Trazodone HCl 100 MG Orally at bedtime and 0.5 Tablet at noon 1 tablet 30 days Active RESULTS No Results PROCEDURES No Known procedures IMMUNIZATIONS No Known Immunizations MEDICAL (GENERAL) HISTORY Type Description Date Medical History hypertension Medical History lupus Medical History arthritis Medical History H/O pulmonary function tests Medical History COPD Medical History stress test 08/2016 WNL Surgical History x 3 Surgical History ganglian cyst Hospitalization History surgeries
--- OUTSIDE RECORDS SUMMARY | 2018-01-03 07:11 | XMS REPORT ---
Author Author DYLAN SAEED [facility] Address [address] [place] [address] Care Team Providers Care Food And Beverage Manager Name Role Phone DYLAN SAEED Unavailable PROBLEMS Type Condition ICD9-CM Code MGT75-GT Code Onset Dates Condition Status SNOMED Code Problem High risk medication use Z79.899 Active 321807805 Problem Sciatica, unspecified laterality M54.30 Active 32035838 Problem Osteoarthritis of left hand, unspecified osteoarthritis type M19.042 Active 95658893 Problem Hyperlipidemia, unspecified hyperlipidemia type E78.5 Active 36878395 Problem GERD without esophagitis K21.9 Active 484008395 Problem Grief F43.20 Active 20208079 Problem Dry eye, unspecified laterality H04.129 Active 845836680 Problem Hidradenitis suppurativa L73.2 Active 09159917 Problem Dysthymia F34.1 Active 72369670 Problem Low back pain, unspecified back pain laterality, with sciatica presence unspecified M54.5 Active 028759727 Problem Lupus M32.9 Active 06764062 Problem H/O pulmonary function tests V15.89 Active 566198392 Problem Essential hypertension I10 Active 63817208 Problem Chronic obstructive pulmonary disease, unspecified COPD type J44.9 Active 24610373 Problem Nicotine abuse Z72.0 Active 14876654 Problem Insomnia, unspecified type G47.00 Active 513175888 ALLERGIES Unknown Allergies SOCIAL HISTORY No smoking Hx information available PLAN OF CARE VITAL SIGNS MEDICATIONS Medication Instructions Dosage Frequency Start Date End Date Duration Status Cyclobenzaprine HCl 10 mg Orally Three times a day 1 tablet as needed 8h 30 days Active RESULTS No Results PROCEDURES No Known procedures IMMUNIZATIONS No Known Immunizations
--- OUTSIDE RECORDS SUMMARY | 2018-01-03 07:11 | XMS REPORT ---
Author Author DYLAN SAEED Organization [employer] Address Unknown Phone Unavailable Care Team Providers Care Fur Floor Worker Name Role Phone DYLAN SAEED CP Unavailable Allergies No Known Allergies Problems Problem Type Condition Code Onset Dates Condition Status Problem Essential hypertension I10 Active Problem Lupus M32.9 Active Problem Nicotine abuse Z72.0 Active Problem Low back pain, unspecified back pain laterality, with sciatica presence unspecified M54.5 Active Problem Sciatica, unspecified laterality M54.30 Active Problem Osteoarthritis of left hand, unspecified osteoarthritis type M19.042 Active Problem Dry eye, unspecified laterality H04.129 Active Problem Chronic obstructive pulmonary disease, unspecified COPD type J44.9 Active Problem H/O pulmonary function tests V15.89 Active Problem High risk medication use Z79.899 Active Problem Insomnia, unspecified type G47.00 Active Medications No Known Medications Results No Known Results Summary Purpose [employer] Submission
--- OUTSIDE RECORDS SUMMARY | 2018-01-03 07:12 | XMS REPORT ---
Author Author RICO CISNEROS Organization [facility] Address [address] [place] [address] Care Team Providers Care Environmental Studies Professor Name Role Phone RICO CISNEROS Unavailable PROBLEMS Type Condition ICD9-CM Code WSP28-FX Code Onset Dates Condition Status SNOMED Code Problem Chronic obstructive pulmonary disease, unspecified COPD type J44.9 Active 47510918 Problem Dysthymia F34.1 Active 54866351 Problem High risk medication use Z79.899 Active 506971932 Problem Other emphysema J43.8 Active 49069107 Problem Primary osteoarthritis of left knee M17.12 Active 048841528 Problem Grief F43.20 Active 55618903 Problem Hidradenitis suppurativa L73.2 Active 74071367 Problem Hyperlipidemia, unspecified hyperlipidemia type E78.5 Active 32109943 Problem GERD without esophagitis K21.9 Active 916066571 Problem Essential hypertension I10 Active 69047578 Problem Nicotine abuse Z72.0 Active 87687827 Problem Lupus M32.9 Active 07082033 Problem Sciatica, unspecified laterality M54.30 Active 19135844 Problem Insomnia, unspecified type G47.00 Active 857132800 Problem Low back pain, unspecified back pain laterality, with sciatica presence unspecified M54.5 Active 751779500 Problem Osteoarthritis of left hand, unspecified osteoarthritis type M19.042 Active 70843665 Problem H/O pulmonary function tests V15.89 Active 199420077 Problem Dry eye, unspecified laterality H04.129 Active 179843972 ALLERGIES Unknown Allergies SOCIAL HISTORY No smoking Hx information available PLAN OF CARE VITAL SIGNS MEDICATIONS Unknown Medications RESULTS No Results PROCEDURES No Known procedures IMMUNIZATIONS No Known Immunizations
--- OUTSIDE RECORDS SUMMARY | 2018-01-03 07:12 | XMS REPORT ---
Author Author DYLAN SAEED Organization [employer] Address Unknown Phone Unavailable Care Team Providers Care Hostler Helper Name Role Phone DYLAN SAEED CP Unavailable Allergies No Known Allergies Problems Problem Type Condition Code Onset Dates Condition Status Problem Lupus erythematosus 695.4 Active Problem Acute gastritis without mention of hemorrhage 535.00 Active Problem Other dyspnea and respiratory abnormalities 786.09 Active Problem Need for prophylactic vaccination and inoculation, Influenza V04.81 Active Problem Urinary tract infection, site not specified 599.0 Active Problem Unspecified breast screening V76.10 Active Problem Elevated blood pressure reading without diagnosis of hypertension 796.2 Active Problem Special screening for malignant neoplasms, colon V76.51 Active Problem Abnormal weight gain 783.1 Active Problem Counseling on substance use and abuse V65.42 Active Problem Screening for malignant neoplasm of the cervix V76.2 Active Problem Routine gynecological examination V72.31 Active Problem Personal history of tobacco use, presenting hazards to health V15.82 Active Problem Essential hypertension, benign 401.1 Active Problem Fever, unspecified 780.60 Active Problem Other malaise and fatigue 780.79 Active Problem Systemic lupus erythematosus 710.0 Active Problem Abdominal pain, right upper quadrant 789.01 Active Problem Dysuria 788.1 Active Problem Encounter for long-term (current) use of other medications V58.69 Active Problem Unspecified disorder of the teeth and supporting structures 525.9 Active Problem Other chronic pain 338.29 Active Problem Persistent disorder of initiating or maintaining sleep 307.42 Active Problem Unspecified infective otitis externa 380.10 Active Problem Family history of other condition V19.8 Active Problem Lumbago 724.2 Active Problem Other nonspecific findings on examination of blood 790.99 Active Problem Special screening examination, human papillomavirus [HPV] V73.81 Active Problem Pain in joint, pelvic region and thigh 719.45 Active Problem Rash and other nonspecific skin eruption 782.1 Active Medications No Known Medications Results No Known Results Summary Purpose [employer] Submission
--- OUTSIDE RECORDS SUMMARY | 2018-01-03 07:12 | XMS REPORT ---
Author Author DYLAN SAEED Organization [employer] Address Unknown Phone Unavailable Care Team Providers Care Glass Belt Sander Name Role Phone DYLAN SAEED CP Unavailable Allergies No Known Allergies Problems Problem Type Condition Code Onset Dates Condition Status Problem Need for prophylactic vaccination and inoculation, Influenza V04.81 Active Problem Other dyspnea and respiratory abnormalities 786.09 Active Problem Elevated blood pressure reading without diagnosis of hypertension 796.2 Active Problem Urinary tract infection, site not specified 599.0 Active Problem Abnormal weight gain 783.1 Active Problem Abdominal pain, right upper quadrant 789.01 Active Problem Other malaise and fatigue 780.79 Active Problem Fever, unspecified 780.60 Active Problem Family history of other condition V19.8 Active Problem Dysuria 788.1 Active Problem Lumbago 724.2 Active Problem Other chronic pain 338.29 Active Problem Persistent disorder of initiating or maintaining sleep 307.42 Active Problem Unspecified disorder of the teeth and supporting structures 525.9 Active Problem Personal history of tobacco use, presenting hazards to health V15.82 Active Problem Essential hypertension, benign 401.1 Active Problem Sciatica, unspecified laterality M54.30 Active Problem Osteoarthritis of left hand, unspecified osteoarthritis type M19.042 Active Problem Rash and other nonspecific skin eruption 782.1 Active Problem Pain in joint, pelvic region and thigh 719.45 Active Problem Dry eye, unspecified laterality H04.129 Active Problem Unspecified infective otitis externa 380.10 Active Problem Chronic obstructive pulmonary disease, unspecified COPD type J44.9 Active Problem Systemic lupus erythematosus 710.0 Active Problem High risk medication use Z79.899 Active Problem Insomnia, unspecified type G47.00 Active Problem Lupus erythematosus 695.4 Active Problem Unspecified breast screening V76.10 Active Problem Acute gastritis without mention of hemorrhage 535.00 Active Problem Special screening for malignant neoplasms, colon V76.51 Active Problem Other nonspecific findings on examination of blood 790.99 Active Assessment Shortness of breath R06.02 Active Problem Special screening examination, human papillomavirus [HPV] V73.81 Active Problem Screening for malignant neoplasm of the cervix V76.2 Active Problem Encounter for long-term (current) use of other medications V58.69 Active Problem Counseling on substance use and abuse V65.42 Active Problem Routine gynecological examination V72.31 Active Medications No Known Medications Procedures Procedure Coding System Code Date SPIROMETRY CPT-4 75819 Aug 13, 2015 RESPIRATORY FLOW VOLUME LOOP CPT-4 13430 Aug 13, 2015 NEB/MDI DEMO CPT-4 74430 Aug 13, 2015 SPRIOMETRY CHALLENGE CPT-4 48110 Aug 13, 2015 Results Name Result Date Reference Range Unit Abnormality Flag PULMONARY EDUCATION (IN-HOUSE) RESPIRATORY FLOW VOLUME LOOP (IN-HOUSE) BRONCHODILATION PRE/POST (IN-HOUSE) Summary Purpose [employer] Submission
--- OUTSIDE RECORDS SUMMARY | 2018-01-03 07:12 | XMS REPORT ---
Author Author DYLAN SAEED [facility] Address [address] [place] [address] Care Team Providers Care Gluing Machine Offbearer Name Role Phone DYLAN SAEED Unavailable PROBLEMS Type Condition ICD9-CM Code [id number] Code Onset Dates Condition Status SNOMED Code Problem Chronic obstructive pulmonary disease, unspecified COPD type J44.9 Active 66429566 Problem Dysthymia F34.1 Active 03735570 Problem High risk medication use Z79.899 Active 508002781 Problem Other emphysema J43.8 Active 07688183 Problem Primary osteoarthritis of left knee M17.12 Active 105500019 Problem Grief F43.20 Active 67181882 Problem Hidradenitis suppurativa L73.2 Active 07165611 Problem Hyperlipidemia, unspecified hyperlipidemia type E78.5 Active 71528942 Problem GERD without esophagitis K21.9 Active 731493640 Problem Essential hypertension I10 Active 88819352 Problem Nicotine abuse Z72.0 Active 39022739 Problem Lupus M32.9 Active 06987973 Problem Sciatica, unspecified laterality M54.30 Active 30806173 Problem Insomnia, unspecified type G47.00 Active 631751788 Problem Low back pain, unspecified back pain laterality, with sciatica presence unspecified M54.5 Active 222324522 Problem Osteoarthritis of left hand, unspecified osteoarthritis type M19.042 Active 01666906 Problem H/O pulmonary function tests V15.89 Active 101109260 Problem Dry eye, unspecified laterality H04.129 Active 490463230 ALLERGIES No Information SOCIAL HISTORY Never Assessed PLAN OF CARE VITAL SIGNS MEDICATIONS Medication Instructions Dosage Frequency Start Date End Date Duration Status Hydrochlorothiazide 25 MG Orally Once a day 1 tablet in the morning 24h Nov, 90 days Active Zestril 30 MG Orally Once a day 2 tablets 24h 30 days Active Cyclobenzaprine HCl 10 MG Orally Three times a day 1 tablet as needed 8h 60 days Active RESULTS No Results PROCEDURES No Known procedures IMMUNIZATIONS No Known Immunizations MEDICAL (GENERAL) HISTORY Type Description Date Medical History hypertension Medical History lupus Medical History arthritis Medical History H/O pulmonary function tests Medical History COPD Medical History stress test 08/2016 WNL Surgical History x 3 Surgical History ganglian cyst Hospitalization History surgeries
--- OUTSIDE RECORDS SUMMARY | 2018-01-03 07:13 | XMS REPORT ---
Author Author DYLAN SAEED Organization [employer] Address Unknown Phone Unavailable Care Team Providers Care Professor Of Special Education Name Role Phone DYLAN SAEED CP Unavailable Allergies No Known Allergies Problems Problem Type Condition Code Onset Dates Condition Status Problem Chronic obstructive pulmonary disease, unspecified COPD type J44.9 Active Problem High risk medication use Z79.899 Active Problem Insomnia, unspecified type G47.00 Active Problem Hidradenitis suppurativa L73.2 Active Problem Dysthymia F34.1 Active Problem GERD without esophagitis K21.9 Active Problem Sciatica, unspecified laterality M54.30 Active Problem Osteoarthritis of left hand, unspecified osteoarthritis type M19.042 Active Problem Grief F43.20 Active Problem Dry eye, unspecified laterality H04.129 Active Problem Essential hypertension I10 Active Problem Nicotine abuse Z72.0 Active Assessment Chronic obstructive pulmonary disease, unspecified COPD type J44.9 Active Problem Lupus M32.9 Active Problem Low back pain, unspecified back pain laterality, with sciatica presence unspecified M54.5 Active Problem H/O pulmonary function tests V15.89 Active Medications Medication Code System Code Instructions Start Date End Date Status Dosage Symbicort [facility] [address]-75 160-4.5 MCG/ACT Inhalation Twice a day Aug 13, 2015 1 puff Results No Known Results Summary Purpose [employer] Submission
--- OUTSIDE RECORDS SUMMARY | 2018-01-03 07:13 | XMS REPORT ---
Author Author RICO CISNEROS [facility] [employer] Address Unknown Phone Unavailable Care Team Providers Care Film Critic Name Role Phone RICO CISNEROS CP Unavailable Allergies, Adverse Reactions, Alerts Substance Reaction Event Type N.K.D.A. Info Not Available Non Drug Allergy Problems Problem Type Condition Code Onset Dates Condition Status Problem Insomnia, unspecified type G47.00 Active Problem Osteoarthritis of left hand, unspecified osteoarthritis type M19.042 Active Problem High risk medication use Z79.899 Active Problem GERD without esophagitis K21.9 Active Problem Hidradenitis suppurativa L73.2 Active Problem Hyperlipidemia, unspecified hyperlipidemia type E78.5 Active Problem Dry eye, unspecified laterality H04.129 Active Problem Sciatica, unspecified laterality M54.30 Active Problem Dysthymia F34.1 Active Problem Grief F43.20 Active Assessment Shortness of breath R06.02 Active Assessment Chest pain, unspecified type R07.9 Active Assessment Hyperlipidemia, unspecified hyperlipidemia type E78.5 Active Assessment Essential hypertension I10 Active Problem Nicotine abuse Z72.0 Active Problem Lupus M32.9 Active Problem Low back pain, unspecified back pain laterality, with sciatica presence unspecified M54.5 Active Problem H/O pulmonary function tests V15.89 Active Problem Essential hypertension I10 Active Problem Chronic obstructive pulmonary disease, unspecified COPD type J44.9 Active Medications Medication Code System Code Instructions Start Date End Date Status Dosage Zestril [facility] [address]-45 20 MG Orally Once a day 3 tablets Sertraline HCl [facility] [address]-35 50 mg Orally Once a day February 02, 2016 1 tablet Multivitamin [facility] 44352-[address]126 Orally not defined Symbicort [facility] [address]-66 160-4.5 MCG/ACT Inhalation Twice a day Aug 13, 2015 1 puff Neurontin [facility] [address]-89 600 MG Orally Three times a day May 25, 2015 1 capsule Ranitidine HCl [facility] [address]-32 150 MG Orally 2 times a day 1 tablet Trazodone HCl [facility] [address]-03 100 MG Orally at bedtime and 0.5 Tablet at noon 1 tablet Triamcinolone Acetonide [facility] [address]-46 0.1 % Twice a day March 19, 2014 1 Ointment by Topical route 2 times per day PRN apply thin layer to affected area BID 60 grams Tylenol [facility] [address]-75 325 MG Orally every 6 hrs 2 tablets as needed Ibuprofen [facility] [address]-28 200 mg Orally every 12 hrs 4 tablet as needed Cyclobenzaprine HCl [facility] [address]-04 10 mg Orally Three times a day 1 tablet as needed Hydroxychloroquine Sulfate [facility] 61003622793 200 Orally 3 times a day 2 tablets Procedures Procedure Coding System Code Date Office Visit, New Pt., Level 4 CPT-4 99122 Jun 03, 2016 Vital Signs Date/Time: Jun 03, 2016 Cardiac Monitoring Heart Rate 80 bpm Weight 211 lbs Height 63 in BMI 37.37 Index Blood Pressure Diastolic 72 mmHg Blood Pressure Systolic 120 mmHg Results No Known Results Summary Purpose [employer] Submission
--- OUTSIDE RECORDS SUMMARY | 2018-01-03 07:13 | XMS REPORT ---
Author Author MATT PICHARDO Organization [facility] Address [address] [place] [address] Care Team Providers Care Family Life Counselor Name Role Phone MATT PICHARDO Unavailable PROBLEMS Type Condition ICD9-CM Code KUL91-PB Code Onset Dates Condition Status SNOMED Code Problem Chronic obstructive pulmonary disease, unspecified COPD type J44.9 Active 08944962 Problem Dysthymia F34.1 Active 45975181 Problem High risk medication use Z79.899 Active 719924554 Problem Other emphysema J43.8 Active 46200758 Problem Primary osteoarthritis of left knee M17.12 Active 320037810 Problem Grief F43.20 Active 05214343 Problem Hidradenitis suppurativa L73.2 Active 36999330 Problem Hyperlipidemia, unspecified hyperlipidemia type E78.5 Active 74182806 Problem GERD without esophagitis K21.9 Active 065721009 Problem Essential hypertension I10 Active 77971209 Problem Nicotine abuse Z72.0 Active 75602194 Problem Lupus M32.9 Active 84481511 Problem Sciatica, unspecified laterality M54.30 Active 93928855 Problem Insomnia, unspecified type G47.00 Active 218778890 Problem Low back pain, unspecified back pain laterality, with sciatica presence unspecified M54.5 Active 478859176 Problem Osteoarthritis of left hand, unspecified osteoarthritis type M19.042 Active 59855768 Problem H/O pulmonary function tests V15.89 Active 668313816 Problem Dry eye, unspecified laterality H04.129 Active [id number] ALLERGIES No Information ENCOUNTERS Encounter Location Date Diagnosis [facility] [address] [facility] [id number] [address] Nov, [facility] [address] [facility] [id number] [address] Apr, [facility] [id number] [place] [address] 24977- 1621 Mar, Chronic obstructive pulmonary disease, unspecified COPD type J44.9 ; Essential hypertension I10 ; GERD without esophagitis K21.9 ; Hyperlipidemia, unspecified hyperlipidemia type E78.5 ; Lupus M32.9 and Vertigo R42 [facility] [id number] [place] [address] 53803- 9571 Mar, [facility] [id number] [place] [address] 88843- 8199 Feb, [place] [id number] [place] [address] 72370- 2727 Feb, Essential hypertension I10 [place] [address] [address]- 4162 Feb, GERD without esophagitis K21.9 [place] [id number] [place] [address] 31195- 4325 December, Essential hypertension I10 [place] [id number] [place] [address] 89760- 9926 Nov, Chronic obstructive pulmonary disease, unspecified COPD type J44.9 [place] [id number] [place] [address] 91829- 8380 Nov, Chronic obstructive pulmonary disease, unspecified COPD type J44.9 [place] [id number] [place] [address] 10675- 1814 Nov, [place] [id number] [place] [address] 88577- 5363 Nov, Essential hypertension I10 ; Lupus M32.9 ; Other emphysema J43.8 and Breast cancer screening Z12.39 [place] [id number] [place] [address] 39628- 1594 Oct, GERD without esophagitis K21.9 [facility] [id number] [place] [address] 53277- 9313 Sep, Chest pain, unspecified type R07.9 ; Shortness of breath R06.02 ; Essential hypertension I10 and Hyperlipidemia, unspecified hyperlipidemia type E78.5 [facility] [id number] [place] [address] 05645- 7678 Sep, [facility] [id number] [place] [address] 93018- 8315 Sep, [facility] [id number] [place] [address] 12323- 4291 Aug, [facility] [id number] [place] [address] 13477- 5311 Aug, [facility] [id number] [place] [address] 79864- 0175 Jul, GERD without esophagitis K21.9 [facility] [id number] [place] [address] 93507- 5289 Jun, Systemic lupus erythematosus, unspecified SLE type, unspecified organ involvement status M32.9 [facility] [id number] [place] [address] 10727- 2286 Jun, Primary osteoarthritis of left knee M17.12 [place] [id number] [place] [address] 84887- 6635 May, [facility] [id number] [place] [address] 70469- 4964 May, Chest pain, unspecified type R07.9 ; Shortness of breath R06.02 ; Essential hypertension I10 and Hyperlipidemia, unspecified hyperlipidemia type E78.5 [facility] [id number] [place] [address] 93004- 9134 May, Essential hypertension I10 [facility] [id number] [place] [address] 49109- 3616 Apr, Sciatica, unspecified laterality M54.30 [facility] [id number] [place] [address] 45984- 1112 14 Apr, 2016 [place] [id number] [place] [address] 40401- 8295 Mar, Chronic obstructive pulmonary disease, unspecified COPD type J44.9 [place] [id number] [place] [address] 03631- 7490 Mar, Acute pain of left knee M25.562 ; Dysthymia F34.1 ; Lupus M32.9 ; Clumsiness R27.8 and Family history of early CAD Z82.49 [place] [id number] [place] [address] 16234- 9917 Mar, Essential hypertension I10 [place] [address] 76573- 3498 Feb, [place] [id number] [place] [address] 65955- 6051 Feb, Insomnia, unspecified type G47.00 ; Sciatica, unspecified laterality M54.30 and Low back pain, unspecified back pain laterality, with sciatica presence unspecified M54.5 [place] [id number] [place] [address] 10046- 4162 Jan, Hidradenitis suppurativa L73.2 ; Dysthymia F34.1 and Grief F43.20 [place] [id number] [place] [address] 21399- 1894 December, [place] [id number] [place] [address] 01013- 2877 December, Essential hypertension I10 ; Sciatica, unspecified laterality M54.30 ; GERD without esophagitis K21.9 ; Insomnia, unspecified type G47.00 and Low back pain, unspecified back pain laterality, with sciatica presence unspecified M54.5 [place] [id number] [place] [address] 20947- 0053 December, [place] [id number] [place] [address] 45386- 2748 Oct, [facility] [id number] [place] [address] 99500- 9207 Sep, [facility] [id number] [place] [address] 411842- 9079 Sep, [facility] [id number] [place] [address] 192999- 4409 Aug, [facility] [id number] [place] [address] 56101- 4673 Aug, [facility] [id number] [place] [address] 947942- 7353 Jul, Dry eye, unspecified laterality H04.129 ; Encounter for immunization Z23 ; Sciatica, unspecified laterality M54.30 ; Osteoarthritis of left hand, unspecified osteoarthritis type M19.042 ; High risk medication use Z79.899 ; Insomnia, unspecified type G47.00 and Chronic obstructive pulmonary disease, unspecified COPD type J44.9 [facility] [id number] [place] [address] 62630- 2673 Jul, Shortness of breath R06.02 [place] [id number] [place] [address] 65729- 6467 Jul, [facility] [id number] [place] [address] 60861- 8787 Jun, [facility] [id number] [place] [address] [id number] Jun, [facility] [id number] [place] [address] 08918- 0696 May, [facility] [id number] [place] [address] 36476- 3443 May, [facility] [id number] [place] [address] 31099- 6142 Apr, Insomnia 780.52 ; Chronic pain 338.29 ; Photophobia 368.13 ; Lupus 710.0 and Shortness of breath 786.05 [place] [address] [id number] [place] [address]- 8659 Mar, [facility] [place] [facility] [address] [id number] [place] [address]- 2004 Mar, [facility] [place] [facility] [address] [id number] [place] [address]- 8556 Mar, [facility] [place] [facility] [address] [id number] [place] [address]- 7630 Mar, [facility] [place] [facility] [address] [id number] [place] [address]- 1437 Mar, [facility] [place] [facility] [address] [id number] [place] [address]- 3582 14 Nov, 2014 [facility] [place] [facility] [address] [id number] [place] [address]- 3253 Nov, [facility] [place] [facility] [address] [id number] [place] [address]- 4047 Oct, [facility] [place] [facility] [address] [id number] [place] [address]- 5597 Oct, [facility] [place] [facility] [address] [id number] [place] [address]- 4459 Oct, [facility] [place] [facility] [address] [id number] [place] [address]- 1652 Oct, [facility] [place] [facility] [address] [id number] [place] [address]- 9563 Oct, [facility] [place] [facility] [address] [id number] [place] [address]- 9100 Oct, [facility] [place] [facility] [address] [id number] [place] [address]- 8425 Oct, [facility] [place] [facility] [address] [id number] [place] [address]- 0990 Oct, [facility] [place] [facility] [address] [id number] [place] [address]- 3076 Oct, [facility] [place] [facility] [address] [id number] [place] [address]- 6685 Oct, [facility] [place] [facility] [address] [id number] [place] [address]- 5078 Sep, [facility] [place] [facility] [address] [id number] [place] [address]- 2993 Sep, [facility] [place] [facility] [address] [id number] [place] [address]- 1971 Sep, [facility] [place] [facility] [address] [id number] [place] [address]- 5191 Sep, [facility] [place] [facility] [address] [id number] [place] [address]- 6932 Aug, [facility] [place] [facility] [address] [id number] [place] [address]- 0611 Aug, [facility] [place] [facility] [address] [id number] [place] [address]- 0951 Aug, [facility] [place] [facility] [address] [id number] [place] [address]- 4769 Aug, [facility] [place] [facility] [address] [facility] [id number] [place] [address]- 7251 Jul, [facility] [place] [facility] [address] [id number] [place] [address]- 9084 Jul, [facility] [place] [facility] [address] [id number] [place] [address]- 5181 Jun, [facility] [place] [facility] [address] [id number] [place] [address]- 0769 Jun, [facility] [place] [facility] [address] [id number] [place] [address]- 1675 May, [facility] [place] [facility] [address] [id number] [place] [address]- 1580 May, [facility] [place] [facility] [address] [id number] [place] [address]- 9063 May, [facility] [place] [facility] [address] [id number] [place] [address]- 4434 May, [facility] [place] [facility] [address] [id number] [place] [address]- 4326 May, [facility] [place] [facility] [address] [id number] [place] [address]- 0417 May, [facility] [place] [facility] [address] [id number] [place] [address]- 3107 May, [facility] [place] [facility] [address] [id number] [place] [address]- 9945 May, [facility] [place] [facility] [address] [id number] [place] [address]- 6526 May, [facility] [place] [facility] [address] [id number] [place] [address]- 2294 May, [facility] [place] [facility] [address] [id number] [place] [address]- 4073 Apr, [facility] [place] [facility] [address] [id number] [place] [address]- 2922 Apr, [facility] [place] [facility] [address] [id number] [place] [address]- 9315 Apr, [facility] [place] [facility] [address] [id number] [place] [address]- 5797 Apr, [facility] [place] [facility] [address] [id number] [place] [address]- 8777 Apr, [facility] [place] [facility] [address] [id number] [place] [address]- 3096 Apr, [facility] [place] [facility] [address] [id number] [place] [address]- 5287 Mar, [facility] [place] [facility] [address] [id number] [place] [address]- 4219 Mar, [facility] [place] [facility] [address] [id number] [place] [address]- 4026 Mar, [facility] [place] [facility] [address] [id number] [place] [address]- 7518 Mar, [facility] [place] [facility] [address] [id number] [place] [address]- 5804 Mar, [facility] [place] [facility] [address] [id number] [place] [address]- 3938 Mar, [facility] [place] [facility] [address] [id number] [place] [address]- 1041 Mar, [facility] [place] [facility] [address] [id number] [place] [address]- 2344 Mar, [facility] [place] [facility] [address] [id number] [place] [address]- 0975 Mar, [facility] [place] [facility] [address] [id number] [place] [address]- 1486 Mar, [facility] [place] [facility] [address] [id number] [place] [address]- 2835 Mar, [facility] [place] [facility] [address] [id number] [place] [address]- 5104 Mar, [facility] [place] [facility] [address] [id number] [place] [address]- 6929 Mar, [facility] [place] [facility] [address] [id number] [place] [address]- 7294 Mar, [facility] [place] [facility] [address] [id number] [place] [address]- 5677 Mar, [facility] [place] [facility] [address] [id number] [place] [address]- 0392 Feb, [facility] [place] [facility] [address] [id number] [place] [address]- 8192 Feb, [facility] [place] [facility] [address] [id number] [place] [address]- 0544 Feb, [facility] [place] [facility] [address] [id number] [place] [address]- 9367 Feb, [facility] [place] [facility] [address] [id number] [place] [address]- 3495 Feb, [facility] [place] [facility] [address] [id number] [place] [address]- 1063 Feb, [facility] [place] [facility] [address] [id number] [place] [address]- 2072 Feb, [facility] [place] [facility] [address] [id number] [place] [address]- 7509 Feb, [facility] [place] [facility] [address] [id number] [place] [address]- 4261 Feb, [facility] [place] [facility] [address] [id number] [place] [address]- 9323 Feb, [facility] [place] [facility] [address] [id number] [place] [address]- 4816 Feb, [facility] [place] [facility] [address] [id number] [place] [address]- 4197 Feb, [facility] [place] [facility] [address] [id number] [place] [address]- 3649 Feb, [facility] [place] [facility] [address] [id number] [place] [address]- 3615 Jan, [facility] [place] [facility] [address] [id number] [place] [address]- 5314 Jan, [facility] [place] [facility] [address] [id number] [place] [address]- 2931 Jan, [facility] [place] [facility] [address] [id number] [place] [address]- 4308 Jan, [facility] [place] [facility] [address] [id number] [place] [address]- 5595 December, [facility] [place] [facility] [address] [id number] [place] [address]- 6703 December, [facility] [place] [facility] [address] [id number] [place] [address]- 7213 December, [facility] [place] [facility] [address] [id number] [place] [address]- 0075 December, [facility] [place] [facility] [address] [id number] [place] [address]- 6738 Nov, [facility] [place] [facility] [address] [id number] [place] [address]- 2217 Nov, [facility] [place] [facility] [address] [id number] [place] [address]- 5262 Nov, [facility] [place] [facility] [address] [id number] [place] [address]- 0521 Nov, [facility] [place] [facility] [address] [id number] [place] [address]- 1561 Nov, [facility] [place] [facility] [address] [id number] [place] [address]- 7410 Nov, [facility] [place] [facility] [address] [id number] [place] [address]- 4305 Nov, [facility] [place] [facility] [address] [id number] [place] [address]- 8476 Nov, [facility] [place] [facility] [address] [id number] [place] [address]- 8805 Nov, [facility] [place] [facility] [address] [id number] [place] [address]- 6716 Oct, [facility] [place] [facility] [address] [id number] [place] [address]- 4220 Oct, [facility] [place] [facility] [address] [id number] [place] [address]- 2287 Oct, [facility] [place] [facility] [address] [id number] [place] [address]- 2248 Oct, [facility] [place] [facility] [address] [id number] [place] [address]- 6166 Oct, [facility] [place] [facility] [address] [id number] [place] [address]- 6900 Oct, [facility] [place] [facility] [address] [facility] [id number] [place] [address]- 8009 Oct, [facility] [place] [facility] [address] [id number] [place] [address]- 7349 Oct, [facility] [place] [facility] [address] [id number] [place] [address]- 7130 Sep, [facility] [place] [facility] [address] [id number] [place] [address]- 8926 Sep, [facility] [place] [facility] [address] [facility] [id number] [place] [address]- 9657 Sep, [facility] [place] [facility] [address] [id number] [place] [address]- 3793 Sep, [facility] [place] [facility] [address] [id number] [place] [address]- 5788 Sep, [facility] [place] [facility] [address] [facility] [id number] [place] [address]- 5750 Sep, [facility] [place] [facility] [address] [id number] [place] [address]- 1431 Aug, [facility] [place] [facility] [address] [id number] [place] [address]- 1734 Aug, [facility] [place] [facility] [address] [id number] [place] [address]- 3478 Aug, [facility] [place] [facility] [address] [id number] [place] [address]- 8531 Aug, [facility] [place] [facility] [address] [facility] [id number] [place] [address]- 8585 Aug, [facility] [place] [facility] [address] [id number] [place] [address] 2549 16 Aug, 2013 [facility] [place] [facility] [address] [id number] [place] [address]- 8611 Jul, [facility] [place] [facility] [address] [id number] [place] [address]- 2966 Jul, [facility] [place] [facility] [address] [id number] [place] [address]- 3309 Jul, [facility] [place] [facility] [address] [id number] [place] [address]- 7143 Jul, [facility] [place] [facility] [address] [id number] [place] [address]- 3319 Jul, [facility] [place] [facility] [address] [id number] [place] [address]- 8745 Jul, [facility] [place] [facility] [address] [id number] [place] [address]- 7292 Jul, [facility] [place] [facility] [address] [id number] [place] [address]- 4962 Jul, [facility] [place] [facility] [address] [id number] [place] [address]- 3966 Jun, [facility] [place] [facility] [address] [id number] [place] [address]- 5884 Jun, [facility] [place] [facility] [address] [id number] [place] [address]- 6308 Jun, [facility] [place] [facility] [address] [id number] [place] [address]- 0309 Jun, [facility] [place] [facility] [address] [id number] [place] [address]- 6425 17 Jun, 2013 [facility] [place] [facility] [address] [id number] [place] [address]- 1598 14 Jun, 2013 [facility] [place] [facility] [address] [id number] [place] [address]- 7687 14 Jun, 2013 [facility] [place] [facility] [address] [id number] [place] [address]- 6409 14 Jun, 2013 [facility] [place] [facility] [address] [id number] [place] [address]- 3631 14 Jun, 2013 [facility] [place] [facility] [address] [id number] [place] [address]- 3376 14 Jun, 2013 [facility] [place] [facility] [address] [id number] [place] [address]- 9434 14 Jun, 2013 [facility] [place] [facility] [address] [id number] [place] [address]- 1599 Jun, [facility] [place] [facility] [address] [id number] [place] [address]- 3753 Jun, [facility] [place] [facility] [address] [id number] [place] [address] Jun, [facility] [place] [facility] [address] [id number] [place] [address] 06 Jun, 2013 [facility] [place] [facility] [address] [id number] [place] [address] Jun, [facility] [place] [facility] [address] [id number] [place] [address] Jun, [facility] [place] [facility] [address] [id number] [place] [address] May, [facility] [place] [facility] [address] [id number] [place] [address] May, [facility] [place] [facility] [address] [id number] [place] [address] May, [facility] [place] [facility] [address] [id number] [place] [address] May, [facility] [place] [facility] [address] [id number] [place] [address] May, [facility] [place] [facility] [address] [id number] [place] [address] 23 Apr, 2013 [facility] [address] [id number] [place] [address] 17 Apr, 2013 [facility] [place] [facility] [address] [id number] [place] [address] 12 Apr, 2013 [facility] [address] [id number] [place] [address] Mar, [facility] [place] [facility] [address] [id number] [place] [address] Mar, [facility] [place] [facility] [address] [id number] [place] [address] Feb, [facility] [place] [facility] [address] [id number] [place] [address] Feb, [facility] [address] [id number] [place] [address] Feb, [facility] [place] [facility] [address] [id number] [place] [address] Jan, [facility] [place] [facility] [address] [id number] [place] [address]- [address] Jan, [facility] [place] [facility] [address] [id number] [place] [address] Jan, [facility] [place] [facility] [address] [id number] [place] [address] Jan, [facility] [place] [facility] [address] [id number] [place] [address] 08 Jan, 2013 [facility] [place] [facility] [address] [id number] [place] [address] 07 Jan, 2013 [facility] [place] [facility] [address] [id number] [place] [address]- [address] December, [facility] [place] [facility] [address] [id number] [place] [address]- [address] Nov, [facility] [place] [facility] [address] [id number] [place] [address]- [address] Nov, [facility] [address] [id number] [place] [address] Nov, [facility] [address] [id number] [place] [address] Nov, [facility] [address] [id number] [place] [address]- [address] Nov, [facility] [address] [id number] [place] [address] Oct, [facility] [address] [id number] [place] [address] Oct, [facility] [address] [id number] [place] [address] Sep, [facility] [address] [id number] [place] [address] Sep, [facility] [address] [id number] [place] [address] Sep, [facility] [address] [id number] [place] [address] Sep, [facility] [address] [id number] [place] [address] Sep, [facility] [address] [id number] [place] [address] Aug, [facility] [place] [facility] [address] [id number] [place] [address] Jul, [facility] [place] [facility] [address] [id number] [place] [address]- [address] Jul, [facility] [place] [facility] [address] [id number] [place] [address] 65[address] Jul, [facility] [address] [id number] [place] [address] Jul, [facility] [place] [facility] [address] [id number] [place] [address] Jun, [facility] [place] [facility] [address] [id number] [place] [address] Jun, [facility] [place] [facility] [address] [id number] [place] [address]- [address] Jun, [facility] [place] [facility] [address] [id number] [place] [address]- [address] Jun, [facility] [place] [facility] [address] [id number] [place] [address], [place] [address]- [address] Jun, [facility] [place] [facility] [address] [id number] [place] [address] Jun, [facility] [place] [facility] [address] [facility] [id number] [place] [address] Jun, [facility] [place] [facility] [address] [id number] [place] [address] Jun, [facility] [place] [facility] [address] [id number] [place] [address] May, [facility] [place] [facility] [address] [facility] [id number] [place] [address] May, [facility] [place] [facility] [address] [id number] [place] [address] May, [facility] [place] [facility] [address] [id number] [place] [address] May, [facility] [place] [facility] [address] [id number] [place] [address] May, [facility] [place] [facility] [address] [facility] [id number] [place] [address] May, [facility] [place] [facility] [address] [facility] [id number] [place] [address] May, [facility] [place] [facility] [address] [id number] [place] [address] 17 May, 2012 [facility] [place] [facility] [address] [id number] [place] [address] 27 Apr, 2012 [facility] [place] [facility] [address] [id number] [place] [address] 19 Apr, 2012 [facility] [place] [facility] [address] [id number] [place] [address] 2866 18 Apr, 2012 [facility] [place] [facility] [address] [id number] [place] [address] 27 Mar, 2012 [facility] [place] [facility] [address] [id number] [place] [address] Mar, [facility] [place] [facility] [address] [id number] [place] [address] 31 Feb, 2012 [facility] [place] [facility] [address] [id number] [place] [address] 17 Feb, 2012 [facility] [place] [facility] [address] [id number] [place] [address] 16 Feb, 2012 [facility] [place] [facility] [address] [id number] [place] [address] 0[address] Feb, [facility] [place] [facility] [address] [id number] [place] [address] Jan, [facility] [place] [facility] [address] [id number] [place] [address] December, [facility] [place] [facility] [address] [id number] [place] [address] December, [facility] [place] [facility] [address] [id number] [place] [address] Nov, [facility] [place] [facility] [address] [id number] [place] [address] Oct, [facility] [place] [facility] [address] [id number] [place] [address] Oct, [facility] [address] [id number] [place] [address] Sep, [facility] [id number] [place] [address] Sep, [facility] [id number] [address] Sep, [facility] [id number] [address] Sep, [facility] [id number] [address] Sep, [facility] [id number] [address] Sep, [facility] [address] [id number] [address] Sep, IMMUNIZATIONS No Known Immunizations SOCIAL HISTORY Never Assessed REASON FOR VISIT Requests return call PLAN OF CARE VITAL SIGNS MEDICATIONS Unknown Medications RESULTS No Results PROCEDURES No Known procedures INSTRUCTIONS MEDICATIONS ADMINISTERED No Known Medications MEDICAL (GENERAL) HISTORY Type Description Date Medical History hypertension Medical History lupus Medical History arthritis Medical History H/O pulmonary function tests Medical History COPD Medical History stress test 08/2016 WNL Surgical History x 3 Surgical History ganglian cyst Hospitalization History surgeries
--- OUTSIDE RECORDS SUMMARY | 2018-01-03 07:14 | XMS REPORT ---
Author Author DYLAN SAEED Organization [employer] Address Unknown Phone Unavailable Care Team Providers Care Director Biostatistics Name Role Phone DYLAN SAEED CP Unavailable [...] Problem Insomnia, unspecified type G47.00 Active Medications Medication Code System Code Instructions Start Date End Date Status Dosage Hydroxychloroquine Sulfate [facility] [id number] 200 2 times a day TAKE TWO TABLETS BY MOUTH TWICE A DAY Results No Known Results Summary Purpose [employer] Submission
--- OUTSIDE RECORDS SUMMARY | 2018-01-03 07:14 | XMS REPORT ---
Author Author DYLAN SAEED [facility] [employer] Address Unknown Phone Unavailable Care Team Providers Care Plate Put In Worker Name Role Phone DYLAN SAEED CP [...] other nonspecific skin eruption 782.1 Active Medications Medication Code System Code Instructions Start Date End Date Status Dosage Cyclobenzaprine HCl [facility] [id number] 10 TAKE ONE TABLET BY MOUTH TWICE A DAY NEEDED Results No Known Results Summary Purpose [employer] Submission
--- OUTSIDE RECORDS SUMMARY | 2018-01-03 07:14 | XMS REPORT ---
Author Author DYLAN SAEED [facility] Address [address] [place] [address] Care Team Providers Care Chamber Walker Name Role Phone DYLAN SAEED Unavailable PROBLEMS Type Condition ICD9-CM Code VPU47-HT Code Onset Dates Condition Status SNOMED Code Problem Chronic obstructive pulmonary disease, unspecified COPD type J44.9 Active 00939220 Problem Dysthymia F34.1 Active 32025762 Problem High risk medication use Z79.899 Active 944906342 Problem Other emphysema J43.8 Active 54277640 Problem Primary osteoarthritis of left knee M17.12 Active 464093412 Problem Grief F43.20 Active 48683227 Problem Hidradenitis suppurativa L73.2 Active 54889045 Problem Hyperlipidemia, unspecified hyperlipidemia type E78.5 Active 42682852 Problem GERD without esophagitis K21.9 Active 187437590 Problem Essential hypertension I10 Active 04693516 Problem Nicotine abuse Z72.0 Active 38687122 Problem Lupus M32.9 Active 91731209 Problem Sciatica, unspecified laterality M54.30 Active 64832620 Problem Insomnia, unspecified type G47.00 Active 020377419 Problem Low back pain, unspecified back pain laterality, with sciatica presence unspecified M54.5 Active 141247362 Problem Osteoarthritis of left hand, unspecified osteoarthritis type M19.042 Active 46072645 Problem H/O pulmonary function tests V15.89 Active 736966126 Problem Dry eye, unspecified laterality H04.129 Active [id number] ALLERGIES No Information ENCOUNTERS Encounter Location Date Diagnosis [facility] [address] [facility] [id number], [place] [address] Apr, [facility] [address] [facility] [id number], [place] [address] Mar, Chronic obstructive pulmonary disease, unspecified COPD type J44.9 ; Essential hypertension I10 ; GERD without esophagitis K21.9 ; Hyperlipidemia, unspecified hyperlipidemia type E78.5 ; Lupus M32.9 and Vertigo R[address] [place] [id number] [place] [id number] [place] [address] 53721- 3669 Mar, [place] [id number] [place] [address] 73794- 8059 Feb, [place] [address] [place] [address] 43312- 8143 Feb, Essential hypertension I10 [place] [address] 16443- 2303 Feb, GERD without esophagitis K21.9 [place] [address] [place] [address] 18814- 7639 December, Essential hypertension I10 [place] [id number] [place] [address] 62905- 2973 Nov, Chronic obstructive pulmonary disease, unspecified COPD type J44.9 [place] [address] [place] [address] 71273- 3451 Nov, Chronic obstructive pulmonary disease, unspecified COPD type J44.9 [place] [id number] [place] [address] 45389- 3889 Nov, [place] [address] [place] [address] 22387- 3181 Nov, Essential hypertension I10 ; Lupus M32.9 ; Other emphysema J43.8 and Breast cancer screening Z12.39 [place] [address] [place] [address] 64152- 4442 Oct, GERD without esophagitis K21.9 [place] [address] [place] [address] 61342- 4218 Sep, Chest pain, unspecified type R07.9 ; Shortness of breath R06.02 ; Essential hypertension I10 and Hyperlipidemia, unspecified hyperlipidemia type E78.5 [place] [address] [place] [address] 22918- 1738 Sep, [facility] [address] 8[address]56- 3077 Sep, [facility] [address] [place] [address] 66215- 4447 Aug, [place] [address] 17563- 3082 Aug, [place] [address] [place] [address] 00903- 6850 Jul, GERD without esophagitis K21.9 [place] [address] [place] [place] [address] 67604- 3129 Jun, Systemic lupus erythematosus, unspecified SLE type, unspecified organ involvement status M32.9 [place] [address] 53875- 5935 Jun, Primary osteoarthritis of left knee M17.12 [place] [address] [place] [address] 76355- 3557 May, [place] [address] [place] [address] 94026- 3816 May, Chest pain, unspecified type R07.9 ; Shortness of breath R06.02 ; Essential hypertension I10 and Hyperlipidemia, unspecified hyperlipidemia type E78.5 [place] [address] [place] [place] [address] 26134- 9657 May, Essential hypertension I10 [place] [address] [place] [address] 74852- 2596 Apr, Sciatica, unspecified laterality M54.30 [place] [address] [place] [address] 47067- 9703 Apr, [place] [address] [place] [address] 92202- 4095 Mar, Chronic obstructive pulmonary disease, unspecified COPD type J44.9 [place] [address] [place] [address] 88219- 7500 Mar, Acute pain of left knee M25.562 ; Dysthymia F34.1 ; Lupus M32.9 ; Clumsiness R27.8 and Family history of early CAD Z82.49 [place] [address] 11776- 9263 Mar, Essential hypertension I10 [place] [address] 11252- 5012 Feb, [place] [address] 96044- 3926 Feb, Insomnia, unspecified type G47.00 ; Sciatica, unspecified laterality M54.30 and Low back pain, unspecified back pain laterality, with sciatica presence unspecified M54.5 [place] [address] 30611- 8230 Jan, Hidradenitis suppurativa L73.2 ; Dysthymia F34.1 and Grief F43.20 [place] [address] 06532- 3830 December, [place] [address] 82230- 4946 December, Essential hypertension I10 ; Sciatica, unspecified laterality M54.30 ; GERD without esophagitis K21.9 ; Insomnia, unspecified type G47.00 and Low back pain, unspecified back pain laterality, with sciatica presence unspecified M54.5 [place] [address] 60460- 5703 December, [place] [address] 41811- 4120 Oct, [place] [address] 78803- 3275 Sep, [facility] [address] [place] [address] 33928- 3266 Sep, [facility] [address] [place] [address] 16716- 4836 Aug, [facility] [address] [place] [address] 61754- 3796 Aug, [facility] [address] [place] [address] 06173- 3636 Jul, Dry eye, unspecified laterality H04.129 ; Encounter for immunization Z23 ; Sciatica, unspecified laterality M54.30 ; Osteoarthritis of left hand, unspecified osteoarthritis type M19.042 ; High risk medication use Z79.899 ; Insomnia, unspecified type G47.00 and Chronic obstructive pulmonary disease, unspecified COPD type J44.9 [facility] [address] [place] [address] 26840- 8336 Jul, Shortness of breath R06.02 [facility] [address] [place] [address] 12384- 1056 Jul, [facility] [address] [place] [address] 05767- 8966 Jun, [facility] [address] [place] [id number] [place] [address] [id number] Jun, [facility] [address] [place] [address] 21976- 6376 May, [facility] [address] [place] [address] 34636- 2546 May, [facility] [address] 95889- 2626 Apr, Insomnia 780.52 ; Chronic pain 338.29 ; Photophobia 368.13 ; Lupus 710.0 and Shortness of breath 786.05 [facility] [address] [place] [address] 10418- 1901 Mar, [facility] [place] [facility] [address] [id number] [place] [address]- 6424 Mar, [facility] [place] [facility] [address] [id number] [place] [address]- 1023 Mar, [facility] [place] [facility] [address] [id number] [place] [address]- 3557 Mar, [facility] [place] [facility] [address] [id number] [place] [address]- 4632 Mar, [facility] [place] [facility] [address] [id number] [place] [address]- 6109 Nov, [facility] [place] [facility] [address] [id number] [place] [address]- 0348 Nov, [facility] [place] [facility] [address] [id number] [place] [address]- 3679 Oct, [facility] [place] [facility] [address] [id number] [place] [address]- 3423 Oct, [facility] [place] [facility] [address] [id number] [place] [address]- 9246 Oct, [facility] [place] [facility] [address] [id number] [place] [address]- 5431 Oct, [facility] [place] [facility] [address] [id number] [place] [address]- 0985 Oct, [facility] [place] [facility] [address] [id number] [place] [address]- 5656 Oct, [facility] [place] [facility] [address] [id number] [place] [address]- 8892 Oct, [facility] [place] [facility] [address] [id number] [place] 7326 Oct, [facility] [place] [facility] [address] [id number] [place] [address]- 7943 Oct, [facility] [place] [facility] [address] [id number], [place] [address]- 8966 Oct, [facility] [place] [facility] [address] [id number] [place] [address]- 3821 Sep, [facility] [place] [facility] [address] [id number] [place] [address]- 6796 Sep, [facility] [place] [facility] [address] [facility] [id number] [place] [address]- 6156 Sep, [facility] [place] [facility] [address] [id number] [place] [address]- 1833 Sep, [facility] [place] [facility] [address] [id number] [place] [address]- 8337 Aug, [facility] [place] [facility] [address] [facility] [id number] [place] [address]- 6700 Aug, [facility] [place] [facility] [address] [facility] [id number] [place] [address]- 0219 Aug, [facility] [place] [facility] [address] [facility] [id number] [place] [address]- 8094 Aug, [facility] [place] [facility] [address] [facility] [id number] [place] [address]- 5084 Jul, [facility] [place] [facility] [address] [facility] [id number] [place] [address]- 4293 Jul, [facility] [place] [facility] [address] [facility] [id number] [place] [address]- 2686 Jun, [facility] [place] [facility] [address] [facility] [id number], [place] [address]- 1299 Jun, [facility] [place] [facility] [address] [facility] [id number] [place] [address]- 3493 May, [facility] [place] [facility] [address] [facility] [id number] [place] [address]- 1786 May, [facility] [place] [facility] [address] [facility] [id number][place] 0188 May, [facility] [place] [facility] [address] [id number] [place] [address]- 8882 May, [facility] [place] [facility] [address] [id number] [place] [address]- 4616 May, [facility] [place] [facility] [address] [id number] [place] [address]- 6106 May, [facility] [place] [facility] [address] [id number] [place] [address]- 3864 May, [facility] [place] [facility] [address] [id number] [place] [address]- 4199 May, [facility] [place] [facility] [address] [id number] [place] [address]- 1092 May, [facility] [place] [facility] [address] [id number] [place] [address]- 0070 May, [facility] [place] [facility] [address] [id number] [place] [address]- 8451 Apr, [facility] [place] [facility] [address] [id number] [place] [address]- 7376 Apr, [facility] [place] [facility] [address] [id number] [place] [address]- 0398 Apr, [facility] [place] [facility] [address] [id number] [place] [address]- 3877 Apr, [facility] [place] [facility] [address] [id number] [place] [address]- 4598 Apr, [facility] [place] [facility] [address] [id number] [place] [address]- 3713 Apr, [facility] [place] [facility] [address] [id number] [place] [address]- 5590 Mar, [facility] [place] [facility] [address] [id number] [place] [address]- 0340 Mar, [facility] [place] [facility] [address] [id number] [place] [address]- 2397 Mar, [facility] [place] [facility] [address] [id number] [place] [address]- 4199 Mar, [facility] [place] [facility] [address] [id number] [place] [address]- 5380 Mar, [facility] [place] [facility] [address] [id number] [place] [address]- 1844 Mar, [facility] [place] [facility] [address] [id number] [place] [address]- 3065 Mar, [facility] [place] [facility] [address] [id number] [place] [address]- 1547 Mar, [facility] [place] [facility] [address] [id number] [place] [address]- 2004 Mar, [facility] [place] [facility] [address] [id number] [place] [address]- 5744 Mar, [facility] [place] [facility] [address] [id number] [place] [address]- 6439 Mar, [facility] [place] [facility] [address] [id number] [place] [address]- 0788 Mar, [facility] [place] [facility] [address] [id number] [place] [address]- 0663 Mar, [facility] [place] [facility] [address] [id number] [place] [address]- 9921 Mar, [facility] [place] [facility] [address] [id number] [place] [address]- 1294 Mar, [facility] [place] [facility] [address] [id number] [place] [address]- 2637 Feb, [facility] [place] [facility] [address] [id number] [place] [address]- 4090 Feb, [facility] [place] [facility] [address] [id number] [place] [address]- 9404 Feb, [facility] [place] [facility] [address] [id number] [place] [address]- 9258 Feb, [facility] [place] [facility] [address] [id number] [place] [address]- 9333 Feb, [facility] [place] [facility] [address] [id number] [place] [address]- 0934 Feb, [facility] [place] [facility] [address] [id number] [place] [address]- 6260 Feb, [facility] [place] [facility] [address] [id number] [place] [address]- 0991 Feb, [facility] [place] [facility] [address] [id number] [place] [address]- 4224 Feb, [facility] [place] [facility] [address] [id number] [place] [address]- 6947 Feb, [facility] [place] [facility] [address] [id number] [place] [address]- 6902 Feb, [facility] [place] [facility] [address] [id number] [place] [address]- 9290 Feb, [facility] [place] [facility] [address] [id number] [place] [address]- 3122 Feb, [facility] [place] [facility] [address] [id number] [place] [address]- 8278 Jan, [facility] [place] [facility] [address] [id number] [place] [address]- 7013 Jan, [facility] [place] [facility] [address] [id number] [place] [address]- 6724 Jan, [facility] [place] [facility] [address] [id number] [place] [address]- 6710 Jan, [facility] [place] [facility] [address] [id number] [place] [address]- 0466 December, [facility] [place] [facility] [address] [id number] [place] [address]- 1838 December, [facility] [place] [facility] [address] [id number] [place] [address]- 3150 December, [facility] [place] [facility] [address] [id number] [place] [address]- 9622 December, [facility] [place] [facility] [address] [id number] [place] [address]- 3005 Nov, [facility] [place] [facility] [address] [id number] [place] [address]- 3336 Nov, [facility] [place] [facility] [address] [id number] [place] [address]- 8956 Nov, [facility] [place] [facility] [address] [id number] [place] [address]- 0352 Nov, [facility] [place] [facility] [address] [id number] [place] [address]- 6301 Nov, [facility] [place] [facility] [address] [id number] [place] [address]- 5385 Nov, [facility] [place] [facility] [address] [id number] [place] [address]- 2733 Nov, [facility] [place] [facility] [address] [id number] [place] [address]- 0026 Nov, [facility] [place] [facility] [address] [id number] [place] [address]- 5453 Nov, [facility] [place] [facility] [address] [id number] [place] [address]- 3069 Oct, [facility] [place] [facility] [address] [id number] [place] [address]- 8846 Oct, [facility] [place] [facility] [address] [id number] [place] [address]- 4765 Oct, [facility] [place] [facility] [address] [id number] [place] 4487 Oct, [facility] [place] [facility] [address] [id number] [place] [address]- 0603 Oct, [facility] [place] [facility] [address] [id number] [place] [address]- 4512 Oct, [facility] [place] [facility] [address] [id number] [place] [address]- 3342 Oct, [facility] [place] [facility] [address] [id number] [place] [address]- 6780 Oct, [facility] [place] [facility] [address] [id number] [place] [address]- 0367 Sep, [facility] [place] [facility] [address] [id number] [place] [address]- 3595 Sep, [facility] [place] [facility] [address] [id number] [place] [address]- 4033 Sep, [facility] [place] [facility] [address] [id number] [place] [address]- 5452 Sep, [facility] [place] [facility] [address] [id number] [place] [address]- 8248 Sep, [facility] [place] [facility] [address] [id number] [place] [address]- 2136 Sep, [facility] [place] [facility] [address] [id number] [place] [address]- 6626 Aug, [facility] [place] [facility] [address] [id number] [place] [address]- 3616 Aug, [facility] [place] [facility] [address] [id number] [place] [address]- 5697 Aug, [facility] [place] [facility] [address] [id number] [place] [address]- 8821 Aug, [facility] [place] [facility] [address] [id number] [place] [address]- 3701 Aug, [facility] [place] [facility] [address] [id number] [place] [address]- 8658 Aug, [facility] [place] [facility] [address] [id number] [place] [address]- 1376 Jul, [facility] [address] [id number] [place] [address]- 6118 Jul, [facility] [address] [id number] [place] [address]- 0056 Jul, [facility] [address] [id number] [place] [address]- 3571 Jul, [facility] [address] [id number] [place] [address]- 2788 Jul, [facility] [address] [id number] [place] [address]- 4968 Jul, [facility] [address] [id number] [place] [address]- 7213 Jul, [facility] [address] [id number] [place] [address]- 3360 Jul, [facility] [address] [id number] [place] [address] Jun, [facility] [address] [id number] [place] [address] Jun, [facility] [address] [id number] [place] [address] Jun, [facility] [address] [id number] [place] [address] Jun, [facility] [place] [facility] [address] [id number] [place] [address] 17 Jun, 2013 [facility] [place] [facility] [address] [id number] [place] [address] 14 Jun, 2013 [facility] [place] [facility] [address] [id number] [place] [address] 14 Jun, 2013 [facility] [place] [facility] [address] [id number] [place] [address] 14 Jun, 2013 [facility] [place] [facility] [address] [id number] [place] [address] 14 Jun, 2013 [facility] [place] [facility] [address] [id number] [place] [address] 14 Jun, 2013 [facility] [place] [facility] [address] [id number] [place] [address] 14 Jun, 2013 [facility] [place] [facility] [address] [id number], [place] [address] Jun, [facility] [place] [facility] [address] [id number] [place] [address] Jun, [facility] [place] [facility] [address] [id number] [place] [address] 06 Jun, 2013 [facility] [place] [facility] [address] [id number], [place] [address] Jun, [facility] [place] [facility] [address] [id number], [place] [address] Jun, [facility] [place] [facility] [address] [id number], [place] [address] Jun, [facility] [place] [facility] [address] [id number], [place] [address] May, [facility] [place] [facility] [address] [id number], [place] [address] May, [facility] [place] [facility] [address] [id number], [place] [address] 15 May, 2013 [facility] [place] [facility] [address] [id number], [place] [address] 15 May, 2013 [facility] [place] [facility] [address] [id number], [place] [address] May, [facility] [place] [facility] [address] [id number], [place] [address] Apr, [facility] [place] [facility] [address] [id number] [place] [address] 17 Apr, 2013 [facility] [address] [id number] [place] [address] Apr, [facility] [address] [id number] [place] [address] Mar, [facility] [address] [id number] [place] [address] Mar, [facility] [address] [id number] [place] [address] Feb, [facility] [address] [id number] [place] [address] Feb, [facility] [address] [id number] [place] [address] Feb, [facility] [address] [id number] [place] [address] Jan, [facility] [address] [id number] [place] [address] Jan, [facility] [address] [id number] [place] [address] Jan, [facility] [address] [id number] [place] [address] Jan, [facility] [address] [id number] [place] [address] Jan, [facility] [address] [id number] [place] [address] Jan, [facility] [place] [facility] [address] [id number] [place] [address] December, [facility] [place] [facility] [address] [id number] [place] [address] Nov, [facility] [address] [id number] [place] [address] Nov, [facility] [address] [id number] [place] [address] Nov, [facility] [address] [id number] [place] [address] Nov, [facility] [address] [id number] [place] [address] Nov, [facility] [address] [id number] [place] [address] Oct, [facility] [address] [id number] [place] [address] Oct, [facility] [address] [id number] [place] [address] Sep, [facility] [address] [id number] [place] [address] Sep, [facility] [address] [id number] [place] [address] Sep, [facility] [address] [id number] [place] [address] Sep, [facility] [address] [id number] [place] [address] Sep, [facility] [address] [id number] [place] [address] Aug, [facility] [facility] [address] [id number] [place] [address] Jul, [facility] [place] [facility] [address] [id number] [place] [address] Jul, [facility] [place] [facility] [address] [id number] [place] [address] Jul, [facility] [place] [facility] [address] [id number] [place] [address] Jul, [facility] [address] [id number] [place] [address] Jun, [facility] [place] [facility] [address] [id number] [place] [address] Jun, [facility] [place] [facility] [address] [id number] [place] [address] Jun, [facility] [place] [address] [id number] [place] [address] Jun, [facility] [place] [facility] [address] [id number] [place] [address] Jun, [facility] [place] [facility] [address] [id number] [place] [address] Jun, [facility] [facility] [address] [id number] [place] [address] Jun, [facility] [place] [facility] [address] [id number] [place] [address] Jun, [facility] [place] [facility] [address] [id number] [place] [address] May, [facility] [facility] [address] [id number] [place] [address] May, [facility] [facility] [address] [facility] [id number] [place] [address] May, [facility] [address] [id number] [place] [address] May, [facility] [address] [id number] [place] [address] May, [facility] [place] [facility] [address] [id number] [place] [address] May, [facility] [address] [facility] [id number] [place] [address] May, [facility] [place] [facility] [address] [id number] [place] [address] May, [facility] [place] [facility] [address] [id number] [place] [address] 27 Apr, 2012 [facility] [facility] [address] [id number] [place] [address] 19 Apr, 2012 [facility] [facility] [address] [id number] [place] [address] 18 Apr, 2012 [facility] [address] [id number] [place] [address] 27 Mar, 2012 [facility] [address] [id number] [place] [address]- [address] 13 Mar, 2012 [facility] [facility] [address] [id number] [place] [address] 31 Feb, 2012 [facility] [address] [id number] [place] [address] 17 Feb, 2012 [facility] [address] [id number] [place] [address]- [address] 16 Feb, 2012 [facility] [address] [id number] [place] [address] Feb, [facility] [address] [id number] [place] [address] Jan, [facility] [address] [id number] [place] [address] December, [facility] [address] [id number] [place] [address] December, [facility] [address] [id number] [place] [address] Nov, [facility] [address] [id number] [place] [address] Oct, [facility] [address] [id number] [place] [address] Oct, [facility] [address] [id number], [place] [address] Sep, [facility] [address] [id number], [place] [address] Sep, [facility] [id number], [place] [address] Sep, [facility] [id number], [place] [address] Sep, [facility] [id number], [place] [address] Sep, [facility] [id number], [place] [address] Sep, [facility] [id number], [place] [address] Sep, IMMUNIZATIONS No Known Immunizations SOCIAL HISTORY Never Assessed REASON FOR VISIT Refill request PLAN OF CARE VITAL SIGNS MEDICATIONS Medication [...]
--- OUTSIDE RECORDS SUMMARY | 2018-01-03 07:15 | XMS REPORT ---
Author Author DYLAN SAEED [facility] Address [address] [place] [address] Care Team Providers Care Skip Loader Name Role Phone DYLAN SAEED Unavailable PROBLEMS Type Condition ICD9-CM Code FPB50-LD Code Onset Dates Condition Status SNOMED Code Problem Chronic obstructive pulmonary disease, unspecified COPD type J44.9 Active 28839321 Problem Dysthymia F34.1 Active 63702430 Problem High risk medication use Z79.899 Active 934325669 Problem Other emphysema J43.8 Active 32250159 Problem Primary osteoarthritis of left knee M17.12 Active 485256760 Problem Grief F43.20 Active 10950718 Problem Hidradenitis suppurativa L73.2 Active 51337126 Problem Hyperlipidemia, unspecified hyperlipidemia type E78.5 Active 59569995 Problem GERD without esophagitis K21.9 Active 547595431 Problem Essential hypertension I10 Active 05690745 Problem Nicotine abuse Z72.0 Active 45117000 Problem Lupus M32.9 Active 02935526 Problem Sciatica, unspecified laterality M54.30 Active 38591062 Problem Insomnia, unspecified type G47.00 Active 180523120 Problem Low back pain, unspecified back pain laterality, with sciatica presence unspecified M54.5 Active 267744756 Problem Osteoarthritis of left hand, unspecified osteoarthritis type M19.042 Active 23727932 Problem H/O pulmonary function tests V15.89 Active 720562646 Problem Dry eye, unspecified laterality H04.129 Active 907869840 ALLERGIES No Known Allergies ENCOUNTERS Encounter Location Date Diagnosis [facility] [address] [facility] [id number], [place] [address] Apr, [facility] [address] [facility] [id number], [place] [address] Mar, Chronic obstructive pulmonary disease, unspecified COPD type J44.9 ; Essential hypertension I10 ; GERD without esophagitis K21.9 ; Hyperlipidemia, unspecified hyperlipidemia type E78.5 ; Lupus M32.9 and Vertigo R[address] [place] [id number] [place] [address] 27333- 5941 Mar, [facility] [id number] [place] [address] 76512- 7648 Feb, [place] [id number] [place] [address] 35015- 3873 Feb, Essential hypertension I10 [place] [id number] [place] [address] 27965- 1231 Feb, GERD without esophagitis K21.9 [place] [id number] [place] [address] 16020- 3899 December, Essential hypertension I10 [place] [id number] [place] [address] 39349- 0223 Nov, Chronic obstructive pulmonary disease, unspecified COPD type J44.9 [place] [id number] [place] [address] 03357- 9881 Nov, Chronic obstructive pulmonary disease, unspecified COPD type J44.9 [place] [id number] [place] [address] 02551- 5270 Nov, [place] [id number] [place] [address] 33410- 6440 Nov, Essential hypertension I10 ; Lupus M32.9 ; Other emphysema J43.8 and Breast cancer screening Z12.39 [place] [id number] [place] [address] 45454- 8436 Oct, GERD without esophagitis K21.9 [place] [id number] [place] [address] 07169- 7290 Sep, Chest pain, unspecified type R07.9 ; Shortness of breath R06.02 ; Essential hypertension I10 and Hyperlipidemia, unspecified hyperlipidemia type E78.5 [facility] [id number] [place] [address] 64547- 8271 Sep, [facility] [id number] [place] [address] 45417- 2011 Sep, [facility] [id number] [place] [address] 36727- 3849 Aug, [facility] [id number] [place] [address] 54328- 6178 Aug, [facility] [id number] [place] [address] 91534- 0867 Jul, GERD without esophagitis K21.9 [place] [id number] [place] [address] 76196- 3333 Jun, Systemic lupus erythematosus, unspecified SLE type, unspecified organ involvement status M32.9 [place] [id number] [place] [address] 00150- 3664 Jun, Primary osteoarthritis of left knee M17.12 [place] [id number] [place] [address] 56153- 4403 May, [place] [id number] [place] [address] 99035- 8903 May, Chest pain, unspecified type R07.9 ; Shortness of breath R06.02 ; Essential hypertension I10 and Hyperlipidemia, unspecified hyperlipidemia type E78.5 [place] [id number] [place] [address] 61176- 9176 May, Essential hypertension I10 [place] [id number] [place] [address] 57236- 7364 Apr, Sciatica, unspecified laterality M54.30 [facility] [id number] [place] [address] 57710- 5493 Apr, [place] [id number] [place] [address] 21407- 4493 Mar, Chronic obstructive pulmonary disease, unspecified COPD type J44.9 [place] [address] 58131- 1245 Mar, Acute pain of left knee M25.562 ; Dysthymia F34.1 ; Lupus M32.9 ; Clumsiness R27.8 and Family history of early CAD Z82.49 [place] [address] 17075- 4405 Mar, Essential hypertension I10 [place] [address] 67845- 0370 Feb, [place] [address] 28409- 9429 Feb, Insomnia, unspecified type G47.00 ; Sciatica, unspecified laterality M54.30 and Low back pain, unspecified back pain laterality, with sciatica presence unspecified M54.5 [place] [address] 36748- 9600 Jan, Hidradenitis suppurativa L73.2 ; Dysthymia F34.1 and Grief F43.20 [place] [address] 75474- 0638 December, [place] [address] 24229- 4096 December, Essential hypertension I10 ; Sciatica, unspecified laterality M54.30 ; GERD without esophagitis K21.9 ; Insomnia, unspecified type G47.00 and Low back pain, unspecified back pain laterality, with sciatica presence unspecified M54.5 [place] [address] 58324- 5724 December, [place] [address] 07569- 3829 Oct, [place] [address] 55255- 7005 Sep, [facility] [id number] [place] [address] 23056- 6496 Sep, [facility] [id number] [place] [address] 53867- 1036 Aug, [facility] [id number] [place] [address] 54266- 1026 Aug, [facility] [id number] [place] [address] 27607- 2836 Jul, Dry eye, unspecified laterality H04.129 ; Encounter for immunization Z23 ; Sciatica, unspecified laterality M54.30 ; Osteoarthritis of left hand, unspecified osteoarthritis type M19.042 ; High risk medication use Z79.899 ; Insomnia, unspecified type G47.00 and Chronic obstructive pulmonary disease, unspecified COPD type J44.9 [facility] [id number] [place] [address] 23405- 1796 Jul, Shortness of breath R06.02 [facility] [id number] [place] [address] 52743- 5646 Jul, [facility] [id number] [place] [address] 18865- 8465 Jun, [facility] [id number] [place] [address] [id number] Jun, [facility] [id number] [place] [address] 28036- 4816 May, [facility] [id number] [place] [address] 03927- 8326 May, [facility] [address] 04951- 0764 Apr, Insomnia 780.52 ; Chronic pain 338.29 ; Photophobia 368.13 ; Lupus 710.0 and Shortness of breath 786.05 [facility] [id number] [place] [address] 51057- 3881 Mar, [facility] [place] [facility] [address] [id number] [place] [address]- 2923 Mar, [facility] [place] [facility] [address] [id number] [place] [address]- 6944 Mar, [facility] [place] [facility] [address] [id number] [place] [address]- 7153 Mar, [facility] [place] [facility] [address] [id number] [place] [address]- 9785 Mar, [facility] [place] [facility] [address] [id number] [place] [address]- 8978 Nov, [facility] [place] [facility] [address] [id number] [place] [address]- 0537 Nov, [facility] [place] [facility] [address] [id number] [place] [address]- 2273 Oct, [facility] [place] [facility] [address] [id number] [place] [address]- 8269 Oct, [facility] [place] [facility] [address] [id number] [place] [address]- 4000 Oct, [facility] [place] [facility] [address] [id number] [place] [address]- 1624 Oct, [facility] [place] [facility] [address] [id number] [place] [address]- 6763 Oct, [facility] [place] [facility] [address] [id number] [place] [address]- 2097 Oct, [facility] [place] [facility] [address] [id number] [place] [address]- 2762 Oct, [facility] [place] [facility] [address] [id number] [place] [address]- 0039 Oct, [facility] [place] [facility] [address] [id number] [place] [address]- 0117 Oct, [facility] [place] [facility] [address] [id number], [place] [address]- 3364 Oct, [facility] [place] [facility] [address] [id number] [place] [address]- 5658 Sep, [facility] [place] [facility] [address] [id number] [place] [address]- 4582 Sep, [facility] [place] [facility] [address] [id number] [place] [address]- 8817 Sep, [facility] [place] [facility] [address] [id number] [place] [address]- 4595 Sep, [facility] [place] [facility] [address] [id number] [place] [address]- 9856 Aug, [facility] [place] [facility] [address] [id number] [place] [address]- 3922 Aug, [facility] [place] [facility] [address] [facility] [id number] [place] [address]- 2597 Aug, [facility] [place] [facility] [address] [facility] [id number] [place] [address]- 1705 Aug, [facility] [place] [facility] [address] [facility] [id number] [place] [address]- 0934 Jul, [facility] [place] [facility] [address] [facility] [id number] [place] [address]- 3280 Jul, [facility] [place] [facility] [address] [facility] [id number] [place] [address]- 8589 Jun, [facility] [place] [facility] [address] [id number] [place] [address]- 7846 Jun, [facility] [place] [facility] [address] [id number] [place] [address]- 8721 May, [facility] [place] [facility] [address] [id number] [place] [address]- 0513 May, [facility] [place] [facility] [address] [id number] [place] 8034 May, [facility] [place] [facility] [address] [id number] [place] [address]- 4125 May, [facility] [place] [facility] [address] [id number] [place] [address]- 9154 May, [facility] [place] [facility] [address] [id number] [place] [address]- 9785 May, [facility] [place] [facility] [address] [id number] [place] [address]- 7474 May, [facility] [place] [facility] [address] [id number] [place] [address]- 9828 May, [facility] [place] [facility] [address] [id number] [place] [address]- 2258 May, [facility] [place] [facility] [address] [id number] [place] [address]- 6912 May, [facility] [place] [facility] [address] [id number] [place] [address]- 4603 Apr, [facility] [place] [facility] [address] [id number] [place] [address]- 4307 Apr, [facility] [place] [facility] [address] [id number] [place] [address]- 7034 Apr, [facility] [place] [facility] [address] [id number] [place] [address]- 2085 Apr, [facility] [place] [facility] [address] [id number] [place] [address]- 0458 Apr, [facility] [place] [facility] [address] [id number] [place] [address]- 0576 Apr, [facility] [place] [facility] [address] [id number] [place] [address]- 2437 Mar, [facility] [place] [facility] [address] [id number] [place] [address]- 7349 Mar, [facility] [place] [facility] [address] [id number] [place] [address]- 2365 Mar, [facility] [place] [facility] [address] [id number] [place] [address]- 0091 Mar, [facility] [place] [facility] [address] [id number] [place] [address]- 1099 Mar, [facility] [place] [facility] [address] [id number] [place] [address]- 5940 Mar, [facility] [place] [facility] [address] [id number] [place] [address]- 8759 Mar, [facility] [place] [facility] [address] [id number] [place] [address]- 3756 Mar, [facility] [place] [facility] [address] [id number] [place] [address]- 8359 Mar, [facility] [place] [facility] [address] [id number] [place] [address]- 6798 Mar, [facility] [place] [facility] [address] [id number] [place] [address]- 4032 Mar, [facility] [place] [facility] [address] [id number] [place] [address]- 1731 Mar, [facility] [place] [facility] [address] [id number] [place] [address]- 9469 Mar, [facility] [place] [facility] [address] [id number] [place] [address]- 2415 Mar, [facility] [place] [facility] [address] [id number] [place] [address]- 9427 Mar, [facility] [place] [facility] [address] [id number] [place] [address]- 6235 Feb, [facility] [place] [facility] [address] [id number] [place] [address]- 1550 Feb, [facility] [place] [facility] [address] [id number] [place] [address]- 2488 Feb, [facility] [place] [facility] [address] [id number] [place] [address]- 6761 Feb, [facility] [place] [facility] [address] [id number] [place] [address]- 0068 Feb, [facility] [place] [facility] [address] [id number] [place] [address]- 7718 Feb, [facility] [place] [facility] [address] [id number] [place] [address]- 8951 Feb, [facility] [place] [facility] [address] [id number] [place] [address]- 7796 Feb, [facility] [place] [facility] [address] [id number] [place] [address]- 3551 Feb, [facility] [place] [facility] [address] [id number] [place] [address]- 8981 Feb, [facility] [place] [facility] [address] [id number] [place] [address]- 3336 Feb, [facility] [place] [facility] [address] [id number] [place] [address]- 0720 Feb, [facility] [place] [facility] [address] [id number] [place] [address]- 9147 Feb, [facility] [place] [facility] [address] [id number] [place] [address]- 7201 Jan, [facility] [place] [facility] [address] [id number] [place] [address]- 0262 Jan, [facility] [place] [facility] [address] [id number] [place] [address]- 6476 Jan, [facility] [place] [facility] [address] [id number] [place] [address]- 4490 Jan, [facility] [place] [facility] [address] [id number] [place] [address]- 0473 December, [facility] [place] [facility] [address] [id number] [place] [address]- 0183 December, [facility] [place] [facility] [address] [id number] [place] [address]- 1690 December, [facility] [place] [facility] [address] [id number] [place] [address]- 7560 December, [facility] [place] [facility] [address] [id number] [place] [address]- 2885 Nov, [facility] [place] [facility] [address] [id number] [place] [address]- 2291 Nov, [facility] [place] [facility] [address] [id number] [place] [address]- 1821 Nov, [facility] [place] [facility] [address] [id number] [place] [address]- 5684 Nov, [facility] [place] [facility] [address] [id number] [place] [address]- 8620 Nov, [facility] [place] [facility] [address] [id number] [place] [address]- 4319 Nov, [facility] [place] [facility] [address] [id number] [place] [address]- 4169 Nov, [facility] [place] [facility] [address] [id number] [place] [address]- 8365 Nov, [facility] [place] [facility] [address] [id number] [place] [address]- 1539 Nov, [facility] [place] [facility] [address] [id number] [place] [address]- 8577 Oct, [facility] [place] [facility] [address] [id number] [place] [address]- 9414 Oct, [facility] [place] [facility] [address] [id number] [place] [address]- 2245 Oct, [facility] [place] [facility] [address] [id number] [place] [address]- 5047 Oct, [facility] [place] [facility] [address] [id number] [place] [address]- 2814 Oct, [facility] [place] [facility] [address] [id number] [place] [address]- 5052 Oct, [facility] [place] [facility] [address] [id number] [place] 9545 Oct, [facility] [place] [facility] [address] [id number] [place] [address]- 3308 Oct, [facility] [place] [facility] [address] [id number] [place] [address]- 5443 Sep, [facility] [place] [facility] [address] [id number] [place] [address]- 1905 Sep, [facility] [place] [facility] [address] [id number] [place] [address]- 5471 Sep, [facility] [place] [facility] [address] [id number] [place] [address]- 3837 Sep, [facility] [place] [facility] [address] [id number] [place] [address]- 3477 Sep, [facility] [place] [facility] [address] [id number] [place] [address]- 9506 Sep, [facility] [place] [facility] [address] [id number] [place] [address]- 3996 Aug, [facility] [place] [facility] [address] [id number] [place] [address]- 9201 Aug, [facility] [place] [facility] [address] [id number] [place] [address]- 1684 Aug, [facility] [place] [facility] [address] [id number] [place] [address]- 0477 Aug, [facility] [place] [facility] [address] [id number] [place] [address]- 6087 Aug, [facility] [place] [facility] [address] [id number] [place] [address]- 2409 Aug, [facility] [place] [facility] [address] [id number] [place] [address]- 3825 Jul, [facility] [address] [id number] [place] [address]- 5695 Jul, [facility] [address] [id number] [place] [address]- 3301 Jul, [facility] [address] [id number] [place] [address]- 4110 Jul, [facility] [address] [id number] [place] [address]- 6761 Jul, [facility] [address] [id number] [place] [address]- 7503 Jul, [facility] [address] [id number] [place] [address]- 1860 Jul, [facility] [address] [id number] [place] [address]- 5639 Jul, [facility] [address] [id number] [place] [address]- 8417 Jun, [facility] [address] [id number] [place] [address]- 2005 Jun, [facility] [address] [id number] [place] [address]- 3633 Jun, [facility] [address] [id number] [place] [address] Jun, [facility] [place] [facility] [address] [id number] [place] [address] 17 Jun, 2013 [facility] [place] [facility] [address] [id number] [place] [address] 14 Jun, 2013 [facility] [place] [facility] [address] [id number] [place] [address] 14 Jun, 2013 [facility] [place] [facility] [address] [id number], [place] [address] 14 Jun, 2013 [facility] [place] [facility] [address] [id number] [place] [address] 14 Jun, 2013 [facility] [place] [facility] [address] [id number], [place] [address] 14 Jun, 2013 [facility] [place] [facility] [address] [id number] [place] [address] 14 Jun, 2013 [facility] [place] [facility] [address] [id number], [place] [address] Jun, [facility] [place] [facility] [address] [id number] [place] [address] Jun, [facility] [place] [facility] [address] [id number] [place] [address] Jun, [facility] [place] [facility] [address] [id number], [place] [address] Jun, [facility] [place] [facility] [address] [id number], [place] [address] Jun, [facility] [place] [facility] [address] [id number], [place] [address] Jun, [facility] [place] [facility] [address] [id number], [place] [address] May, [facility] [place] [facility] [address] [id number], [place] [address] May, [facility] [place] [facility] [address] [id number], [place] [address] 15 May, 2013 [facility] [place] [facility] [address] [id number], [place] [address] May, [facility] [place] [facility] [address] [id number], [place] [address] May, [facility] [place] [facility] [address] [id number], [place] [address] Apr, [facility] [place] [facility] [address] [id number] [place] [address] 17 Apr, 2013 [facility] [address] [id number] [place] [address] Apr, [facility] [address] [id number] [place] [address] Mar, [facility] [address] [id number] [place] [address] Mar, [facility] [address] [id number] [place] [address] Feb, [facility] [address] [id number] [place] [address] Feb, [facility] [address] [id number] [place] [address] Feb, [facility] [address] [id number] [place] [address] Jan, [facility] [address] [id number] [place] [address] Jan, [facility] [address] [id number] [place] [address] Jan, [facility] [address] [id number] [place] [address] Jan, [facility] [address] [id number] [place] [address] Jan, [facility] [address] [id number] [place] [address] Jan, [facility] [place] [facility] [address] [id number] [place] [address] December, [facility] [address] [id number] [place] [address] Nov, [facility] [address] [id number] [place] [address] Nov, [facility] [address] [id number] [place] [address] Nov, [facility] [place] [facility] [address] [id number] [place] [address] Nov, [facility] [address] [id number] [place] [address] Nov, [facility] [place] [facility] [address] [id number] [place] [address] Oct, [facility] [address] [id number] [place] [address] Oct, [facility] [place] [facility] [address] [id number] [place] [address] Sep, [facility] [address] [id number] [place] [address] Sep, [facility] [address] [id number] [place] [address] Sep, [facility] [address] [id number] [place] [address] Sep, [facility] [address] [id number] [place] [address] Sep, [facility] [address] [id number] [place] [address] Aug, [facility] [place] [facility] [address] [id number] [place] [address] Jul, [facility] [place] [facility] [address] [id number] [place] [address] Jul, [facility] [place] [facility] [address] [id number] [place] [address] Jul, [facility] [place] [facility] [address] [id number] [place] [address] Jul, [facility] [place] [facility] [address] [id number] [place] [address] Jun, [facility] [place] [facility] [address] [id number] [place] [address] Jun, [facility] [place] [facility] [address] [id number] [place] [address] Jun, [facility] [place] [facility] [address] [id number] [place] [address] Jun, [facility] [place] [facility] [address] [id number] [place] [address] Jun, [facility] [place] [facility] [address] [id number] [place] [address], [place] [address] Jun, [facility] [place] [facility] [address] [id number] [place] [address] Jun, [facility] [place] [facility] [address] [id number] [place] [address] Jun, [facility] [place] [facility] [address] [id number] [place] [address] May, [facility] [place] [facility] [address] [id number] [place] [address] May, [facility] [place] [facility] [address] [facility] [id number] [place] [address] May, [facility] [place] [facility] [address] [id number] [place] [address] May, [facility] [place] [facility] [address] [id number], [place] [address] May, [facility] [place] [facility] [address] [id number] [place] [address] May, [facility] [place] [facility] [address] [facility] [id number] [place] [address] May, [facility] [place] [facility] [address] [id number] [place] [address] May, [facility] [place] [facility] [address] [id number] [place] [address] 27 Apr, 2012 [facility] [place] [facility] [address] [id number] [place] [address] 19 Apr, 2012 [facility] [place] [facility] [address] [id number] [place] [address] 18 Apr, 2012 [facility] [place] [facility] [address] [id number] [place] [address] 27 Mar, 2012 [facility] [place] [facility] [address] [id number] [place] [address] 13 Mar, 2012 [facility] [place] [facility] [address] [id number] [place] [address] 31 Feb, 2012 [facility] [place] [facility] [address] [id number] [place] [address] 17 Feb, 2012 [facility] [place] [facility] [address] [id number] [place] [address] 16 Feb, 2012 [facility] [place] [facility] [address] [id number] [place] [address] Feb, [facility] [place] [facility] [address] [id number] [place] [address] Jan, [facility] [place] [facility] [address] [id number] [place] [address] December, [facility] [place] [facility] [address] [id number] [place] [address] December, [facility] [place] [facility] [address] [id number] [place] [address] Nov, [facility] [place] [facility] [address] [id number] [place] [address] Oct, [facility] [place] [facility] [address] [id number] [place] [address] Oct, [facility] [place] [facility] [address] [id number], [place] [address] Sep, [facility] [address] [id number], [place] [address] Sep, [facility] [address], [place] [address] Sep, [facility] [address], [place] [address] Sep, [facility] [address], [place] [address] Sep, [facility] [address], [place] [address] Sep, [facility] [address], [place] [address] Sep, IMMUNIZATIONS No Known Immunizations SOCIAL HISTORY Never Assessed REASON FOR VISIT Blood Pressure, 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 by inhalation route with activity 2L via nasal canula Active Symbicort 160-4.5 MCG/ACT Inhalation Twice a day 1 puff 12h 17 Jul, 2015 Active Albuterol Sulfate HFA 108 (90 Base) MCG/ACT Inhalation every 4 hrs 2 puffs as needed 4h Active Albuterol Sulfate (2.5 MG/3ML) 0.083% Inhalation 2 times a day 3 ml 12h Active Spiriva HandiHaler 18 MCG Inhalation Once a day 1 capsule (2 puffs per capsule) 24h 90 days Active C-PAP Machine Active Neurontin 600 MG Orally Three times a day 1 capsule 8h Apr, 30 days Active Tylenol 325 MG Orally every 6 hrs 2 tablets as needed 6h Active Zestril 30 MG Orally Once a day 2 tablets 24h 30 days Active Hydrochlorothiazide 25 MG Orally Once a day 1 tablet in the morning 24h Nov, 90 days Active Triamcinolone Acetonide 0.1 % 1 Ointment by Topical route 2 times per day PRN apply thin layer to affected area BID 60 grams 12h 23 Feb, 2014 Active Cyclobenzaprine HCl 10 MG Orally Three times a day 1 tablet as needed 8h 30 Active Doxycycline Hyclate 100 mg Orally every 12 hrs 1 capsule 12h 07 Jan, 2016 30 days Active Multivitamin Active Ranitidine HCl 150 MG Orally 2 times a day 1 tablet 12h 90 days Active Ibuprofen 200 mg Orally every 12 hrs 4 tablet as needed 12h Active Trazodone HCl 100 MG Orally at bedtime and 0.5 Tablet at noon 1 tablet 30 days Active RESULTS No Results PROCEDURES Procedure Date Ordered Result Body Site COMPREHEN METABOLIC PANEL Apr 17, 2017 LIPID PANEL Apr 17, 2017 INSTRUCTIONS MEDICATIONS ADMINISTERED No Known Medications MEDICAL (GENERAL) HISTORY Type Description Date Medical History hypertension Medical History lupus Medical History arthritis Medical History H/O pulmonary function tests Medical History COPD Medical History stress test 08/2016 WNL Surgical History x 3 Surgical History ganglian cyst Hospitalization History surgeries
--- OUTSIDE RECORDS SUMMARY | 2018-01-03 07:15 | XMS REPORT ---
Author Author DYLAN SAEED [facility] Address [address] [place] [address] Care Team Providers Care Stock Patcher Name Role Phone DYLAN SAEED Unavailable PROBLEMS Type Condition ICD9-CM Code [id number] Code Onset Dates Condition Status SNOMED Code Problem Chronic obstructive pulmonary disease, unspecified COPD type J44.9 Active 03234326 Problem Dysthymia F34.1 Active 22611529 Problem High risk medication use Z79.899 Active 356331559 Problem Other emphysema J43.8 Active 03278664 Problem Primary osteoarthritis of left knee M17.12 Active 239361108 Problem Grief F43.20 Active 26180010 Problem Hidradenitis suppurativa L73.2 Active 73365697 Problem Hyperlipidemia, unspecified hyperlipidemia type E78.5 Active 40436287 Problem GERD without esophagitis K21.9 Active 145416791 Problem Essential hypertension I10 Active 08337553 Problem Nicotine abuse Z72.0 Active 45799015 Problem Lupus M32.9 Active 37271974 Problem Sciatica, unspecified laterality M54.30 Active 74854001 Problem Insomnia, unspecified type G47.00 Active 969504389 Problem Low back pain, unspecified back pain laterality, with sciatica presence unspecified M54.5 Active 353666770 Problem Osteoarthritis of left hand, unspecified osteoarthritis type M19.042 Active 11633262 Problem H/O pulmonary function tests V15.89 Active 037673418 Problem Dry eye, unspecified laterality H04.129 Active 354069102 ALLERGIES Unknown Allergies SOCIAL HISTORY No smoking Hx information available PLAN OF CARE VITAL SIGNS MEDICATIONS Medication Instructions Dosage Frequency Start Date End Date Duration Status Neurontin 300 MG Orally Three times a day 2 capsules 8h 28 Apr, 2015 30 days Active RESULTS No Results PROCEDURES No Known procedures IMMUNIZATIONS No Known Immunizations
--- OUTSIDE RECORDS SUMMARY | 2018-01-03 07:15 | XMS REPORT ---
Author Author DAMI CHOU [facility] Address [address] [place] [address] Care Team Providers Care Material Stockkeeper Yard Name Role Phone DAMI CHOU Unavailable PROBLEMS Type Condition ICD9-CM Code [id number] Code Onset Dates Condition Status SNOMED Code Problem Sciatica, unspecified laterality M54.30 Active 56230907 Problem Grief F43.20 Active 69702927 Problem Dry eye, unspecified laterality H04.129 Active 399536066 Problem Other emphysema J43.8 Active 34806582 Problem Primary osteoarthritis of left knee M17.12 Active 822122764 Problem Hidradenitis suppurativa L73.2 Active 09661637 Problem Dysthymia F34.1 Active 19059726 Problem Hyperlipidemia, unspecified hyperlipidemia type E78.5 Active 51922508 Problem GERD without esophagitis K21.9 Active 874950089 Problem Essential hypertension I10 Active 80633564 Problem Nicotine abuse Z72.0 Active 88168144 Problem Low back pain, unspecified back pain laterality, with sciatica presence unspecified M54.5 Active 979059041 Problem Chronic obstructive pulmonary disease, unspecified COPD type J44.9 Active 97328753 Problem Insomnia, unspecified type G47.00 Active 374056334 Problem Lupus M32.9 Active 36072740 Problem High risk medication use Z79.899 Active 852671427 Problem H/O pulmonary function tests V15.89 Active 479760345 Problem Osteoarthritis of left hand, unspecified osteoarthritis type M19.042 Active 00120359 ALLERGIES Substance Reaction Event Type Date Status N.K.D.A. Unknown Non Drug Allergy Jun, Unknown SOCIAL HISTORY No smoking Hx information available PLAN OF CARE Activity Details Follow Up as scheduled with PCP Reason: VITAL SIGNS Height 63 in 2016-07-18 Weight 210 lbs 2016-07-18 Temperature 97.9 degrees Fahrenheit 2016-07-18 Heart Rate 88 bpm 2016-07-18 Respiratory Rate 20 2016-07-18 BMI 37.20 kg/m2 2016-07-18 Blood pressure systolic 132 mmHg 2016-07-18 Blood pressure diastolic 84 mmHg 2016-07-18 MEDICATIONS Medication Instructions Dosage Frequency Start Date End Date Duration Status Symbicort 160-4.5 MCG/ACT Inhalation Twice a day 1 puff 12h 17 Jul, 2015 Active Sertraline HCl 50 mg Orally Once a day 1 tablet 24h Jan, Active Ibuprofen 200 mg Orally every 12 hrs 4 tablet as needed 12h Active Ranitidine HCl 150 MG Orally 2 times a day 1 tablet 12h 90 days Active Zestril 20 MG Orally Once a day 3 tablets 24h Active Trazodone HCl 100 MG Orally at bedtime and 0.5 Tablet at noon 1 tablet Active Triamcinolone Acetonide 0.1 % 1 Ointment by Topical route 2 times per day PRN apply thin layer to affected area BID 60 grams 12h 23 Feb, 2014 Active Hydroxychloroquine Sulfate 200 Orally 3 times a day 2 tablets 8h Active Doxycycline Hyclate 100 MG Orally every 12 hrs 1 capsule 12h Jan, 30 days Active Multivitamin Active Tylenol 325 MG Orally every 6 hrs 2 tablets as needed 6h Active Neurontin 600 MG Orally Three times a day 1 capsule 8h Apr, 30 days Active Cyclobenzaprine HCl 10 mg Orally Three times a day 1 tablet as needed 8h 30 days Active RESULTS Name Result Date Reference Range CLEOPATRA ANALYZER 2016-07-18 CLEOPATRA Direct Negative Negative See below: ESR/SED RATE 2016-07-18 Sedimentation Rate-Westergren 7 0-40 RA (RHEUMATOID) FACTOR 2016-07-18 RA Latex Turbid. <10.0 0.0-13.9 CRP 2016-07-18 C-Reactive Protein, Quant 14.9 0.0-4.9 PROCEDURES Procedure Date Ordered Related Diagnosis Body Site C-REACTIVE PROTEIN Jul 18, 2016 RBC SED RATE, AUTOMATED Jul 18, 2016 RHEUMATOID FACTOR, QUANT Jul 18, 2016 ANTINUCLEAR ANTIBODIES Jul 18, 2016 Office Visit, Est Pt., Level 4 Jul 18, 2016 VENIPUNCT, ROUTINE* Jul 18, 2016 IMMUNIZATIONS No Known Immunizations
--- OUTSIDE RECORDS SUMMARY | 2018-01-03 07:15 | XMS REPORT ---
Author Author DYLAN SAEED Organization [employer] Address Unknown Phone Unavailable Care Team Providers Care Systems Test Engineer Name Role Phone DYLAN SAEED CP Unavailable [...] F34.1 Active Problem Grief F43.20 Active Assessment Essential hypertension I10 Active Problem [...] Date End Date Status Dosage Hydroxychloroquine Sulfate [facility] 51069283679 200 Orally 3 times a day 2 tablets Zestril [facility] [address]-01 20 MG Orally Once a day 3 tablets Results No Known Results Summary Purpose [employer] Submission
--- OUTSIDE RECORDS SUMMARY | 2018-01-03 07:15 | XMS REPORT ---
Author Author DYLAN SAEED Organization [employer] Address Unknown Phone Unavailable Care Team Providers Care Fabric Worker Supervisor Name Role Phone DYLAN SAEED CP Unavailable [...] Problem Dry eye, unspecified laterality H04.129 Active Assessment Low back pain, unspecified back pain laterality, with sciatica presence unspecified M54.5 Active Assessment Sciatica, unspecified laterality M54.30 Active Problem Essential hypertension I10 Active Problem Nicotine abuse Z72.0 Active Assessment Insomnia, unspecified type G47.00 Active Problem Lupus M32.9 Active Problem Low back pain, unspecified back pain laterality, with sciatica presence unspecified M54.5 Active Problem H/O pulmonary function tests V15.89 Active Medications Medication Code System Code Instructions Start Date End Date Status Dosage Neurontin [facility] [address]-51 600 MG Orally Three times a day May 25, 2015 1 capsule Trazodone HCl [facility] [address]-22 100 MG Orally at bedtime and 0.5 Tablet at noon 1 tablet Cyclobenzaprine HCl [facility] [address]-34 10 MG Orally 3 times a day 1 tablet as needed Results No Known Results Summary Purpose [employer] Submission
--- OUTSIDE RECORDS SUMMARY | 2018-01-03 07:15 | XMS REPORT ---
Author Author DYLAN SAEED [facility] [employer] Address Unknown Phone Unavailable Care Team Providers Care Christmas Tree Grower Name Role Phone DYLAN SAEED CP Unavailable [...] Date End Date Status Dosage Hydroxychloroquine Sulfate [facility] 52053934870 200 Orally 3 times a day 2 tablets Results No Known Results Summary Purpose [employer] Submission
--- OUTSIDE RECORDS SUMMARY | 2018-01-03 07:15 | XMS REPORT ---
Author Author DYLAN SAEED Organization [employer] Address Unknown Phone Unavailable Care Team Providers Care Inventory Control Coordinator Name Role Phone DYLAN SAEED CP Unavailable [...] Active Problem Nicotine abuse Z72.0 Active Assessment Essential hypertension I10 Active Problem Lupus M32.9 Active Problem Low back pain, unspecified back pain laterality, with sciatica presence unspecified M54.5 Active Problem H/O pulmonary function tests V15.89 Active Medications Medication Code System Code Instructions Start Date End Date Status Dosage Zestril [facility] [address]-04 30 MG Orally Once a day 2 tablets Results No Known Results Summary Purpose [employer] Submission
--- OUTSIDE RECORDS SUMMARY | 2018-01-03 07:15 | XMS REPORT ---
Author Author DYLAN SAEED [facility] Address [address] [place] [address] Care Team Providers Care Cardiovascular Radiologic Technologist Name Role Phone DYLAN SAEED Unavailable PROBLEMS Type Condition ICD9-CM Code [id number] Code Onset Dates Condition Status SNOMED Code Problem Chronic obstructive pulmonary disease, unspecified COPD type J44.9 Active 97535662 Problem Dysthymia F34.1 Active 97340915 Problem High risk medication use Z79.899 Active 505427605 Problem Other emphysema J43.8 Active 74792238 Problem Primary osteoarthritis of left knee M17.12 Active 814702108 Problem Grief F43.20 Active 80458929 Problem Hidradenitis suppurativa L73.2 Active 21846341 Problem Hyperlipidemia, unspecified hyperlipidemia type E78.5 Active 67634337 Problem GERD without esophagitis K21.9 Active 366850860 Problem Essential hypertension I10 Active 77398682 Problem Nicotine abuse Z72.0 Active 20020864 Problem Lupus M32.9 Active 20744290 Problem Sciatica, unspecified laterality M54.30 Active 79335546 Problem Insomnia, unspecified type G47.00 Active 962140903 Problem Low back pain, unspecified back pain laterality, with sciatica presence unspecified M54.5 Active 415009574 Problem Osteoarthritis of left hand, unspecified osteoarthritis type M19.042 Active 76248160 Problem H/O pulmonary function tests V15.89 Active 029049285 Problem Dry eye, unspecified laterality H04.129 Active 369838108 ALLERGIES No Known Allergies SOCIAL HISTORY Never Assessed PLAN OF CARE Activity Details Follow Up 4 Weeks Reason:BP VITAL SIGNS Height 63 in 2016-12-07 Weight 207.6 lbs 2016-12-07 Temperature 98.3 degrees Fahrenheit 2016-12-07 Heart Rate 109 bpm 2016-12-07 Respiratory Rate 20 2016-12-07 Oximetry w/ oxygen:97 % 2016-12-07 BMI 36.77 kg/m2 2016-12-07 Blood pressure systolic 140 mmHg 2016-12-07 Blood pressure diastolic 92 mmHg 2016-12-07 MEDICATIONS Medication Instructions Dosage Frequency Start Date End Date Duration Status Ibuprofen 200 mg Orally every 12 hrs 4 tablet as needed 12h Active Cyclobenzaprine HCl 10 MG Orally Three times a day 1 tablet as needed 8h 30 days Active Tylenol 325 MG Orally every 6 hrs 2 tablets as needed 6h Active Symbicort 160-4.5 MCG/ACT Inhalation Twice a day 1 puff 12h 17 Jul, 2015 Active Hydrochlorothiazide 25 MG Orally Once a day 1 tablet in the morning 24h 12 Nov, 2016 30 day(s) Active Oxygen ... by inhalation route with activity 2L via nasal canula Active Albuterol Sulfate (2.5 MG/3ML) 0.083% Inhalation 2 times a day 3 ml 12h Active Zestril 20 MG Orally Once a day 3 tablets 24h Active Neurontin 300 MG Orally Three times a day 2 capsules 8h 28 Apr, 2015 30 days Active Doxycycline Hyclate 100 mg Orally every 12 hrs 1 capsule 12h 07 Jan, 2016 30 days Active Trazodone HCl 100 MG Orally at bedtime and 0.5 Tablet at noon 1 tablet 30 days Active Hydroxychloroquine Sulfate 200 MG Orally 3 times a day 2 tablets 8h 90 days Active Triamcinolone Acetonide 0.1 % 1 Ointment by Topical route 2 times per day PRN apply thin layer to affected area BID 60 grams 12h 23 Feb, 2014 Active Ranitidine HCl 150 MG Orally 2 times a day 1 tablet 12h 90 days Active Multivitamin Active Albuterol Sulfate HFA 108 (90 Base) MCG/ACT Inhalation every 4 hrs 2 puffs as needed 4h Active RESULTS No Results PROCEDURES Procedure Date Ordered Result Body Site MEASURE BLOOD OXYGEN LEVEL December 07, 2016 IMMUNIZATIONS No Known Immunizations MEDICAL (GENERAL) HISTORY Type Description Date Medical History hypertension Medical History lupus Medical History arthritis Medical History H/O pulmonary function tests Medical History COPD Medical History stress test 08/2016 WNL Surgical History x 3 Surgical History ganglian cyst Hospitalization History surgeries
--- OUTSIDE RECORDS SUMMARY | 2018-01-03 07:15 | XMS REPORT ---
Author Author DYLAN SAEED Organization [employer] Address Unknown Phone Unavailable Care Team Providers Care Log Pond Worker Name Role Phone DYLAN SAEED CP [...] Instructions Start Date End Date Status Dosage [facility] [address]-29 10 MG Orally Oct 09, 2015 1 tab by mouth TID x 3 days then 1 tab BID x 3 days then 1 tab daily x 3 days Results No Known Results Summary Purpose [employer] Submission
--- OUTSIDE RECORDS SUMMARY | 2018-01-03 07:16 | XMS REPORT ---
Author Author DYLAN SAEED [facility] Address [address] [place] [address] Care Team Providers Care Program Writer Name Role Phone DYLAN SAEED Unavailable PROBLEMS Type Condition ICD9-CM Code ETM73-[id number] Code Onset Dates Condition Status SNOMED Code Problem Insomnia, unspecified type G47.00 Active 860047444 Problem Osteoarthritis of left hand, unspecified osteoarthritis type M19.042 Active 56205759 Problem High risk medication use Z79.899 Active 076105358 Problem GERD without esophagitis K21.9 Active 684196004 Problem Hidradenitis suppurativa L73.2 Active 26185567 Problem Dry eye, unspecified laterality H04.129 Active 530816652 Problem Sciatica, unspecified laterality M54.30 Active 05534537 Problem Dysthymia F34.1 Active 57244110 Problem Grief F43.20 Active 12788430 Assessment Clumsiness R27.8 Mar, Active 4658383 Assessment Acute pain of left knee M25.562 Mar, Active 33139455 Assessment Family history of early CAD Z82.49 Mar, Active 568132555 Problem Nicotine abuse Z72.0 Active 49933657 Problem Lupus M32.9 Active 59456017 Problem Low back pain, unspecified back pain laterality, with sciatica presence unspecified M54.5 Active 308778898 Problem H/O pulmonary function tests V15.89 Active 392574033 Problem Essential hypertension I10 Active 71719577 Problem Chronic obstructive pulmonary disease, unspecified COPD type J44.9 Active 52313737 ALLERGIES Substance Reaction Event Type Date Status N.K.D.A. Unknown Non Drug Allergy Mar, Unknown SOCIAL HISTORY No smoking Hx information available PLAN OF CARE VITAL SIGNS Height 63 in 2016-04-21 Weight 211.3 lbs 2016-04-21 Heart Rate 100 bpm 2016-04-21 Respiratory Rate 20 2016-04-21 BMI 37.43 kg/m2 2016-04-21 Blood pressure systolic 116 mmHg 2016-04-21 Blood pressure diastolic 78 mmHg 2016-04-21 MEDICATIONS Medication Instructions Dosage Frequency Start Date End Date Duration Status Doxycycline Hyclate 100 MG Orally every 12 hrs 1 capsule 12h Jan, 5 Apr, 2016 30 days Active Symbicort 160-4.5 MCG/ACT Inhalation Twice a day #2 samples given 1 puffs Jul, Active Triamcinolone Acetonide 0.1 % 1 Ointment by Topical route 2 times per day PRN apply thin layer to affected area BID 60 grams 12h Feb, Active Ranitidine HCl 150 MG Orally 2 times a day 1 tablet 12h 90 days Active Cyclobenzaprine HCl 10 MG 1 TABLET NEEDED 3 TIMES A DAY ORALLY 30 DAYS 30 Active Zestril 30 MG Orally Once a day 2 tablets 24h 90 days Active Sertraline HCl 50 mg Orally Once a day 1 tablet 24h Jan, Active Neurontin 600 MG Orally Three times a day 1 capsule 8h Apr, Active Trazodone HCl 100 MG Orally at bedtime and 0.5 Tablet at noon 1 tablet Active Tylenol 325 MG Orally every 6 hrs 2 tablets as needed 6h Active Multivitamin Active Hydroxychloroquine Sulfate 200 Orally 3 times a day 2 tablets 8h Active Ibuprofen 200 mg Orally every 12 hrs 4 tablet as needed 12h Active RESULTS Name Result Date Reference Range CBC 2016-04-21 WBC 8.8 3.4-10.8 RBC 4.94 3.77-5.28 Hemoglobin 14.8 11.1-15.9 Hematocrit 45.1 34.0-46.6 MCV 91 79-97 MCH 30.0 26.6-33.0 MCHC 32.8 31.5-35.7 RDW 13.7 12.3-15.4 Platelets 242 150-379 Neutrophils 58 Lymphs 33 Monocytes 7 Eos 1 Basos 1 Immature Cells Neutrophils (Absolute) 5.1 1.4-7.0 Lymphs (Absolute) 2.9 0.7-3.1 Monocytes(Absolute) 0.6 0.1-0.9 Eos (Absolute) 0.1 0.0-0.4 Baso (Absolute) 0.0 0.0-0.2 Immature Granulocytes 0 Immature Grans (Abs) 0.0 0.0-0.1 NRBC Hematology Comments: LIPID PANEL 2016-04-21 Cholesterol, Total 178 100-199 Triglycerides 190 0-149 HDL Cholesterol 43 >39 VLDL Cholesterol Prasanna 38 5-40 LDL Cholesterol Calc 97 0-99 Comment: ESR/SED RATE (IN HOUSE) 2016-04-21 SED/ESR RATE 9 Lot # [id number] Exp Date 25 Oct 2016 0 - 30 mm Xray : Knee, Left 3 views (IN HOUSE) 2016-04-21 CMP 2016-04-21 Glucose, Serum 72 65-99 BUN 12 6-24 Creatinine, Serum 1.26 0.57-1.00 eGFR If NonAfricn Am 49 >59 eGFR If Africn Am 56 >59 BUN/Creatinine Ratio 10 9-23 Sodium, Serum 143 134-144 Potassium, Serum 5.2 3.5-5.2 Chloride, Serum 102 97-108 Carbon Dioxide, Total 26 18-29 Calcium, Serum 9.4 8.7-10.2 Protein, Total, Serum 6.6 6.0-8.5 Albumin, Serum 3.9 3.5-5.5 Globulin, Total 2.7 1.5-4.5 A/G Ratio 1.4 1.1-2.5 Bilirubin, Total 0.2 0.0-1.2 Alkaline Phosphatase, S 100 39-117 AST (SGOT) 21 0-40 ALT (SGPT) 21 0-32 PROCEDURES Procedure Date Ordered Related Diagnosis Body Site X-RAY EXAM OF KNEE, 3 Apr 21, 2016 COMPLETE CBC W/AUTO DIFF WBC Apr 21, 2016 VENIPUNCT, ROUTINE* Apr 21, 2016 RBC SED RATE, NONAUTOMATED Apr 21, 2016 COMPREHEN METABOLIC PANEL Apr 21, 2016 Office Visit, Est Pt., Level 4 Apr 21, 2016 LIPID PANEL Apr 21, 2016 IMMUNIZATIONS No Known Immunizations
--- OUTSIDE RECORDS SUMMARY | 2018-01-03 07:16 | XMS REPORT ---
Author Author DYLAN SAEED [facility] eClinicalWorks Address Unknown Phone Unavailable Care Team Providers Care Dancing Instructor Name Role Phone DYLAN SAEED Unavailable Allergies, Adverse Reactions, Alerts Substance Reaction Event Type N.K.D.A. Info Not Available Non Drug Allergy Problems Problem Type Condition Code Onset Dates Condition Status Problem Essential hypertension I10 Active Problem Lupus M32.9 Active Problem Nicotine abuse Z72.0 Active Problem Sciatica, unspecified laterality M54.30 Active Problem Osteoarthritis of left hand, unspecified osteoarthritis type M19.042 Active Problem Dry eye, unspecified laterality H04.129 Active Problem Chronic obstructive pulmonary disease, unspecified COPD type J44.9 Active Problem H/O pulmonary function tests V15.89 Active Problem High risk medication use Z79.899 Active Problem Insomnia, unspecified type G47.00 Active Assessment Chronic obstructive pulmonary disease, unspecified COPD type J44.9 Active Assessment Insomnia, unspecified type G47.00 Active Assessment Sciatica, unspecified laterality M54.30 Active Assessment Encounter for immunization Z23 Active Assessment High risk medication use Z79.899 Active Assessment Dry eye, unspecified laterality H04.129 Active Assessment Osteoarthritis of left hand, unspecified osteoarthritis type M19.042 Active Problem Low back pain, unspecified back pain laterality, with sciatica presence unspecified M54.5 Active Medications Medication Code System Code Instructions Start Date End Date Status Dosage Trazodone HCl [facility] [address]-15 100 MG Orally at bedtime and 1/2 at noon 1 tablet Ranitidine HCl [facility] 13928207753 150 TAKE ONE TABLET BY MOUTH TWICE A DAY Chantix [facility] [address]-15 1 mg November 03, 2014 1 tablet 2 times per day Multivitamin [facility] [address] Orally not defined Hydroxychloroquine Sulfate [facility] 85618398950 200 2 times a day TAKE TWO TABLETS BY MOUTH TWICE A DAY Neurontin [facility] [address]-10 600 MG Orally Three times a day May 25, 2015 1 capsule Zestril [facility] 09958821680 20 TAKE THREE TABLETS BY MOUTH DAILY Symbicort [facility] [address]-63 160-4.5 MCG/ACT Inhalation Twice a day #2 samples given Aug 13, 2015 1 puffs Cyclobenzaprine HCl [facility] 23922408787 10 3 times a day TAKE ONE TABLET BY MOUTH TWICE A DAY NEEDED Triamcinolone Acetonide [facility] [address]-81 0.1 % Twice a day March 19, 2014 1 Ointment by Topical route 2 times per day PRN apply thin layer to affected area BID 60 grams Procedures Procedure Coding System Code Date COMPREHEN METABOLIC PANEL CPT-4 39870 Aug 13, 2015 Office Visit, Est Pt., Level 3 CPT-4 21823 Aug 13, 2015 COMPLETE CBC W/AUTO DIFF WBC CPT-4 57136 Aug 13, 2015 IMMUNIZATION ADMIN, EACH ADD (please include units) CPT-4 16372 Aug 13, 2015 SINGLE IMMUNIZATION ADMIN CPT-4 36172 Aug 13, 2015 FLUARIX QUAD (3 & UP)-GSK-2014 CPT-4 38089 Aug 13, 2015 VENIPUNCT, ROUTINE* CPT-4 10310 Aug 13, 2015 TDAP (BOOSTRIX) CPT-4 76288 Aug 13, 2015 PPV23 (PNEUMOVAX) CPT-4 58719 Aug 13, 2015 Vital Signs Date/Time: Aug 13, 2015 Temperature 97.0 F Weight 208 lbs Height 63 in BMI 36.84 Index Blood Pressure Diastolic 82 mmHg Blood Pressure Systolic 128 mmHg Cardiac Monitoring Heart Rate 84 bpm Results No Known Results Immunizations Vaccine Administration Date FLUARIX QUAD (3 & UP)-GSK-2014Aug 13, 2015 TDAP (BOOSTRIX) Aug 13, 2015 PPV23 (PNEUMOVAX) Aug 13, 2015 Summary Purpose eClinicalWorks Submission
--- OUTSIDE RECORDS SUMMARY | 2018-01-03 07:16 | XMS REPORT ---
Author Author DYLAN SAEED [facility] Address [address] [place] [address] Care Team Providers Care Transfer Station Operator Name Role Phone DYLAN SAEED Unavailable PROBLEMS Type Condition ICD9-CM Code HRV41-BK Code Onset Dates Condition Status SNOMED Code Problem Sciatica, unspecified laterality M54.30 Active 74040732 Problem Grief F43.20 Active 97444254 Problem Dry eye, unspecified laterality H04.129 Active 325214987 Problem Other emphysema J43.8 Active 03792709 Problem Primary osteoarthritis of left knee M17.12 Active 446423158 Problem Hidradenitis suppurativa L73.2 Active 62859768 Problem Dysthymia F34.1 Active 92530674 Problem Hyperlipidemia, unspecified hyperlipidemia type E78.5 Active 30420702 Problem GERD without esophagitis K21.9 Active 405950327 Problem Essential hypertension I10 Active 67720253 Problem Nicotine abuse Z72.0 Active 59385327 Problem Low back pain, unspecified back pain laterality, with sciatica presence unspecified M54.5 Active 753991854 Problem Chronic obstructive pulmonary disease, unspecified COPD type J44.9 Active 25526261 Problem Insomnia, unspecified type G47.00 Active 362661761 Problem Lupus M32.9 Active 37702746 Problem High risk medication use Z79.899 Active 811385511 Problem H/O pulmonary function tests V15.89 Active 361069480 Problem Osteoarthritis of left hand, unspecified osteoarthritis type M19.042 Active 56474418 ALLERGIES Unknown Allergies SOCIAL HISTORY No smoking Hx information available PLAN OF CARE VITAL SIGNS MEDICATIONS Medication Instructions Dosage Frequency Start Date End Date Duration Status Neurontin 300 MG Orally Three times a day 2 capsules 8h 28 Apr, 2015 30 days Active Ranitidine HCl 150 MG Orally 2 times a day 1 tablet 12h 90 days Active RESULTS No Results PROCEDURES No Known procedures IMMUNIZATIONS No Known Immunizations
--- OUTSIDE RECORDS SUMMARY | 2018-01-03 07:16 | XMS REPORT ---
Author Author DYLAN SAEED Organization eClinicalWorks Address Unknown Phone Unavailable Care Team Providers Care Conveyor Loader Name Role Phone DYLAN SAEED CP Unavailable [...] Date End Date Status Dosage Hydroxychloroquine Sulfate [facility] 78537293698 200 Orally 3 times a day 2 tablets Results No Known Results Summary Purpose eClinicalWorks Submission
--- OUTSIDE RECORDS SUMMARY | 2018-01-03 07:17 | XMS REPORT ---
Author Author DYLAN SAEED [facility] Address [address] [place] [address] Care Team Providers Care Respiratory Care Instructor Name Role Phone DYLAN SAEED Unavailable PROBLEMS Type Condition ICD9-CM Code SGM11-BJ Code Onset Dates Condition Status SNOMED Code Problem Chronic obstructive pulmonary disease, unspecified COPD type J44.9 Active 29069044 Problem Dysthymia F34.1 Active 05551643 Problem High risk medication use Z79.899 Active 962195350 Problem Other emphysema J43.8 Active 24161108 Problem Primary osteoarthritis of left knee M17.12 Active 616114794 Problem Grief F43.20 Active 82926998 Problem Hidradenitis suppurativa L73.2 Active 63132194 Problem Hyperlipidemia, unspecified hyperlipidemia type E78.5 Active 67255686 Problem GERD without esophagitis K21.9 Active 381107133 Problem Essential hypertension I10 Active 62909117 Problem Nicotine abuse Z72.0 Active 71255012 Problem Lupus M32.9 Active 50938457 Problem Sciatica, unspecified laterality M54.30 Active 56971581 Problem Insomnia, unspecified type G47.00 Active 508977202 Problem Low back pain, unspecified back pain laterality, with sciatica presence unspecified M54.5 Active 617358571 Problem Osteoarthritis of left hand, unspecified osteoarthritis type M19.042 Active 92680122 Problem H/O pulmonary function tests V15.89 Active 934210948 Problem Dry eye, unspecified laterality H04.129 Active 694468329 ALLERGIES No Known Allergies SOCIAL HISTORY No smoking Hx information available PLAN OF CARE VITAL SIGNS MEDICATIONS Medication Instructions Dosage Frequency Start Date End Date Duration Status Cyclobenzaprine HCl 10 mg Orally Three times a day 1 tablet as needed 8h 30 days Active RESULTS No Results PROCEDURES No Known procedures IMMUNIZATIONS No Known Immunizations
--- OUTSIDE RECORDS SUMMARY | 2018-01-03 07:17 | XMS REPORT ---
Author Author DYLAN SAEED Organization e[employer] Address Unknown Phone Unavailable Care Team Providers Care Labor Relations Teacher Name Role Phone DYLAN SAEED CP Unavailable [...]
--- OUTSIDE RECORDS SUMMARY | 2018-01-03 07:17 | XMS REPORT ---
Author Author DYLAN SAEED [facility] eClinicalWorks Address Unknown Phone Unavailable Care Team Providers Care Maple Syrup Maker Name Role Phone DYLAN SAEED CP Unavailable [...] Start Date End Date Status Dosage Zestril [facility] 37766707051 20 TAKE THREE TABLETS BY MOUTH DAILY Ranitidine HCl [facility] 14933509274 150 TAKE ONE TABLET BY MOUTH TWICE A DAY Trazodone HCl [facility] [address]-64 50 MG Orally 2 times a day 1 tablet Neurontin [facility] [address]-39 300 MG Orally Three times a day May 25, 2015 1 capsule Tizanidine HCl [facility] [address]-28 2 MG Orally 2 times a day May 25, 2015 Jul 24, 2015 1 tablet as needed Hydroxychloroquine Sulfate [facility] 34172040965 200 2 times a day TAKE TWO TABLETS BY MOUTH TWICE A DAY Results No Known Results Summary Purpose eClinicalWorks Submission
--- OUTSIDE RECORDS SUMMARY | 2018-01-03 07:17 | XMS REPORT ---
Author Author DYLAN SAEED [facility] Address [address] [place] [address] Care Team Providers Care Streets And Buildings Decorator Name Role Phone DYLAN SAEED Unavailable PROBLEMS Type Condition ICD9-CM Code VIN59-AM Code Onset Dates Condition Status SNOMED Code Problem Chronic obstructive pulmonary disease, unspecified COPD type J44.9 Active 46249736 Problem Dysthymia F34.1 Active 67135939 Problem High risk medication use Z79.899 Active 362869516 Problem Other emphysema J43.8 Active 57939488 Problem Primary osteoarthritis of left knee M17.12 Active 129799300 Problem Grief F43.20 Active 79162739 Problem Hidradenitis suppurativa L73.2 Active 62666729 Problem Hyperlipidemia, unspecified hyperlipidemia type E78.5 Active 49788053 Problem GERD without esophagitis K21.9 Active 337862625 Problem Essential hypertension I10 Active 48803587 Problem Nicotine abuse Z72.0 Active 00258315 Problem Lupus M32.9 Active 46665651 Problem Sciatica, unspecified laterality M54.30 Active 46159347 Problem Insomnia, unspecified type G47.00 Active 610810152 Problem Low back pain, unspecified back pain laterality, with sciatica presence unspecified M54.5 Active 910507239 Problem Osteoarthritis of left hand, unspecified osteoarthritis type M19.042 Active 16223278 Problem H/O pulmonary function tests V15.89 Active 520141275 Problem Dry eye, unspecified laterality H04.129 Active [id number] ALLERGIES No Information ENCOUNTERS Encounter Location Date Diagnosis [facility] [address] [facility] [id number], [place] [address] Apr, [facility] [address] [facility] [id number], [place] [address] Mar, Chronic obstructive pulmonary disease, unspecified COPD type J44.9 ; Essential hypertension I10 ; GERD without esophagitis K21.9 ; Hyperlipidemia, unspecified hyperlipidemia type E78.5 ; Lupus M32.9 and Vertigo R42 [place] [id number] [place] [id number] [place] [address] 27852- 2896 Mar, [place] [id number] [place] [address] 33188- 0872 Feb, [place] [id number] [place] [address] 65130- 0811 Feb, Essential hypertension I10 [place] [address] [address]- 0008 Feb, GERD without esophagitis K21.9 [place] [id number] [place] [address] 03188- 3195 December, Essential hypertension I10 [place] [id number] [place] [address] 75325- 1193 Nov, Chronic obstructive pulmonary disease, unspecified COPD type J44.9 [place] [id number] [place] [address] 10858- 8628 Nov, Chronic obstructive pulmonary disease, unspecified COPD type J44.9 [place] [id number] [place] [address] 00431- 4259 Nov, [place] [id number] [place] [address] 60460- 5491 Nov, Essential hypertension I10 ; Lupus M32.9 ; Other emphysema J43.8 and Breast cancer screening Z12.39 [place] [id number] [place] [address] 88342- 0956 Oct, GERD without esophagitis K21.9 [place] [id number] [place] [address] 58208- 4807 Sep, Chest pain, unspecified type R07.9 ; Shortness of breath R06.02 ; Essential hypertension I10 and Hyperlipidemia, unspecified hyperlipidemia type E78.5 [place] [id number] [place] [address] 31653- 0139 Sep, [facility] [address] [address]- 1276 Sep, [facility] [id number] [place] [address] 63662- 5882 Aug, [place] [address] 30818- 4191 Aug, [place] [id number] [place] [address] 20035- 1156 Jul, GERD without esophagitis K21.9 [place] [id number] [place] [address] 24688- 1743 Jun, Systemic lupus erythematosus, unspecified SLE type, unspecified organ involvement status M32.9 [place] [address] 44229- 6277 Jun, Primary osteoarthritis of left knee M17.12 [place] [id number] [place] [address] 13454- 6766 May, [place] [id number] [place] [address] 43174- 7503 May, Chest pain, unspecified type R07.9 ; Shortness of breath R06.02 ; Essential hypertension I10 and Hyperlipidemia, unspecified hyperlipidemia type E78.5 [place] [id number] [place] [address] 30548- 3296 May, Essential hypertension I10 [place] [id number] [place] [address] 80670- 4165 Apr, Sciatica, unspecified laterality M54.30 [place] [id number] [place] [address] 99477- 3315 Apr, [place] [id number] [place] [address] 46444- 0285 Mar, Chronic obstructive pulmonary disease, unspecified COPD type J44.9 [place] [id number] [place] [address] 19228- 0801 Mar, Acute pain of left knee M25.562 ; Dysthymia F34.1 ; Lupus M32.9 ; Clumsiness R27.8 and Family history of early CAD Z82.49 [place] [address] 06861- 7112 Mar, Essential hypertension I10 [place] [address] 81127- 5538 Feb, [place] [address] 23177- 8721 Feb, Insomnia, unspecified type G47.00 ; Sciatica, unspecified laterality M54.30 and Low back pain, unspecified back pain laterality, with sciatica presence unspecified M54.5 [place] [address] 64391- 1671 Jan, Hidradenitis suppurativa L73.2 ; Dysthymia F34.1 and Grief F43.20 [place] [address] 71141- 1656 December, [place] [address] 70955- 8570 December, Essential hypertension I10 ; Sciatica, unspecified laterality M54.30 ; GERD without esophagitis K21.9 ; Insomnia, unspecified type G47.00 and Low back pain, unspecified back pain laterality, with sciatica presence unspecified M54.5 [place] [address] 70913- 2773 December, [place] [address] 16431- 4371 Oct, [place] [address] 57816- 6716 Sep, [facility] [id number] [place] [address] 00482- 5376 Sep, [facility] [id number] [place] [address] 89055- 1436 Aug, [facility] [id number] [place] [address] 99541- 5586 Aug, [facility] [id number] [place] [address] 51856- 0896 Jul, Dry eye, unspecified laterality H04.129 ; Encounter for immunization Z23 ; Sciatica, unspecified laterality M54.30 ; Osteoarthritis of left hand, unspecified osteoarthritis type M19.042 ; High risk medication use Z79.899 ; Insomnia, unspecified type G47.00 and Chronic obstructive pulmonary disease, unspecified COPD type J44.9 [facility] [id number] [place] [address] 18978- 3666 Jul, Shortness of breath R06.02 [facility] [id number] [place] [address] 17402- 0366 Jul, [facility] [id number] [place] [address] 08327- 5066 Jun, [facility] [address] [place] [id number] [place] [address] [id number] Jun, [facility] [id number] [place] [address] 96115- 1396 May, [facility] [id number] [place] [address] 16311- 2546 May, [facility] [address] 88280- 2476 Apr, Insomnia 780.52 ; Chronic pain 338.29 ; Photophobia 368.13 ; Lupus 710.0 and Shortness of breath 786.05 [facility] [id number] [place] [address] 38545- 3267 Mar, [facility] [place] [facility] [address] [id number] [place] [address]- 0133 Mar, [facility] [place] [facility] [address] [id number] [place] [address]- 6394 Mar, [facility] [place] [facility] [address] [id number] [place] [address]- 7523 Mar, [facility] [place] [facility] [address] [id number] [place] [address]- 5636 Mar, [facility] [place] [facility] [address] [id number] [place] [address]- 3168 Nov, [facility] [place] [facility] [address] [id number] [place] [address]- 6892 Nov, [facility] [place] [facility] [address] [id number] [place] [address]- 1265 Oct, [facility] [place] [facility] [address] [id number] [place] [address]- 9728 Oct, [facility] [place] [facility] [address] [id number] [place] [address]- 7480 Oct, [facility] [place] [facility] [address] [id number] [place] [address]- 5522 Oct, [facility] [place] [facility] [address] [id number] [place] [address]- 2868 Oct, [facility] [place] [facility] [address] [id number] [place] [address]- 8524 Oct, [facility] [place] [facility] [address] [id number] [place] [address]- 2423 Oct, [facility] [place] [facility] [address] [id number] [place] 3120 Oct, [facility] [place] [facility] [address] [id number] [place] [address]- 4343 Oct, [facility] [place] [facility] [address] [id number] [address]- 9238 Oct, [facility] [place] [facility] [address] [id number] [place] [address]- 9144 Sep, [facility] [place] [facility] [address] [id number] [place] [address]- 6679 Sep, [facility] [place] [facility] [address] [facility] [id number] [place] [address]- 1250 Sep, [facility] [place] [facility] [address] [id number] [place] [address]- 5996 Sep, [facility] [place] [facility] [address] [id number] [place] [address]- 7442 Aug, [facility] [place] [facility] [address] [facility] [id number] [place] [address]- 5646 Aug, [facility] [place] [facility] [address] [facility] [id number] [place] [address]- 2257 Aug, [facility] [place] [facility] [address] [facility] [id number] [place] [address]- 5004 Aug, [facility] [place] [facility] [address] [facility] [id number] [place] [address]- 7766 Jul, [facility] [place] [facility] [address] [facility] [id number] [place] [address]- 8227 Jul, [facility] [place] [facility] [address] [facility] [id number] [place] [address]- 6743 Jun, [facility] [place] [facility] [address] [facility] [id number], [place] [address]- 3109 Jun, [facility] [place] [facility] [address] [facility] [id number] [place] [address]- 7680 May, [facility] [place] [facility] [address] [facility] [id number] [place] [address]- 6394 May, [facility] [place] [facility] [address] [facility] [id number] 5532 May, [facility] [place] [facility] [address] [id number] [place] [address]- 2662 May, [facility] [place] [facility] [address] [id number] [place] [address]- 8113 May, [facility] [place] [facility] [address] [id number] [place] [address]- 3500 May, [facility] [place] [facility] [address] [id number] [place] [address]- 8026 May, [facility] [place] [facility] [address] [id number] [place] [address]- 7236 May, [facility] [place] [facility] [address] [id number] [place] [address]- 0769 May, [facility] [place] [facility] [address] [id number] [place] [address]- 3272 May, [facility] [place] [facility] [address] [id number] [place] [address]- 1773 Apr, [facility] [place] [facility] [address] [id number] [place] [address]- 1602 Apr, [facility] [place] [facility] [address] [id number] [place] [address]- 9835 Apr, [facility] [place] [facility] [address] [id number] [place] [address]- 3761 Apr, [facility] [place] [facility] [address] [id number] [place] [address]- 5123 Apr, [facility] [place] [facility] [address] [id number] [place] [address]- 3818 Apr, [facility] [place] [facility] [address] [id number] [place] [address]- 6588 Mar, [facility] [place] [facility] [address] [id number] [place] [address]- 2936 Mar, [facility] [place] [facility] [address] [id number] [place] [address]- 9771 Mar, [facility] [place] [facility] [address] [id number] [place] [address]- 8188 Mar, [facility] [place] [facility] [address] [id number] [place] [address]- 7064 Mar, [facility] [place] [facility] [address] [id number] [place] [address]- 1688 Mar, [facility] [place] [facility] [address] [id number] [place] [address]- 2217 Mar, [facility] [place] [facility] [address] [id number] [place] [address]- 2505 Mar, [facility] [place] [facility] [address] [id number] [place] [address]- 9626 Mar, [facility] [place] [facility] [address] [id number] [place] [address]- 4951 Mar, [facility] [place] [facility] [address] [id number] [place] [address]- 1350 Mar, [facility] [place] [facility] [address] [id number] [place] [address]- 0431 Mar, [facility] [place] [facility] [address] [id number] [place] [address]- 4171 Mar, [facility] [place] [facility] [address] [id number] [place] [address]- 0057 Mar, [facility] [place] [facility] [address] [id number] [place] [address]- 8411 Mar, [facility] [place] [facility] [address] [id number] [place] [address]- 4869 Feb, [facility] [place] [facility] [address] [id number] [place] [address]- 0991 Feb, [facility] [place] [facility] [address] [id number] [place] [address]- 4522 Feb, [facility] [place] [facility] [address] [id number] [place] [address]- 5283 Feb, [facility] [place] [facility] [address] [id number] [place] [address]- 3596 Feb, [facility] [place] [facility] [address] [id number] [place] [address]- 5592 Feb, [facility] [place] [facility] [address] [id number] [place] [address]- 1050 Feb, [facility] [place] [facility] [address] [id number] [place] [address]- 5204 Feb, [facility] [place] [facility] [address] [id number] [place] [address]- 5748 Feb, [facility] [place] [facility] [address] [id number] [place] [address]- 8598 Feb, [facility] [place] [facility] [address] [id number] [place] [address]- 9720 Feb, [facility] [place] [facility] [address] [id number] [place] [address]- 2588 Feb, [facility] [place] [facility] [address] [id number] [place] [address]- 1482 Feb, [facility] [place] [facility] [address] [id number] [place] [address]- 4821 Jan, [facility] [place] [facility] [address] [id number] [place] [address]- 4862 Jan, [facility] [place] [facility] [address] [id number] [place] [address]- 0402 Jan, [facility] [place] [facility] [address] [id number] [place] [address]- 0361 Jan, [facility] [place] [facility] [address] [id number] [place] [address]- 7586 December, [facility] [place] [facility] [address] [id number] [place] [address]- 1781 December, [facility] [place] [facility] [address] [id number] [place] [address]- 6440 December, [facility] [place] [facility] [address] [id number] [place] [address]- 2109 December, [facility] [place] [facility] [address] [id number] [place] [address]- 9441 Nov, [facility] [place] [facility] [address] [id number] [place] [address]- 6953 Nov, [facility] [place] [facility] [address] [id number] [place] [address]- 5814 Nov, [facility] [place] [facility] [address] [id number] [place] [address]- 4438 Nov, [facility] [place] [facility] [address] [id number] [place] [address]- 7291 Nov, [facility] [place] [facility] [address] [id number] [place] [address]- 8987 Nov, [facility] [place] [facility] [address] [id number] [place] [address]- 4782 Nov, [facility] [place] [facility] [address] [id number] [place] [address]- 1379 Nov, [facility] [place] [facility] [address] [id number] [place] [address]- 4151 Nov, [facility] [place] [facility] [address] [id number] [place] [address]- 0393 Oct, [facility] [place] [facility] [address] [id number] [place] [address]- 0647 Oct, [facility] [place] [facility] [address] [id number] [place] [address]- 2408 Oct, [facility] [place] [facility] [address] [id number] [place] 9349 Oct, [facility] [place] [facility] [address] [id number] [place] [address]- 9434 Oct, [facility] [place] [facility] [address] [id number] [place] [address]- 6812 Oct, [facility] [place] [facility] [address] [id number] [place] [address]- 0878 Oct, [facility] [place] [facility] [address] [id number] [place] [address]- 9727 Oct, [facility] [place] [facility] [address] [id number] [place] [address]- 1613 Sep, [facility] [place] [facility] [address] [id number] [place] [address]- 2217 Sep, [facility] [place] [facility] [address] [id number] [place] [address]- 8407 Sep, [facility] [place] [facility] [address] [id number] [place] [address]- 0080 Sep, [facility] [place] [facility] [address] [id number] [place] [address]- 2453 Sep, [facility] [place] [facility] [address] [id number] [place] [address]- 3079 Sep, [facility] [place] [facility] [address] [id number] [place] [address]- 6235 Aug, [facility] [place] [facility] [address] [id number] [place] [address]- 4864 Aug, [facility] [place] [facility] [address] [id number] [place] [address]- 8734 Aug, [facility] [place] [facility] [address] [id number] [place] [address]- 2800 Aug, [facility] [place] [facility] [address] [id number] [place] [address]- 1206 Aug, [facility] [place] [facility] [address] [id number] [place] [address]- 1883 Aug, [facility] [place] [facility] [address] [id number] [place] [address]- 0268 Jul, [facility] [address] [id number] [place] [address]- 3233 Jul, [facility] [address] [id number] [place] [address]- 5437 Jul, [facility] [address] [id number] [place] [address]- 1209 Jul, [facility] [address] [id number] [place] [address]- 2070 Jul, [facility] [address] [id number] [place] [address]- 0808 Jul, [facility] [address] [id number] [place] [address]- 1838 Jul, [facility] [address] [id number] [place] [address]- 7646 Jul, [facility] [address] [id number] [place] [address]- 2683 Jun, [facility] [address] [id number] [place] [address]- 8900 Jun, [facility] [address] [id number] [place] [address]- 8723 Jun, [facility] [address] [id number] [place] [address] Jun, [facility] [place] [facility] [address] [id number] [place] [address] 17 Jun, 2013 [facility] [place] [facility] [address] [id number] [place] [address] 14 Jun, 2013 [facility] [place] [facility] [address] [id number] [place] [address] 14 Jun, 2013 [facility] [place] [facility] [address] [id number] [place] [address] 14 Jun, 2013 [facility] [place] [facility] [address] [id number] [place] [address] 14 Jun, 2013 [facility] [place] [facility] [address] [id number] [place] [address] 14 Jun, 2013 [facility] [place] [facility] [address] [id number] [place] [address] 14 Jun, 2013 [facility] [place] [facility] [address] [id number], [place] [address] Jun, [facility] [place] [facility] [address] [id number] [place] [address] Jun, [facility] [place] [facility] [address] [id number] [place] [address] 06 Jun, 2013 [facility] [place] [facility] [address] [id number], [place] [address] Jun, [facility] [place] [facility] [address] [id number], [place] [address] Jun, [facility] [place] [facility] [address] [id number], [place] [address] Jun, [facility] [place] [facility] [address] [id number], [place] [address] May, [facility] [place] [facility] [address] [id number], [place] [address] May, [facility] [place] [facility] [address] [id number], [place] [address] 15 May, 2013 [facility] [place] [facility] [address] [id number], [place] [address] 15 May, 2013 [facility] [place] [facility] [address] [id number], [place] [address] May, [facility] [place] [facility] [address] [id number], [place] [address] Apr, [facility] [place] [facility] [address] [id number] [place] [address] 17 Apr, 2013 [facility] [address] [id number] [place] [address] Apr, [facility] [address] [id number] [place] [address] Mar, [facility] [address] [id number] [place] [address] Mar, [facility] [address] [id number] [place] [address] Feb, [facility] [address] [id number] [place] [address] Feb, [facility] [address] [id number] [place] [address] Feb, [facility] [address] [id number] [place] [address] Jan, [facility] [address] [id number] [place] [address] Jan, [facility] [address] [id number] [place] [address] Jan, [facility] [address] [id number] [place] [address] Jan, [facility] [address] [id number] [place] [address] Jan, [facility] [address] [id number] [place] [address] Jan, [facility] [place] [facility] [address] [id number] [place] [address] December, [facility] [place] [facility] [address] [id number] [place] [address] Nov, [facility] [address] [id number] [place] [address] Nov, [facility] [address] [id number] [place] [address] Nov, [facility] [address] [id number] [place] [address] Nov, [facility] [address] [id number] [place] [address] Nov, [facility] [address] [id number] [place] [address] Oct, [facility] [address] [id number] [place] [address] Oct, [facility] [address] [id number] [place] [address] Sep, [facility] [address] [id number] [place] [address] Sep, [facility] [address] [id number] [place] [address] Sep, [facility] [address] [id number] [place] [address] Sep, [facility] [address] [id number] [place] [address] Sep, [facility] [address] [id number] [place] [address] Aug, [facility] [place] [facility] [address] [id number] [place] [address] Jul, [facility] [place] [facility] [address] [id number] [place] [address] Jul, [facility] [place] [facility] [address] [id number] [place] [address] Jul, [facility] [place] [facility] [address] [id number] [place] [address] Jul, [facility] [address] [id number] [place] [address] Jun, [facility] [place] [facility] [address] [id number] [place] [address] Jun, [facility] [place] [facility] [address] [id number] [place] [address] Jun, [facility] [place] [facility] [address] [id number] [place] [address] Jun, [facility] [place] [facility] [address] [id number] [place] [address] Jun, [facility] [place] [facility] [address] [id number] [place] [address] Jun, [facility] [place] [facility] [address] [id number] [place] [address] Jun, [facility] [place] [facility] [address] [id number] [place] [address] Jun, [facility] [place] [facility] [address] [id number] [place] [address] May, [facility] [place] [facility] [address] [id number] [place] [address] May, [facility] [place] [facility] [address] [facility] [id number] [place] [address] May, [facility] [place] [facility] [address] [id number] [place] [address] May, [facility] [place] [facility] [address] [id number] [place] [address] May, [facility] [place] [facility] [address] [id number] [place] [address] May, [facility] [place] [facility] [address] [facility] [id number] [place] [address] May, [facility] [place] [facility] [address] [id number] [place] [address] May, [facility] [place] [facility] [address] [id number] [place] [address] 27 Apr, 2012 [facility] [place] [facility] [address] [id number] [place] [address] 19 Apr, 2012 [facility] [place] [facility] [address] [id number] [place] [address] 18 Apr, 2012 [facility] [place] [facility] [address] [id number] [place] [address] 27 Mar, 2012 [facility] [address] [id number] [place] [address] 13 Mar, 2012 [facility] [place] [facility] [address] [id number] [place] [address] 31 Feb, 2012 [facility] [address] [id number] [place] [address] 17 Feb, 2012 [facility] [address] [id number] [place] [address] 16 Feb, 2012 [facility] [place] [facility] [address] [id number] [place] [address] Feb, [facility] [place] [facility] [address] [id number] [place] [address] Jan, [facility] [place] [facility] [address] [id number] [place] [address] December, [facility] [place] [facility] [address] [id number] [place] [address] December, [facility] [place] [facility] [address] [id number] [place] [address] Nov, [facility] [place] [facility] [address] [id number] [place] [address] Oct, [facility] [place] [facility] [address] [id number] [place] [address] Oct, [facility] [place] [facility] [address] [id number] [address] Sep, [facility] [address] [id number] [address] Sep, [facility] [address], [place] [address] Sep, [facility] [id number], [place] [address] Sep, [facility] [address], [place] [address] Sep, [facility] [address] [id number] [address] Sep, [facility] [id number], [place] [address] Sep, IMMUNIZATIONS No Known Immunizations SOCIAL HISTORY Never Assessed REASON FOR VISIT Lisinopril refill PLAN OF CARE VITAL SIGNS MEDICATIONS Medication Instructions Dosage Frequency Start Date End Date Duration Status Zestril 30 MG Orally Once a day 2 tablets 24h 30 days Active RESULTS No Results PROCEDURES [...]
--- OUTSIDE RECORDS SUMMARY | 2018-01-03 07:17 | XMS REPORT ---
Author Author DYLAN SAEED [facility] e[employer] Address Unknown Phone Unavailable Care Team Providers Care Campaign Director Name Role Phone DYLAN SAEED Unavailable Allergies, Adverse Reactions, Alerts Substance Reaction Event Type N.K.D.A. Info Not Available Non Drug Allergy Problems Problem Type Condition Code Onset Dates Condition Status Assessment Photophobia 368.13 Active Assessment Lupus 710.0 Active Assessment Insomnia 780.52 Active Assessment Chronic pain 338.29 Active Problem Lupus erythematosus 695.4 Active Problem Acute [...] of initiating or maintaining sleep 307.42 Active Assessment Shortness of breath 786.05 Active Problem Unspecified infective otitis externa 380.10 [...] Instructions Start Date End Date Status Dosage Triamcinolone Acetonide [facility] [address]-76 0.1 % March 19, 2014 1 Ointment by Topical route 2 times per day PRN apply thin layer to affected area BID 60 grams Trazodone HCl [facility] [address]-76 50 MG Orally 2 times a day 1 tablet Neurontin [facility] [address]-35 300 MG Orally Three times a day May 25, 2015 1 capsule Zestril [facility] [id number] 20 TAKE THREE TABLETS BY MOUTH DAILY Hydroxychloroquine Sulfate [facility] 45420830783 200 2 times a day TAKE TWO TABLETS BY MOUTH TWICE A DAY Tizanidine HCl [facility] [address]-14 2 MG Orally 2 times a day May 25, 2015 Jul 24, 2015 1 tablet as needed Ranitidine HCl [facility] 14569258197 150 TAKE ONE TABLET BY MOUTH TWICE A DAY Procedures Procedure Coding System Code Date COMPREHEN METABOLIC PANEL CPT-4 15128 May 25, 2015 ELECTROCARDIOGRAM, TRACING CPT-4 86836 May 25, 2015 COMPLETE CBC W/AUTO DIFF WBC CPT-4 58964 May 25, 2015 ASSAY OF MAGNESIUM CPT-4 28825 May 25, 2015 LIPID PANEL CPT-4 55329 May 25, 2015 Office Visit, Est Pt., Level 3 CPT-4 69068 May 25, 2015 VENIPUNCT, ROUTINE* CPT-4 49869 May 25, 2015 Vital Signs Date/Time: May 25, 2015 Temperature 98.0 F Weight 204 lbs Height 63 in BMI 36.13 Index Blood Pressure Diastolic 88 mmHg Blood Pressure Systolic 138 mmHg Cardiac Monitoring Heart Rate 108 bpm Results Name Result Date Reference Range Unit Abnormality Flag ROUTINE VENIPUNCTURE MAGNESIUM, SERUM Summary Purpose eClinical[employer] Submission
--- OUTSIDE RECORDS SUMMARY | 2018-01-03 07:17 | XMS REPORT ---
Author Author DYLAN SAEED Organization [employer] Address Unknown Phone Unavailable Care Team Providers Care Deputy Director Of Nursing Name Role Phone DYLAN SAEED CP Unavailable [...] Dysthymia F34.1 Active Problem Grief F43.20 Active Problem Nicotine abuse Z72.0 Active Problem Lupus M32.9 Active Problem Low back pain, unspecified back pain laterality, with sciatica presence unspecified M54.5 Active Problem H/O pulmonary function tests V15.89 Active Problem Essential hypertension I10 Active Problem Chronic obstructive pulmonary disease, unspecified COPD type J44.9 Active Medications No Known Medications Results No Known Results Summary Purpose eClinicalWorks Submission
--- OUTSIDE RECORDS SUMMARY | 2018-01-03 07:19 | XMS REPORT | Continuity of Care Document ---
Author Author [facility] of [facility] Address Unknown Phone Unavailable Allergies Active Description Code Type Severity Reaction Onset Reported/Identified Relationship to Patient Clinical Status Yes No Known Drug Allergies [id number] Drug Allergy Unknown N/A 07/08/2014 Medications There is no data. Problems Date Dx Coded Attending Type Code Diagnosis Diagnosed By 10/20/2011 DYLAN SAEED APRN 307.42 SECONDARY INSOMNIA 10/20/2011 DYLAN SAEED APRN S 724.2 lower back pain 10/20/2011 DYLAN SAEED APRN S 780.60 fever [as symptom] 10/20/2011 DYLAN SAEED APRN S 780.79 FATIGUE 10/20/2011 AYESHA SAEED APRNA S 783.1 recent weight gain (___ lbs) [reported] 10/20/2011 DYLAN SAEED APRN S 789.01 abdominal pain in the right upper belly (RUQ) 10/20/2011 DYLAN SAEED APRN S 796.2 Blood Pressure Isolated Elevated 10/20/2011 DYLAN SAEED APRN S V19.8 family history [For FHx of Dx use Dx w/ F prefix] 10/20/2011 DYLAN SAEED APRN S 307.42 SECONDARY INSOMNIA 10/20/2011 DYLAN SAEED APRN S 724.2 lower back pain 10/20/2011 DYLAN SAEED APRN S 780.60 fever [as symptom] 10/20/2011 DYLAN SAEED APRN S 780.79 FATIGUE 10/20/2011 AYESHA SAEED APRNA S 783.1 recent weight gain (___ lbs) [reported] 10/20/2011 AYESHA SAEED APRNA S 789.01 abdominal pain in the right upper belly (RUQ) 10/20/2011 AYESHA SAEED APRNA S 796.2 Blood Pressure Isolated Elevated 10/20/2011 AYESHA SAEED APRNA S V19.8 family history [For FHx of Dx use Dx w/ F prefix] 10/20/2011 MATT PICHARDO MD 307.42 SECONDARY INSOMNIA 10/20/2011 MATT PICHARDO MD 724.2 lower back pain 10/20/2011 MATT PICHARDO MD 780.60 fever [as symptom] 10/20/2011 MATT PICHARDO MD 780.79 FATIGUE 10/20/2011 MATT PICHARDO MD 783.1 recent weight gain (___ lbs) [reported] 10/20/2011 MATT PICHARDO MD 789.01 abdominal pain in the right upper belly (RUQ) 10/20/2011 MATT PICHARDO MD 796.2 Blood Pressure [...] S 783.1 recent weight gain (___ lbs) [reported] 10/20/2011 AYESHA SAEED APRNA S 789.01 abdominal [...] Dx use Dx w/ F prefix] 10/20/2011 AYESHA SAEED APRNA S 307.42 SECONDARY INSOMNIA 10/20/2011 HECTOR SAEED APRNNDA S 724.2 lower back pain 10/20/2011 HECTOR SAEED APRNNDA S 780.60 fever [as symptom] 10/20/2011 CHRISTOPHE RILEY, DYLAN S 780.79 FATIGUE 10/20/2011 HECTOR SAEED APRNNDA S 783.1 recent weight gain (___ lbs) [reported] 10/20/2011 HECTOR SAEED APRNNDA S 789.01 abdominal pain in the right upper belly (RUQ) 10/20/2011 HECTOR SAEED APRNNDA S 796.2 Blood Pressure Isolated Elevated 10/20/2011 HECTOR SAEED APRNNDA S V19.8 family history [For FHx of Dx use Dx w/ F prefix] 10/20/2011 CHRISTOPHE RILEY, DYLAN S 307.42 SECONDARY INSOMNIA 10/20/2011 CHRISTOPHE RILEY, DYLAN S 724.2 lower back pain 10/20/2011 CHRISTOPHE RILEY, DYLAN S 780.60 fever [as symptom] 10/20/2011 CHRISTOPHE RILEY, DYLAN S 780.79 FATIGUE 10/20/2011 CHRISTOPHE RILEY, DYLAN S 783.1 recent weight gain (___ lbs) [reported] 10/20/2011 CHRISTOPHE RILEY, DYLAN S 789.01 abdominal pain in the right upper belly (RUQ) 10/20/2011 CHRISTOPHE RILEY, DYLAN S 796.2 Blood Pressure Isolated Elevated 10/20/2011 CHRISTOPHE RILEY DYLAN S V19.8 family history [For FHx of Dx use Dx w/ F prefix] 10/20/2011 CHRISTOPHE RILEY DYLAN S 307.42 SECONDARY INSOMNIA 10/20/2011 CHRISTOPHE RILEY, DYLAN S 724.2 lower back pain 10/20/2011 CHRISTOPHE RILEY, DYLAN S 780.60 fever [as symptom] 10/20/2011 HECTOR SAEED APRNNDA S 780.79 FATIGUE 10/20/2011 CHRISTOPHE RILEY, DYLAN S 783.1 recent weight gain (___ lbs) [reported] 10/20/2011 CHRISTOPHE RILEY, DYLAN S 789.01 abdominal pain in the right upper belly (RUQ) 10/20/2011 CHRISTOPHE RILEY, DYLAN S 796.2 Blood Pressure Isolated Elevated 10/20/2011 CHRISTOPHE RILEY, DYLAN S V19.8 family history [For FHx of Dx use Dx w/ F prefix] 10/20/2011 CHRISTOPHE RILEY, DYLAN S 307.42 SECONDARY INSOMNIA 10/20/2011 CHRISTOPHE CUSTOMER RETENTION REPRESENTATIVE, DYLAN S 724.2 lower back pain 10/20/2011 CHRISTOPHE RILEY, DYLAN S 780.60 fever [as symptom] 10/20/2011 AYESHA SAEED APRNA S 780.79 FATIGUE 10/20/2011 CHRISTOPHERADHA YENAYESHA PalomaresA S 783.1 recent weight gain (___ lbs) [reported] 10/20/2011 AYESHA SAEED APRNA S 789.01 abdominal pain in the right upper belly (RUQ) 10/20/2011 CHRISTOPHE AYESHA RILEYA S 796.2 Blood Pressure Isolated Elevated 10/20/2011 DYLAN SAEED APRN S V19.8 family history [For FHx of Dx use Dx w/ F prefix] 10/20/2011 AYESHA SAEED APRNA S 307.42 SECONDARY INSOMNIA 10/20/2011 AYESHA SAEED APRNA S 724.2 LOWER BACK PAIN 10/20/2011 AYESHA SAEED APRNA S 780.60 FEVER [ SYMPTOM] 10/20/2011 AYESHA SAEED APRNA S 780.79 FATIGUE 10/20/2011 AYESHA SAEED APRNA S 783.1 RECENT WEIGHT GAIN (___ LBS) [REPORTED] 10/20/2011 AYESHA SAEED APRNA S 789.01 ABDOMINAL PAIN IN THE RIGHT UPPER BELLY (RUQ) 10/20/2011 AYESHA SAEED APRNA S 796.2 BLOOD PRESSURE ISOLATED ELEVATED 10/20/2011 CHRISTOPHE CUSTOMER RETENTION REPRESENTATIVEAYESHA PalomaresA S V19.8 family history [For FHx of Dx use Dx w/ F prefix] 10/20/2011 JOHANN AGUERO APRN A 307.42 SECONDARY INSOMNIA 10/20/2011 ROBERTO AGUERO APRNIDI A 724.2 LOWER BACK PAIN 10/20/2011 ROBERTO AGUERO APRNIDI A 780.60 FEVER [ SYMPTOM] 10/20/2011 ROBERTO AGUERO APRNIDI A 780.79 FATIGUE 10/20/2011 ROBERTO AGUERO APRNIDI A 783.1 RECENT WEIGHT GAIN (___ LBS) [REPORTED] 10/20/2011 ROBERTO AGUERO APRNIDI A 789.01 ABDOMINAL PAIN IN THE RIGHT UPPER BELLY (RUQ) 10/20/2011 ROBERTO AGUERO APRNIDI A 796.2 BLOOD PRESSURE ISOLATED ELEVATED 10/20/2011 ROBERTO AGUERO APRNIDI A V19.8 family history [For FHx of Dx use Dx w/ F prefix] 10/20/2011 ROBERTO AGUERO APRNIDI A 307.42 SECONDARY INSOMNIA 10/20/2011 ROBERTO AGUERO APRNIDI A 724.2 LOWER BACK PAIN 10/20/2011 ROBERTO AGUERO APRNIDI A 780.60 FEVER [ SYMPTOM] 10/20/2011 ROBERTO AGUERO APRNIDI A 780.79 FATIGUE 10/20/2011 ROBERTO AGUERO APRNIDI A 783.1 RECENT WEIGHT GAIN (___ LBS) [REPORTED] 10/20/2011 ROBERTO AGUERO APRNIDI A 789.01 ABDOMINAL PAIN IN THE RIGHT UPPER BELLY (RUQ) 10/20/2011 ROBERTO AGUERO APRNIDI A 796.2 BLOOD PRESSURE ISOLATED ELEVATED 10/20/2011 ROBERTO AGUERO APRNIDI A V19.8 family history [For FHx of Dx use Dx w/ F prefix] 10/20/2011 CHRISTOPHE RILEY DYLAN S 307.42 SECONDARY INSOMNIA 10/20/2011 HECTOR SAEED APRNNDA S 724.2 LOWER BACK PAIN 10/20/2011 HECTOR SAEED APRNNDA S 780.60 FEVER [ SYMPTOM] 10/20/2011 HECTOR SAEED APRNNDA S 780.79 FATIGUE 10/20/2011 HECTOR SAEED APRNNDA S 783.1 RECENT WEIGHT GAIN (___ LBS) [REPORTED] 10/20/2011 HECTOR SAEED APRNNDA S 789.01 ABDOMINAL PAIN IN THE RIGHT UPPER BELLY (RUQ) 10/20/2011 HECTOR SAEED APRNNDA S 796.2 BLOOD PRESSURE ISOLATED ELEVATED 10/20/2011 HETCOR SAEED APRNNDA S V19.8 family history [For FHx of Dx use Dx w/ F prefix] 10/20/2011 CHRISTOPHE RILEY DYLAN S 307.42 SECONDARY INSOMNIA 10/20/2011 CHRISTOPHE RILEY DYLAN S 724.2 LOWER BACK PAIN 10/20/2011 HECTOR SAEED APRNNDA S 780.60 FEVER [ SYMPTOM] 10/20/2011 HECTOR SAEED APRNNDA S 780.79 FATIGUE 10/20/2011 HECTOR SAEED APRNNDA S 783.1 RECENT WEIGHT GAIN (___ LBS) [REPORTED] 10/20/2011 HECTOR SAEED APRNNDA S 789.01 ABDOMINAL PAIN IN THE RIGHT UPPER BELLY (RUQ) 10/20/2011 HECTOR SAEED APRNNDA S 796.2 BLOOD PRESSURE ISOLATED ELEVATED 10/20/2011 HECTOR SAEED APRNNDA S V19.8 family history [For FHx of Dx use Dx w/ F prefix] 10/27/2011 HECTOR SAEED APRNNDA S 710.0 SYSTEMIC LUPUS ERYTHEMATOSUS 10/27/2011 HECTOR SAEED APRNNDA S 710.0 SYSTEMIC LUPUS ERYTHEMATOSUS 10/27/2011 MATT PICHARDO MD 710.0 SYSTEMIC LUPUS ERYTHEMATOSUS 10/27/2011 CHRISTOPHE RILEY [...] S 710.0 SYSTEMIC LUPUS ERYTHEMATOSUS 10/27/2011 MORE CUSTOMER RETENTION REPRESENTATIVE, JOHANN A 710.0 SYSTEMIC LUPUS ERYTHEMATOSUS 10/27/2011 MORE CUSTOMER RETENTION REPRESENTATIVE, JOHANN A 710.0 SYSTEMIC LUPUS ERYTHEMATOSUS 10/27/2011 HECTOR SAEED APRNNDA S 710.0 SYSTEMIC LUPUS ERYTHEMATOSUS 10/27/2011 CHRISTOPHE RILEY DYLAN S 710.0 SYSTEMIC LUPUS ERYTHEMATOSUS 11/03/2011 HECTOR SAEED APRNNDA S 401.1 BENIGN ESSENTIAL HYPERTENSION 11/03/2011 HECTOR SAEED APRNNDA S 401.1 BENIGN ESSENTIAL HYPERTENSION 11/03/2011 MATT PICHARDO MD 401.1 BENIGN ESSENTIAL HYPERTENSION 11/03/2011 CHRISTOPHE CUSTOMER RETENTION REPRESENTATIVE, DYLAN S 401.1 BENIGN ESSENTIAL HYPERTENSION 11/03/2011 401.1 BENIGN ESSENTIAL HYPERTENSION 11/03/2011 401.1 BENIGN ESSENTIAL HYPERTENSION 11/03/2011 401.1 BENIGN ESSENTIAL HYPERTENSION 11/03/2011 CHRISTOPHE CUSTOMER RETENTION REPRESENTATIVE, DYLAN S 401.1 BENIGN ESSENTIAL HYPERTENSION 11/03/2011 CHRISTOPHE CUSTOMER RETENTION REPRESENTATIVE, DYLAN S 401.1 BENIGN ESSENTIAL HYPERTENSION 11/03/2011 CHRISTOPHE CUSTOMER RETENTION REPRESENTATIVE, DYLAN S 401.1 BENIGN ESSENTIAL HYPERTENSION 11/03/2011 CHRISTOPHE CUSTOMER RETENTION REPRESENTATIVE, DYLAN S 401.1 BENIGN ESSENTIAL HYPERTENSION 11/03/2011 CHRISTOPHE CUSTOMER RETENTION REPRESENTATIVE, DYLAN S 401.1 BENIGN ESSENTIAL HYPERTENSION 11/03/2011 MORE CUSTOMER RETENTION REPRESENTATIVE, JOHANN A 401.1 BENIGN ESSENTIAL HYPERTENSION 11/03/2011 MORE CUSTOMER RETENTION REPRESENTATIVE, JOHANN A 401.1 BENIGN ESSENTIAL HYPERTENSION 11/03/2011 CHRISTOPHE CUSTOMER RETENTION REPRESENTATIVE, DYLAN S 401.1 BENIGN ESSENTIAL HYPERTENSION 11/03/2011 CHRISTOPHE YENN, DYLAN S 401.1 BENIGN ESSENTIAL HYPERTENSION 03/27/2012 CHRISTOPHE RILEY, DYLAN S 535.00 ACUTE GASTRITIS (WITHOUT HEMORRHAGE) 03/27/2012 HECTOR SAEED APRNNDA S 695.4 LUPUS ERYTHEMATOSUS 03/27/2012 CHRISTOPHE RILEY DYLAN S 535.00 ACUTE GASTRITIS (WITHOUT HEMORRHAGE) 03/27/2012 CHRISTOPHE RILEY DYLAN S 695.4 LUPUS ERYTHEMATOSUS 03/27/2012 MATT PICHARDO MD 535.00 ACUTE GASTRITIS (WITHOUT HEMORRHAGE) 03/27/2012 MATT PICHARDO MD 695.4 LUPUS ERYTHEMATOSUS 03/27/2012 CHRISTOPHE RILEY, DYLAN S 535.00 ACUTE GASTRITIS (WITHOUT HEMORRHAGE) 03/27/2012 CHRISTOPHE RILEY, DYLAN S 695.4 LUPUS ERYTHEMATOSUS 03/27/2012 535.00 ACUTE GASTRITIS (WITHOUT HEMORRHAGE) 03/27/2012 695.4 LUPUS ERYTHEMATOSUS 03/27/2012 535.00 ACUTE GASTRITIS (WITHOUT HEMORRHAGE) 03/27/2012 695.4 LUPUS ERYTHEMATOSUS 03/27/2012 535.00 ACUTE GASTRITIS (WITHOUT HEMORRHAGE) 03/27/2012 695.4 LUPUS ERYTHEMATOSUS 03/27/2012 CHRISTOPHE CUSTOMER RETENTION REPRESENTATIVE, DYLAN S 535.00 ACUTE GASTRITIS (WITHOUT HEMORRHAGE) 03/27/2012 CHRISTOPHE CUSTOMER RETENTION REPRESENTATIVE, DYLAN S 695.4 LUPUS ERYTHEMATOSUS 03/27/2012 CHRISTOPHE CUSTOMER RETENTION REPRESENTATIVE, DYLAN S 535.00 ACUTE GASTRITIS (WITHOUT HEMORRHAGE) 03/27/2012 CHRISTOPHE CUSTOMER RETENTION REPRESENTATIVE, DYLAN S 695.4 LUPUS ERYTHEMATOSUS 03/27/2012 CHRISTOPHE CUSTOMER RETENTION REPRESENTATIVE, DYLAN S 535.00 ACUTE GASTRITIS (WITHOUT HEMORRHAGE) 03/27/2012 CHRISTOPHE CUSTOMER RETENTION REPRESENTATIVE, DYLAN S 695.4 LUPUS ERYTHEMATOSUS 03/27/2012 CHRISTOPHE CUSTOMER RETENTION REPRESENTATIVE, DYLAN S 535.00 ACUTE GASTRITIS (WITHOUT HEMORRHAGE) 03/27/2012 CHRISTOPHE CUSTOMER RETENTION REPRESENTATIVE, DYLAN S 695.4 LUPUS ERYTHEMATOSUS 03/27/2012 CHRISTOPHE CUSTOMER RETENTION REPRESENTATIVE, DYLAN S 535.00 ACUTE GASTRITIS (WITHOUT HEMORRHAGE) 03/27/2012 CHRISTOPHE CUSTOMER RETENTION REPRESENTATIVE, DYLAN S 695.4 LUPUS ERYTHEMATOSUS 03/27/2012 MORE CUSTOMER RETENTION REPRESENTATIVE, JOHANN A 535.00 ACUTE GASTRITIS (WITHOUT HEMORRHAGE) 03/27/2012 MORE CUSTOMER RETENTION REPRESENTATIVE, JOHANN A 695.4 LUPUS ERYTHEMATOSUS 03/27/2012 MORE CUSTOMER RETENTION REPRESENTATIVE, JOHANN A 535.00 ACUTE GASTRITIS (WITHOUT HEMORRHAGE) 03/27/2012 MORE CUSTOMER RETENTION REPRESENTATIVE, JOHANN A 695.4 LUPUS ERYTHEMATOSUS 03/27/2012 CHRISTOPHE CUSTOMER RETENTION REPRESENTATIVE, DYLAN S 535.00 ACUTE GASTRITIS (WITHOUT HEMORRHAGE) 03/27/2012 CHRISTOPHE CUSTOMER RETENTION REPRESENTATIVE, DYLAN S 695.4 LUPUS ERYTHEMATOSUS 03/27/2012 CHRISTOPHE YENN, DYLAN S 535.00 ACUTE GASTRITIS (WITHOUT HEMORRHAGE) 03/27/2012 CHRISTOPHE CUSTOMER RETENTION REPRESENTATIVE, DYLAN S 695.4 LUPUS ERYTHEMATOSUS 06/20/2012 CHRISTOPHE RILEY DYLAN S 338.29 CHRONIC PAIN 06/20/2012 HECTOR SAEED APRNNDA S 786.09 DYSPNEA 06/20/2012 HECTOR SAEED APRNNDA S V04.81 FLU DX (3 YRS AND ABOVE, IM) 06/20/2012 CHRISTOPHE YENN DYLAN S 338.29 CHRONIC PAIN 06/20/2012 HECTOR SAEED APRNNDA S 786.09 DYSPNEA 06/20/2012 CHRISTOPHE RILEY DYLAN [...] RILEY DYLAN S 786.09 DYSPNEA 06/20/2012 CHRISTOPHE RILEY, DYLAN S V04.81 FLU DX (3 YRS AND ABOVE, IM) 06/20/2012 CHRISTOPHE RILEY DYLAN S 338.29 CHRONIC PAIN 06/20/2012 CHRISTOPHE RILEY DYLAN S 786.09 DYSPNEA 06/20/2012 CHRISTOPHE RILEY, DYLAN S V04.81 FLU DX (3 YRS AND ABOVE, IM) 06/20/2012 CHRISTOPHE RILEY DYLAN S 338.29 CHRONIC PAIN 06/20/2012 CHRISTOPHE RILEY DYLAN S 786.09 DYSPNEA 06/20/2012 CHRISTOPHE RILEY, DYLAN S V04.81 FLU DX (3 YRS [...] MORE RILEY, JOHANN A 786.09 DYSPNEA 06/20/2012 MOER RILEY, JOHANN A V04.81 FLU DX (3 YRS AND ABOVE, IM) 06/20/2012 MORE RILEY, JOHANN A 338.29 CHRONIC PAIN 06/20/2012 MORE RILEY, JOHANN A 786.09 DYSPNEA 06/20/2012 ROBERTO AGUERO APRNIDI A V04.81 FLU DX (3 YRS AND ABOVE, IM) 06/20/2012 AYESHA SAEED APRNA S 338.29 CHRONIC PAIN 06/20/2012 HECTOR SAEED APRNNDA S 786.09 DYSPNEA 06/20/2012 AYESHA SAEED APRNA S V04.81 FLU DX (3 YRS AND ABOVE, IM) 06/20/2012 HECTOR SAEED APRNNDA S 338.29 CHRONIC PAIN 06/20/2012 HECTOR SAEED APRNNDA S 786.09 DYSPNEA 06/20/2012 AYESHA SAEED APRNA S V04.81 FLU DX (3 YRS AND ABOVE, IM) 10/17/2012 MARINO RAMESH, MATT 782.1 skin: a rash [as Sx] 10/17/2012 [...] skin: a rash [as Sx] 10/17/2012 MORE CUSTOMER RETENTION REPRESENTATIVE, JOHANN A 782.1 skin: a rash [as Sx] 10/17/2012 MORE RILEY JOHANN A 782.1 skin: a rash [as Sx] 10/17/2012 AYESHA SAEED APRNA S 782.1 skin: a rash [as Sx] 10/17/2012 HECTOR SAEED APRNNDA S 782.1 SKIN: A RASH [ SX] 02/13/2013 790.99 abnormal lab 02/13/2013 790.99 abnormal lab 02/13/2013 CHRISTOPHE RILEY, DYLAN S 790.99 abnormal lab 02/13/2013 CHRISTOPHE RILEY, DYLAN S 790.99 abnormal lab 02/13/2013 CHRISTOPHE RILEY, DYLAN S 790.99 abnormal lab 02/13/2013 CHRISTOPHE RILEY, DYLAN S 790.99 abnormal lab 02/13/2013 CHRISTOPHE RILEY, DYLAN S 790.99 abnormal lab 02/13/2013 MORE CUSTOMER RETENTION REPRESENTATIVE, JOHANN A 790.99 abnormal lab 02/13/2013 MORE CUSTOMER RETENTION REPRESENTATIVE, JOHANN A 790.99 abnormal lab 02/13/2013 CHRISTOPHE RILEY, DYLAN S 790.99 abnormal lab 02/13/2013 CHRISTOPHE RILEY, DYLAN S 790.99 ABNORMAL LAB 07/11/2013 CHRISTOPHE RILEY DYLAN S 788.1 DYSURIA 07/11/2013 HECTOR SAEED APRNNDA S V58.69 HIGH RISK MEDICATION 07/11/2013 CHRISTOPHE RILEY DYLAN S 788.1 DYSURIA 07/11/2013 CHRISTOPHE CUSTOMER RETENTION REPRESENTATIVE, DYLAN S V58.69 HIGH RISK MEDICATION 07/11/2013 CHRISTOPHE CUSTOMER RETENTION REPRESENTATIVE, DYLAN S 788.1 DYSURIA 07/11/2013 CHRISTOPHE CUSTOMER RETENTION REPRESENTATIVE, DYLAN S V58.69 HIGH RISK MEDICATION 07/11/2013 MORE CUSTOMER RETENTION REPRESENTATIVE, JOHANN A 788.1 DYSURIA 07/11/2013 MORE CUSTOMER RETENTION REPRESENTATIVE, JOHANN A V58.69 HIGH RISK MEDICATION 07/11/2013 MORE CUSTOMER RETENTION REPRESENTATIVE, JOHANN A 788.1 DYSURIA 07/11/2013 MORE CUSTOMER RETENTION REPRESENTATIVE, JOHANN A V58.69 HIGH RISK MEDICATION 07/11/2013 CHRISTOPHE CUSTOMER RETENTION REPRESENTATIVE, DYLAN S 788.1 DYSURIA 07/11/2013 CHRISTOPHE CUSTOMER RETENTION REPRESENTATIVE, DYLAN S V58.69 HIGH RISK MEDICATION 07/11/2013 CHRISTOPHE CUSTOMER RETENTION REPRESENTATIVE, DYLAN S 788.1 DYSURIA 07/11/2013 CHRISTOPHE CUSTOMER RETENTION REPRESENTATIVE, YDLAN S V58.69 HIGH RISK MEDICATION 07/18/2013 CHRISTOPHE CUSTOMER RETENTION REPRESENTATIVE, DYLAN S 380.10 OTITIS EXTERNA RIGHT 07/18/2013 CHRISTOPHE CUSTOMER RETENTION REPRESENTATIVE, DYLAN S 380.10 OTITIS EXTERNA RIGHT 07/18/2013 CHRISTOPHE CUSTOMER RETENTION REPRESENTATIVE, DYLAN S 380.10 OTITIS EXTERNA RIGHT 07/18/2013 MORE CUSTOMER RETENTION REPRESENTATIVE, JOHANN A 380.10 OTITIS EXTERNA RIGHT 07/18/2013 MORE CUSTOMER RETENTION REPRESENTATIVE, JOHANN A 380.10 OTITIS EXTERNA RIGHT 07/18/2013 CHRISTOPHE YENN, DYLAN S 380.10 OTITIS EXTERNA RIGHT 07/18/2013 CHRISTOPHE CUSTOMER RETENTION REPRESENTATIVE, DYLAN S 380.10 OTITIS EXTERNA RIGHT 10/29/2013 CHRISTOPHE CUSTOMER RETENTION REPRESENTATIVE, DYLAN S V15.82 Nicotine abuse 10/29/2013 CHRISTOPHE YENN, DYLAN S V15.82 Nicotine abuse 10/29/2013 MORE CUSTOMER RETENTION REPRESENTATIVE, JOHANN A V15.82 Nicotine abuse 10/29/2013 MORE CUSTOMER RETENTION REPRESENTATIVE, JOHANN A V15.82 Nicotine abuse 10/29/2013 CHRISTOPHE YENN, DYLAN S V15.82 Nicotine abuse 10/29/2013 CHIRSTOPHE CUSTOMER RETENTION REPRESENTATIVE, DYLAN S V15.82 Nicotine abuse 03/19/2014 CHRISTOPHE CUSTOMER RETENTION REPRESENTATIVE, DYLAN S 599.0 URINARY TRACT INFECTION 03/19/2014 MORE RILEY JOHANN A 599.0 URINARY TRACT INFECTION 03/19/2014 MORE RILEY, JOHANN A 599.0 URINARY TRACT INFECTION 03/19/2014 CHRISTOPHE RILEY, DYLAN S 599.0 URINARY TRACT INFECTION 03/19/2014 CHRISTOPHE CUSTOMER RETENTION REPRESENTATIVE, DYLAN S 599.0 URINARY TRACT INFECTION 04/15/2014 MORE RILEY, JOHANN A V65.42 COUNSELING - SMOKING CESSATION 04/15/2014 MORE RILEY, JOHANN A V72.31 SUPERVISOR PRODUCT INSPECTION EXAM, ROUTINE 04/15/2014 MORE RILEY JOHANN A V73.81 HPV SCREENING 04/15/2014 MORE RILEY, JOHANN A V76.10 BREAST CANCER SCREENING 04/15/2014 MORE RILEY JOHANN A V76.2 CERVICAL CANCER SCREENING (PAP SMEAR) 04/15/2014 MORE RILEY JOHANN A V76.51 COLON CANCER SCREENING 04/15/2014 MORE RILEY, JOHANN A V65.42 COUNSELING - SMOKING CESSATION 04/15/2014 MORE RILEY, JOHANN A V72.31 SUPERVISOR PRODUCT INSPECTION EXAM, ROUTINE 04/15/2014 MORE RILEY JOHANN A V73.81 HPV SCREENING 04/15/2014 MORE RILEY JOHANN A V76.10 BREAST CANCER SCREENING 04/15/2014 MORE RILEY JOHANN A V76.2 CERVICAL CANCER SCREENING (PAP SMEAR) 04/15/2014 MORE YENMarielle JOHANN A V76.51 COLON CANCER SCREENING 04/15/2014 CHRISTOPHE RILEY DYLAN S V65.42 COUNSELING - SMOKING CESSATION 04/15/2014 HECTOR SAEED APRNNDA S V72.31 SUPERVISOR PRODUCT INSPECTION EXAM, ROUTINE 04/15/2014 HECTOR SAEED APRNNDA S V73.81 HPV SCREENING 04/15/2014 CHRISTOPHE RILEY DYLAN S V76.10 BREAST CANCER SCREENING 04/15/2014 HECTOR SAEED APRNNDA S V76.2 CERVICAL CANCER SCREENING (PAP SMEAR) 04/15/2014 DYLAN SAEED APRN V76.51 COLON CANCER SCREENING 04/15/2014 DYLAN SAEED APRN V65.42 COUNSELING - SMOKING CESSATION 04/15/2014 DYLAN SAEED APRN V72.31 SUPERVISOR PRODUCT INSPECTION EXAM, ROUTINE 04/15/2014 YDLAN SAEED APRN V73.81 HPV SCREENING 04/15/2014 DYLAN [...] DO Ot V72.84 11/03/2014 DYLAN SAEED APRN 338.29 PAIN - CHRONIC 11/03/2014 DYLAN SAEED [...] DO Ot V72.84 EXAM PRE-OPERATIVE NOS 09/20/2016 RICO CISNEROS MD Ot E78.5 HYPERLIPIDEMIA, UNSPECIFIED 09/20/2016 RICO CISNEROS [...] E78.5 HYPERLIPIDEMIA, UNSPECIFIED 09/27/2016 RICO CISNEROS MD Ot I10 ESSENTIAL (PRIMARY) HYPERTENSION 09/27/2016 RICO CISNEROS MD Ot R06.00 DYSPNEA, UNSPECIFIED 09/27/2016 RICO CISNEROS MD Ot R06.02 SHORTNESS OF BREATH 09/27/2016 RICO CISNEROS MD Ot R07.9 CHEST PAIN, UNSPECIFIED 10/10/2016 RICO CISNEROS MD Ot E78.5 HYPERLIPIDEMIA, UNSPECIFIED 10/10/2016 RICO CISNEROS MD Ot I10 ESSENTIAL (PRIMARY) HYPERTENSION 10/10/2016 RICO CISNEROS MD Ot R06.00 DYSPNEA, UNSPECIFIED 10/10/2016 RICO CISNEROS [...] F41.9 ANXIETY DISORDER, UNSPECIFIED 11/04/2016 REVA NOVAK DO, Ot J44.9 CHRONIC OBSTRUCTIVE [...] F41.9 ANXIETY DISORDER, UNSPECIFIED 11/09/2016 REVA NOVAK DO Ot J44.9 CHRONIC OBSTRUCTIVE PULMONARY DISEASE, U 11/09/2016 SCARLET REVA Ot M32.9 SYSTEMIC LUPUS ERYTHEMATOSUS, UNSPECIFIE 11/10/2016 REVA NOVAK DO Ot F41.9 ANXIETY DISORDER, UNSPECIFIED 11/10/2016 SCARLET DOREVA M Ot J44.9 CHRONIC OBSTRUCTIVE PULMONARY DISEASE, U 11/10/2016 SCARLETREVA DIETZ DO M Ot M32.9 SYSTEMIC LUPUS ERYTHEMATOSUS, UNSPECIFIE 11/10/2016 REVA NOVAK DO M Ot F41.9 ANXIETY DISORDER, UNSPECIFIED 11/10/2016 SCARLET DOREVA Ot J44.9 CHRONIC OBSTRUCTIVE PULMONARY DISEASE, U 11/10/2016 REVA NOVAK DO M Ot M32.9 SYSTEMIC LUPUS ERYTHEMATOSUS, UNSPECIFIE 11/23/2016 REVA NOVAK DO Ot F41.9 ANXIETY DISORDER, UNSPECIFIED 11/23/2016 REVA NOVAK DO Ot J44.9 CHRONIC OBSTRUCTIVE PULMONARY DISEASE, U 11/23/2016 REVA NOVAK DO Ot M32.9 SYSTEMIC LUPUS ERYTHEMATOSUS, UNSPECIFIE 11/23/2016 REVA NOVAK DO M Ot F41.9 ANXIETY DISORDER, UNSPECIFIED 11/23/2016 SCARLETREVA DIETZ DO Ot J44.9 CHRONIC OBSTRUCTIVE PULMONARY DISEASE, U 11/23/2016 REVA NOVAK DO M Ot M32.9 SYSTEMIC LUPUS ERYTHEMATOSUS, UNSPECIFIE 11/28/2016 Ot 789.01 ABDOMINAL PAIN, RIGHT UPPER QUADRANT 11/28/2016 Ot 593.2 CYST OF KIDNEY, ACQUIRED 11/28/2016 Ot 616.0 CERVICITIS 11/28/2016 Ot 620.2 OVARIAN CYST NEC/NOS 11/28/2016 RICARDO NAM DO Ot V72.84 EXAM PRE-OPERATIVE NOS 11/28/2016 BLAYNE RAMESH, [place] Ellis Ot E78.5 HYPERLIPIDEMIA, UNSPECIFIED 11/28/2016 RICO CISNEROS MD Ot I10 ESSENTIAL (PRIMARY) HYPERTENSION 11/28/2016 RICO CISNEROS MD Ot R06.02 SHORTNESS OF BREATH 11/28/2016 RICO CISNEROS MD Ot R07.9 CHEST PAIN, UNSPECIFIED 11/28/2016 RICO CISNEROS MD Ot E78.5 HYPERLIPIDEMIA, UNSPECIFIED 11/28/2016 RICO CISNEROS MD Ot I10 ESSENTIAL (PRIMARY) HYPERTENSION 11/28/2016 RICO CISNEROS MD Ot R06.00 DYSPNEA, UNSPECIFIED 11/28/2016 RICO CISNEROS MD Ot R06.02 SHORTNESS OF BREATH 11/28/2016 RICO CISNEROS MD Ot R07.9 CHEST PAIN, UNSPECIFIED 11/28/2016 REVA NOVAK DO Ot F41.9 ANXIETY DISORDER, UNSPECIFIED 11/28/2016 REVA NOVAK DO Ot J44.9 CHRONIC OBSTRUCTIVE PULMONARY DISEASE, U 11/28/2016 REVA NOVAK DO Ot M32.9 SYSTEMIC LUPUS ERYTHEMATOSUS, UNSPECIFIE 11/28/2016 REVA NOVAK DO Ot F41.9 ANXIETY DISORDER, UNSPECIFIED 11/28/2016 REVA NOVAK DO Ot J44.9 CHRONIC OBSTRUCTIVE PULMONARY DISEASE, U 11/28/2016 REVA NOVAK DO Ot M32.9 SYSTEMIC LUPUS ERYTHEMATOSUS, UNSPECIFIE 11/28/2016 Ot 789.01 ABDOMINAL PAIN, RIGHT UPPER QUADRANT 11/28/2016 Ot 593.2 CYST OF KIDNEY, ACQUIRED 11/28/2016 Ot 616.0 CERVICITIS 11/28/2016 Ot 620.2 OVARIAN CYST NEC/NOS 11/28/2016 RICARDO NAM DO Ot V72.84 EXAM PRE-OPERATIVE NOS 11/28/2016 RICO CISNEROS MD Ot E78.5 HYPERLIPIDEMIA, UNSPECIFIED 11/28/2016 RICO CISNEROS MD Ot I10 ESSENTIAL (PRIMARY) HYPERTENSION 11/28/2016 RICO CISNEROS MD Ot R06.02 SHORTNESS OF BREATH 11/28/2016 RICO CISNEROS MD Ot R07.9 CHEST PAIN, UNSPECIFIED 11/28/2016 RICO CISNEROS MD Ot E78.5 HYPERLIPIDEMIA, UNSPECIFIED 11/28/2016 RICO CISNEROS MD Ot I10 ESSENTIAL (PRIMARY) HYPERTENSION 11/28/2016 RICO CISNEROS MD Ot R06.00 DYSPNEA, UNSPECIFIED 11/28/2016 RICO CISNEROS MD Ot R06.02 SHORTNESS OF BREATH 11/28/2016 RICO CISNEROS MD Ot R07.9 CHEST PAIN, UNSPECIFIED 11/28/2016 REVA NOVAK DO Ot F41.9 ANXIETY DISORDER, UNSPECIFIED 11/28/2016 REVA NOVAK DO Ot J44.9 CHRONIC OBSTRUCTIVE PULMONARY DISEASE, U 11/28/2016 REVA NOVAK DO Ot M32.9 SYSTEMIC LUPUS ERYTHEMATOSUS, UNSPECIFIE 11/28/2016 REVA NOVAK DO Ot F41.9 ANXIETY DISORDER, UNSPECIFIED 11/28/2016 REVA NOVAK DO Ot J44.9 CHRONIC OBSTRUCTIVE PULMONARY DISEASE, U 11/28/2016 REVA NOVAK DO Ot M32.9 SYSTEMIC LUPUS ERYTHEMATOSUS, UNSPECIFIE 11/28/2016 Ot 789.01 ABDOMINAL PAIN, RIGHT UPPER QUADRANT 11/28/2016 Ot 593.2 CYST OF KIDNEY, ACQUIRED 11/28/2016 Ot 616.0 CERVICITIS 11/28/2016 Ot 620.2 OVARIAN CYST NEC/NOS 11/28/2016 CYRIL SHEPHERD RICARDO Chapis Ot V72.84 EXAM PRE-OPERATIVE NOS 11/28/2016 RICO CISNEROS MD Ot E78.5 HYPERLIPIDEMIA, UNSPECIFIED 11/28/2016 RICO CISNEROS MD Ot I10 ESSENTIAL (PRIMARY) HYPERTENSION 11/28/2016 RICO CISNEROS MD Ot R06.02 SHORTNESS OF BREATH 11/28/2016 RICO CISNEROS MD Ot R07.9 CHEST PAIN, UNSPECIFIED 11/28/2016 RICO CISNEROS MD Ot E78.5 HYPERLIPIDEMIA, UNSPECIFIED 11/28/2016 RICO CISNEROS MD Ot I10 ESSENTIAL (PRIMARY) HYPERTENSION 11/28/2016 RICO CISNEROS MD Ot R06.00 DYSPNEA, UNSPECIFIED 11/28/2016 RICO CISNEROS MD Ot R06.02 SHORTNESS OF BREATH 11/28/2016 RICO CISNEROS MD Ot R07.9 CHEST PAIN, UNSPECIFIED 11/28/2016 REVA NOVAK DO Ot F41.9 ANXIETY DISORDER, UNSPECIFIED 11/28/2016 REVA NOVAK DO Ot J44.9 CHRONIC OBSTRUCTIVE PULMONARY DISEASE, U 11/28/2016 REVA NOVAK DO Ot M32.9 SYSTEMIC LUPUS ERYTHEMATOSUS, UNSPECIFIE 11/28/2016 REVA NOVAK DO Ot F41.9 ANXIETY DISORDER, UNSPECIFIED 11/28/2016 REVA NOVAK DO Ot J44.9 CHRONIC OBSTRUCTIVE PULMONARY DISEASE, U 11/28/2016 REVA NOVAK DO Ot M32.9 SYSTEMIC LUPUS ERYTHEMATOSUS, UNSPECIFIE 11/29/2016 REVA NOVAK DO Ot F41.9 ANXIETY DISORDER, UNSPECIFIED 11/29/2016 REVA NOVAK DO Ot J44.9 CHRONIC OBSTRUCTIVE PULMONARY DISEASE, U 11/29/2016 REVA NOVAK DO Ot M32.9 SYSTEMIC LUPUS ERYTHEMATOSUS, UNSPECIFIE 01/31/2017 Ot 789.01 ABDOMINAL PAIN, RIGHT UPPER QUADRANT 01/31/2017 Ot 593.2 CYST OF KIDNEY, ACQUIRED 01/31/2017 Ot 616.0 CERVICITIS 01/31/2017 Ot 620.2 OVARIAN CYST NEC/NOS 01/31/2017 RICARDO NAM DO Ot V72.84 EXAM PRE-OPERATIVE NOS 01/31/2017 RICO CISNEROS MD Ot E78.5 HYPERLIPIDEMIA, UNSPECIFIED 01/31/2017 RICO CISNEROS MD Ot I10 ESSENTIAL (PRIMARY) HYPERTENSION 01/31/2017 RICO CISNEROS MD Ot R06.02 SHORTNESS OF BREATH 01/31/2017 RICO CISNEROS MD Ot R07.9 CHEST PAIN, UNSPECIFIED 01/31/2017 RIOC CISNEROS MD Ot E78.5 HYPERLIPIDEMIA, UNSPECIFIED 01/31/2017 RICO CISNEROS MD Ot I10 ESSENTIAL (PRIMARY) HYPERTENSION 01/31/2017 RICO CISNEROS MD Ot R06.00 DYSPNEA, UNSPECIFIED 01/31/2017 RICO CISNEROS MD Ot R06.02 SHORTNESS OF BREATH 01/31/2017 RICO CISNEROS MD Ot R07.9 CHEST PAIN, UNSPECIFIED 01/31/2017 REVA NOVAK DO Ot F41.9 ANXIETY DISORDER, UNSPECIFIED 01/31/2017 RVEA NOVAK DO Ot J44.9 CHRONIC OBSTRUCTIVE PULMONARY DISEASE, U 01/31/2017 REVA NOVAK DO Ot M32.9 SYSTEMIC LUPUS ERYTHEMATOSUS, UNSPECIFIE 01/31/2017 REVA NOVAK DO Ot F41.9 ANXIETY DISORDER, UNSPECIFIED 01/31/2017 REVA NOVAK DO Ot J44.9 CHRONIC OBSTRUCTIVE PULMONARY DISEASE, U 01/31/2017 REVA NOVAK DO Ot M32.9 SYSTEMIC LUPUS ERYTHEMATOSUS, UNSPECIFIE 02/03/2017 Ot 789.01 ABDOMINAL PAIN, RIGHT UPPER QUADRANT 02/03/2017 Ot 593.2 CYST OF KIDNEY, ACQUIRED 02/03/2017 Ot 616.0 CERVICITIS 02/03/2017 Ot 620.2 OVARIAN CYST NEC/NOS 02/03/2017 RICARDO NAM DO Ot V72.84 EXAM PRE-OPERATIVE NOS 02/03/2017 RICO CISNEROS MD Ot E78.5 HYPERLIPIDEMIA, UNSPECIFIED 02/03/2017 RICO CISNEROS MD Ot I10 ESSENTIAL (PRIMARY) HYPERTENSION 02/03/2017 RICO CISNEROS MD Ot R06.02 SHORTNESS OF BREATH 02/03/2017 RICO CISNEROS MD Ot R07.9 CHEST PAIN, UNSPECIFIED 02/03/2017 RICO CISNEROS MD Ot E78.5 HYPERLIPIDEMIA, UNSPECIFIED 02/03/2017 RICO CISNEROS MD Ot I10 ESSENTIAL (PRIMARY) HYPERTENSION 02/03/2017 RICO CISNEROS MD Ot R06.00 DYSPNEA, UNSPECIFIED 02/03/2017 RICO CISNEROS MD Ot R06.02 SHORTNESS OF BREATH 02/03/2017 RICO CISNEROS MD Ot R07.9 CHEST PAIN, UNSPECIFIED 02/03/2017 REVA NOVAK DO Ot F41.9 ANXIETY DISORDER, UNSPECIFIED 02/03/2017 REVA NOVAK DO Ot J44.9 CHRONIC OBSTRUCTIVE PULMONARY DISEASE, U 02/03/2017 REVA NOVAK DO Ot M32.9 SYSTEMIC LUPUS ERYTHEMATOSUS, UNSPECIFIE 02/03/2017 REVA NOVAK DO Ot F41.9 ANXIETY DISORDER, UNSPECIFIED 02/03/2017 REVA NOVAK DO Ot J44.9 CHRONIC OBSTRUCTIVE PULMONARY DISEASE, U 02/03/2017 REVA NOVAK DO Ot M32.9 SYSTEMIC LUPUS ERYTHEMATOSUS, UNSPECIFIE 02/04/2017 EMA MCDOWELL APRN Ot G47.33 OBSTRUCTIVE SLEEP APNEA (ADULT) (PEDIATR 02/10/2017 EMA MCDOWELL APRN Ot G47.33 OBSTRUCTIVE SLEEP APNEA (ADULT) (PEDIATR 12/19/2017 RICARDO NAM DO Ot V72.84 EXAM PRE-OPERATIVE NOS 12/19/2017 RICO CISNEROS MD Ot E78.5 HYPERLIPIDEMIA, UNSPECIFIED 12/19/2017 BLAYNE RAMESH, RICO Ellis Ot I10 ESSENTIAL (PRIMARY) HYPERTENSION 12/19/2017 BLAYNE RAMESH, RICO Ellis Ot R06.02 SHORTNESS OF BREATH 12/19/2017 RICO CISNEROS MD Ot R07.9 CHEST PAIN, UNSPECIFIED 12/19/2017 RICO CISNEROS MD Ot E78.5 HYPERLIPIDEMIA, UNSPECIFIED 12/19/2017 RICO CISNEROS MD Ot I10 ESSENTIAL (PRIMARY) HYPERTENSION 12/19/2017 BLAYNE RAMESH, RICO Ellis Ot R06.00 DYSPNEA, UNSPECIFIED 12/19/2017 RICO CISNEROS MD Ot R06.02 SHORTNESS OF BREATH 12/19/2017 RICO CISNEROS MD Ot R07.9 CHEST PAIN, UNSPECIFIED 12/19/2017 REVA NOVAK DO Ot F41.9 ANXIETY DISORDER, UNSPECIFIED 12/19/2017 REVA NOVAK DO Ot J44.9 CHRONIC OBSTRUCTIVE PULMONARY DISEASE, U 12/19/2017 REVA NOVAK DO Ot M32.9 SYSTEMIC LUPUS ERYTHEMATOSUS, UNSPECIFIE 12/19/2017 REVA NOVAK DO Ot F41.9 ANXIETY DISORDER, UNSPECIFIED 12/19/2017 REVA NOVAK DO Ot J44.9 CHRONIC OBSTRUCTIVE PULMONARY DISEASE, U 12/19/2017 REVA NOVAK DO Ot M32.9 SYSTEMIC LUPUS ERYTHEMATOSUS, UNSPECIFIE 12/20/2017 DEANA RAMESH, KAUR Ellsi Ot J44.9 CHRONIC OBSTRUCTIVE PULMONARY DISEASE, U 12/20/2017 DEANA RAMESH, KAUR Ellis Ot M79.89 OTHER SPECIFIED SOFT TISSUE DISORDERS 12/25/2017 DEANA RAMESH, KAUR Ellis Ot J44.9 CHRONIC OBSTRUCTIVE PULMONARY DISEASE, U 12/25/2017 DEANA RAMESH, KAUR Ellis Ot M79.89 OTHER SPECIFIED SOFT TISSUE DISORDERS 12/26/2017 EMA MCDOWELL APRN Ot F17.200 NICOTINE DEPENDENCE, UNSPECIFIED, UNCOMP 12/26/2017 EMA MCDOWELL APRN Ot J44.9 CHRONIC OBSTRUCTIVE PULMONARY DISEASE, U 12/26/2017 EMA MCDOWELL CUSTOMER RETENTION REPRESENTATIVE Ot R91.8 OTHER NONSPECIFIC ABNORMAL FINDING OF МАРИНА 12/26/2017 EMA MCDOWELL APRN Ot F17.200 NICOTINE DEPENDENCE, UNSPECIFIED, UNCOMP 12/26/2017 EMA MCDOWELL APRN Ot J44.9 CHRONIC OBSTRUCTIVE PULMONARY DISEASE, U 12/26/2017 EMA MCDOWELL APRN Ot R91.8 OTHER NONSPECIFIC ABNORMAL FINDING OF МАРИНА Procedures Code [place] [address] URINE DRUG SCREEN (IN-HOUSE ) 07/24/2012 02812 ROUTINE VENIPUNCTURE 10/17/2012 43851 UA W/MICROSCOPY 10/17/2012 31527 HEPATITIS PROFILE 10/17/2012 [id number] COMPLETE BLOOD COUNT NO DIFF (CBC Result) 10/17/2012 56806 DIFFERENTIAL WBC COUNT (CBC DIFF RESULT) 10/17/2012 56872 HIV ANTIBODIES (RML) 10/17/2012 30561 CULTURE NASAL 10/19/2012 57350 SM ANTIBODY (ANTI ARCHER) 10/19/2012 98696 CBC W/MANUAL DIF (order) 10/22/2012 00518 CARDIOLIPIN ANTIBODY 10/22/2012 LUPUS LUPUS ANTICOAGULANT ANALYZER 10/22/2012 13801 BIOPSY SKIN LESION (SINGLE) 10/26/2012 72825 ROUTINE VENIPUNCTURE 12/13/2012 82530 CBC 12/14/2012 88065 ROUTINE VENIPUNCTURE 02/01/2013 [id number] IMMATURE PLATELET FRACTION (RESULT ONLY) 02/04/2013 48259 CBC 02/04/2013 37595 DIFFERENTIAL WBC COUNT (CBC DIFF RESULT) 02/04/2013 26017 PERIPHERIAL BLOOD SMEAR 02/04/2013 13277 RETICULOCYTE COUNT 02/04/2013 0165943 HEMATOLOGY OTHER REPORT 02/04/2013 38038 ROUTINE VENIPUNCTURE 03/11/2013 98169 ASSAY OF ERYTHROPOIETIN 03/11/2013 55308 ROUTINE VENIPUNCTURE 05/09/2013 38098 CBC 05/09/2013 44432 CMP 05/09/2013 1963620 GFR CALC (RESULT ONLY) 05/09/2013 49084 URINE DRUG SCREEN (IN-HOUSE ) 07/11/2013 62907 UA W/ CULTURE IF INDICATED 07/11/2013 76550 CULTURE URINE 07/14/2013 G0008 FLU ADMINISTRATION ( MEDICARE ONLY) 07/18/2013 50840 ROUTINE VENIPUNCTURE 10/29/2013 54679 URINE DRUG SCREEN (IN-HOUSE ) 10/29/2013 9253557 GFR CALC (RESULT ONLY) 10/29/2013 25601 CMP 10/29/2013 47506 CBC 10/29/2013 52289 UA W/ CULTURE IF INDICATED 03/19/2014 18125 CULTURE URINE 03/20/2014 30005 [employer] 03/21/2014 Q0091 PAP SMEAR OBTAIN SMEAR 04/15/2014 31404 MAMMOGRAM, SCREENING 04/17/2014 86517 PAP SMEAR 04/17/2014 [facility] Nam 05/02/2014 58292 HEMOCCULT 05/02/2014 07491 HEMOCCULT 05/02/2014 18386 ROUTINE VENIPUNCTURE 06/16/2014 47570 CBC 06/16/2014 4768852 GFR CALC (RESULT ONLY) 06/16/2014 50208 CMP 06/16/2014 63040 LIPID PANEL 06/16/2014 81099 [employer] 11/03/2014 Results Test Result Range Antinuclear Ab Reflex [place] - 07/18/16 14:34 CLEOPATRA Direct Negative Negative See below: Comment Rheumatoid Arthritis Factor - 07/18/16 14:34 RA Latex Turbid. <10.0 IU/mL 0.0-13.9 Sedimentation Rate-Westergren - 07/18/16 14:34 Sedimentation Rate-[place]estergren 7 mm/hr 0-40 C-Reactive Protein, Quant - 07/18/16 14:34 C-Reactive Protein, Quant 14.9 mg/L 0.0-4.9 Arterial blood gas measurement - 11/03/16 11:31 Blood pCO2 45 mm[Hg] 35-45 Blood pO2 56 mm[Hg] 79-93 Arterial blood bicarbonate measurement (moles/volume) 26 mmol/L 23-27 Arterial blood base excess by calculation 1.7 mmol/L -2.5 -2.5 Arterial blood oxygen saturation measurement 92 % 94-100 * Inhaled oxygen flow rate N/A NRG Arterial blood pH measurement with patient temperature correction 7.39 7.37-7.43 Arterial blood carbon dioxide, total measurement (moles/volume) 27.7 mmol/L 21.0-31.0 Body site LEFT RADIAL NRG Assessment of wrist artery patency prior to arterial puncture POSITIVE NRG Setting of ventilation mode NO NRG Measurement of body temperature 97.7 NRG Arterial blood gas measurement - 12/19/17 11:08 Blood pCO2 41 mm[Hg] 35-45 Blood pO2 76 mm[Hg] 79-93 Arterial blood bicarbonate measurement (moles/volume) 24 mmol/L 23-27 Arterial blood base excess by calculation -0.6 mmol/L - 2.5-2.5 Arterial blood oxygen saturation measurement 94 % 94-100 * Inhaled oxygen flow rate ROOM AIR NRG Arterial blood pH measurement with patient temperature correction 7.38 7.37-7.43 Arterial blood carbon dioxide, total measurement (moles/volume) 25.0 mmol/L 21.0-31.0 Body site LT RADIAL NRG Assessment of wrist artery patency prior to arterial puncture YES- POS NRG Setting of ventilation mode NO NRG Measurement of body temperature 98.8 NRG Encounters ACCT No. Visit Date/Time Discharge Status Pt. Type Provider Facility Loc./Unit Complaint [id number] 11/03/2014 15:57:00 11/03/2014 23:59:59 CLS Outpatient DYLAN SAEED APRN [id number] 06/14/2014 00:00:00 06/14/2014 23:59:59 CLS Outpatient DYLAN SAEED APRN [id number] 05/02/2014 16:11:00 05/02/2014 23:59:59 CLS Outpatient JOHANN AGUERO APRN [id number] 04/15/2014 10:28:00 04/15/2014 23:59:59 CLS Outpatient JOHANN AGUERO APRN [id number] 03/19/2014 11:43:00 03/19/2014 23:59:59 CLS Outpatient DYLAN SAEED APRN [id number] 10/29/2013 11:15:00 10/29/2013 23:59:59 CLS Outpatient DYLAN SAEED APRN [id number] 07/18/2013 10:57:00 07/18/2013 23:59:59 CLS Outpatient DYLAN SAEED APRN [id number] 07/11/2013 12:31:00 07/11/2013 23:59:59 CLS Outpatient DYLAN SAEED APRN S [id number] 05/09/2013 12:00:00 05/09/2013 23:59:59 CLS Outpatient DYLAN SAEED APRN [id number] 10/25/2012 18:07:00 10/25/2012 23:59:59 CLS Outpatient DYLAN SAEED APRN [id number] 10/17/2012 11:30:00 10/17/2012 23:59:59 CLS Outpatient MATT PICHARDO MD [id number] 07/24/2012 12:39:00 07/24/2012 23:59:59 CLS Outpatient DYLAN SAEED APRN [id number] 06/20/2012 12:54:00 06/20/2012 23:59:59 CLS Outpatient CHRISTOPHE YENNDYLAN [id number] 03/11/2013 11:37:00 Document Registration [id number] 02/01/2013 10:37:00 Document Registration [id number] 12/13/2012 17:29:00 Document Registration [id number] 12/25/2017 12:01:00 12/25/2017 23:59:59 CLS Outpatient EMA MCDOWELL APRN [facility] RAD COPD,SOB [id number] 12/19/2017 09:56:00 12/19/2017 23:59:59 CLS Outpatient KAUR LEBLANC MD [facility] RAD J44.9 [id number] 02/03/2017 20:59:00 02/04/2017 06:15:00 DIS Outpatient EMA MCDOWELL APRN [facility] SLEEP G47.33 RASHEED [id number] 11/28/2016 19:45:00 11/29/2016 06:00:00 DIS Outpatient REVA NOVAK DO [facility] SLEEP COPD,LUPUS,ANXIETY [id number] 11/09/2016 15:22:00 11/09/2016 23:59:59 CLS Outpatient REVA NOVAK DO [facility] RT COPD,LUPUS,ANXIETY [id number] 11/03/2016 10:25:00 11/03/2016 23:59:59 CLS Outpatient REVA NOVAK DO [facility] RAD COPD,LUPUS,ANXIETY [id number] 09/21/2016 08:26:00 09/21/2016 23:59:59 CLS Outpatient RICO CISNEROS MD [facility] CARD CHEST PAIN,SOB [id number] 07/26/2016 12:42:00 07/26/2016 23:59:59 CLS Outpatient RICO CISNEROS MD [facility] CARD CHEST PAIN,SOB [id number] 09/11/2015 09:55:00 09/25/2015 11:28:00 DIS Outpatient DYLAN SAEED [facility] REHAB SCIATICA [id number] 07/08/2014 13:43:00 07/08/2014 17:05:00 DIS Outpatient RICARDO NAM DO [facility] SDC BLOOD IN STOOLS [id number] 07/03/2014 07:53:00 07/03/2014 23:59:59 CLS Outpatient RICARDO NAM DO [facility] PREOP BLOOD IN STOOLS [id number] 01/02/2018 12:00:00 PEN Preadmit EAM MCDOWELL APRN [facility] RAD R91.8 LUNG MASS [id number] 11/09/2011 09:05:00 Document Registration [id number] 10/26/2011 13:22:00 Document Registration [id number] 07/19/2016 13:05:00 Document Registration
--- NOTE | 2018-01-03 07:35 | Progress Note-Pre Operative ---
Pre-Operative Progress Note H&P Reviewed The H&P was reviewed, patient examined and no changes noted. Time Seen by Provider: 07:35 Date H&P Reviewed: January 03, 2018 Time H&P Reviewed: 07:35 Pre-Operative Diagnosis: lung mass REVA NOVAK DO January 03, 2018 07:35
[2018-01-03 07:51] VITALS: BP 119/84
--- NOTE | 2018-01-03 08:59 | Anesthesia-General Post-Op ---
General Patient Condition Mental Status/LOC: Same as Preop Cardiovascular: Satisfactory Nausea/Vomiting: Absent Respiratory: Satisfactory Pain: Controlled Complications: Absent Post Op Complications Complications None Follow Up Care/Instructions Patient Instructions None needed. Anesthesia/Patient Condition Patient Condition Patient is doing well, no complaints, stable vital signs, no apparent adverse anesthesia problems. No complications reported per nursing. SONAM RUBY CRNA January 03, 2018 08:59
[2018-01-03 09:15] VITALS: BP 116/56
--- NOTE | 2018-01-03 09:22 | Diagnostic Imaging Report ---
INDICATION: POST BRONCHOSCOPY WITH EBUS. TECHNIQUE: Single frontal view of the chest. COMPARISON: 12/19/2017 FINDINGS: Redemonstrated is a focal mass at the medial right upper lung. Lung volumes are normal. No pleural effusion or pneumothorax is seen. There are increased interstitial opacities in the right lung and in the left lung base. The cardiomediastinal silhouette is normal in size. IMPRESSION: 1. New interstitial opacities in the right midlung and in the left lung base, may represent atelectasis or mild interstitial edema. 2. Stable right upper lobe pulmonary mass. No pneumothorax or pleural effusion is seen. Dictated by: Dictated on workstation # [id number]
[2018-01-03 09:45] VITALS: BP 120/77
[2018-01-03 09:54] VITALS: BP 120/77
--- NOTE | 2018-01-03 12:36 | Diagnostic Imaging Report ---
EXAMINATION: Fluoroscopy. INDICATION: Bronchoscopy, lung mass. TECHNIQUE: Fluoroscopic assistance was provided for Dr. Orosco during his bronchoscopy procedure. 13.5 seconds of fluoroscopy time was used. FINDINGS: A single spot film of the right thorax was received. There is a bronchoscopic device in place. IMPRESSION: Fluoroscopic assistance was provided for Dr. Orosco during his bronchoscopy procedure. Dictated by: Dictated on workstation # [id number]
--- NOTE | 2018-01-16 13:06 | Pulmonary Procedures ---
Pulmonary Procedures Date of Procedure Date of Service: January 03, 2018 Bronch Bronchoscopy with bronchoalveolar lavage (BAL) with EBUS with bx of station 7 and 4R lymph nodes Preop DX: lung mass mediastinal lymphadenopathy PostOP DX: same Complications: None Pt was sedated per anesthesia. Bronchoscopy was advanced through the ED tube and an anatomical undertaken down to the segmental bronchi bilaterally. No endobronchial lesions noted. EBUS was then advanced through ET tube and the mediastinum was US. Station 7 and 4R lymph nodes were sampled via needle bx under US guidance. Pt tolerated procedure well. No complications noted. REVA NOVAK DO January 16, 2018 13:06
== END | disposition home or self-care (01) ==
LOC: ENDO 07:06
PROVIDERS: ATTEND Internal Medicine Critical Care Medicine
DX: J44.9 Chronic obstructive pulmonary disease, unspecified (principal); R09.02 Hypoxemia; F17.210 Nicotine dependence, cigarettes, uncomplicated; R63.4 Abnormal weight loss; R91.8 Other nonspecific abnormal finding of lung field; M32.9 Systemic lupus erythematosus, unspecified; I10 Essential (primary) hypertension; G62.9 Polyneuropathy, unspecified; K21.9 Gastro-esophageal reflux disease without esophagitis; Z79.899 Other long term (current) drug therapy
CPT/HCPCS: 71045; 87070; 87101; 87205; 88112; 88305; 88342; 94640

== ENCOUNTER 2018-01-19 08:00 | Outpatient (CLI) | payer MEDICARE, OTHER ==
[~2018-01-19] VITALS: Ht 157.5 cm; Wt 82.1 kg
[2018-01-19] VITALS (25 sets, daily range): BP systolic 85–119; BP diastolic 47–80
[~2018-01-19 08:00] MED LIST changes: -ALBU2.5V4 IH; -BUDE10.2 IH; -CETI10TA20 PO; -DEXAMETHASONE 10 MG/ML (DECADRON) 1 ML VIAL ONE; -DOXY100C PO; -FAMOTIDINE 20MG/2ML IV (PEPCID) IV ONE; -GABA600T2 PO; -HYDR200T78 PO; -HYDR25TA4 PO; -LACTATED RINGERS 1,000 ML IV ONE; -LACTATED RINGERS 1,000 ML IV STA; -LIDOCAINE 4% INJ (XYLOCAINE) 5ML AMP INJ ONE; -LIDOCAINE JELLY 2% (XYLOCAINE) 30 ML TUBE TOP ONE; -LIDOCAINE PF 1% 2 ML AMP INJ ONE; -LIDOCAINE PF 2% 5 ML (XYLOCAINE) VIAL ONE; -MIDAZOLAM 2 MG/2 ML (VERSED) VIAL ONE; -MONT10TA21 PO; -ONDANSETRON 4 MG/2 ML (SDV) Z0FRAN IV ONE; -PROPOFOL INJECTION 100 ML IV ONE; -RANI75TA21 PO; -ROCURONIUM 10 MG/ML 5 ML SYRINGE IV ONE; -TIOT18CA2 IH; -TRAZ150T72 PO; -fentaNYL INJECTION 100 MCG/2 ML AMP ONE; -proPOfol 200 MG/20 ML (DIPRIVAN) VIAL IV ONE
[2018-01-19] MEDS ORDERED: LIDOCAINE 1% INJ 20 ML 20 ML VIAL ONE (08:49)
[2018-01-19] MEDS ORDERED: MIDAZOLAM 2 MG/2 ML (VERSED) VIAL ONE (08:49)
[2018-01-19] MEDS ORDERED: fentaNYL INJECTION 100 MCG/2 ML AMP ONE (08:49)
[2018-01-19] MEDS ORDERED: NS IV 1000 ML 1,000 ML IV STA (08:50)
[2018-01-19] MEDS ORDERED: MIDAZOLAM 2 MG/2 ML (VERSED) VIAL IVP PRN (09:00)
[2018-01-19] MEDS ORDERED: fentaNYL INJECTION 100 MCG/2 ML AMP IVP PRN (09:00)
[2018-01-19] MEDS ORDERED: LIDOCAINE 1% INJ 20 ML 20 ML VIAL IJ ONE (09:00)
[2018-01-19 09:02] LABS: HEMOGLOBIN 13.7 G/DL (11.5-16.0); MEAN PLATELET VOLUME 10.7 FL (7.4-10.4); RED BLOOD COUNT 4.51 10^6/uL (4.35-5.85); RED CELL DISTRIBUTION WIDTH 13.1 % (10.0-14.5)
[2018-01-19] MEDS ORDERED: NS IV 1000 ML 1,000 ML ONE (09:03)
[2018-01-19 09:15] LABS: INR 1.1 (0.8-1.4); PROTHROMBIN TIME PATIENT 13.9 SEC (12.2-14.7)
[2018-01-19] MEDS ORDERED: HYDROcodone/APAP 5 MG/325 MG (LORTAB) TAB PO PRN (10:30)
--- NOTE | 2018-01-19 10:55 | Pre-Op Note & Conscious Sedat ---
Pre-Operative Progress Note H&P Reviewed The H&P was reviewed, patient examined and no changes noted. Date H&P Reviewed: January 19, 2018 Time H&P Reviewed: 08:00 Pre-Op Diagnosis: Lung mass Conscious Sedation Pre-Proced Time Reviewed: 08:00 ASA Class: 2 Airway Mallampati Classification: ([place] appropriate class) I. II. III, IV Lungs Heart ASA score ASA 1: a normal healthy patient ASA 2: a patient with a mild systemic disease (mid diabetes, controlled hypertension, obesity ASA 3: a patient with a severe systemic disease that limits activity (angina , COPD, prior Myocardial infarction) ASA 4: a patient with an incapacitating disease that is a constant threat to life (CHF, renal failure) ASA 5: a moribund patient not expected to survive 24 hrs. (ruptured aneurysm) ASA 6: a declared brain patient whose organs are being harvested. For emergent operations, add the letter E after the classification Grade 2 Sedation Plan: Analgesia, Amnesia, Plan communicated to team members, Discussed options with patient/fam, Discussed risks with patient/fam Note The patient is an appropriate candidate to undergo the planned procedure, sedation, and anesthesia. The patient immediately re-assessed prior to indication. JAYY POOLE MD January 19, 2018 10:55
--- NOTE | 2018-01-19 11:36 | Diagnostic Imaging Report ---
INDICATION: Right lung mass. Patient presents for CT-guided biopsy. PROCEDURE: Patient was brought to the CT suite, placed on the table in the right side down decubitus position. Axial imaging through the chest was performed to evaluate appropriate entry site. Right posterior thorax was then prepped and draped in usual sterile fashion. The procedure was performed utilizing conscious sedation with radiology nursing and constant monitoring. Total sedation time of procedure was approximately 11 minutes. Patient was administered a total of 1.5 mg of Versed intravenously. A 20-gauge coaxial needle was advanced and placed with its tip along the margin of the mass in the right upper lobe. A total of four core biopsies were obtained. A blood patch was administered during removal of the needle. Hemostasis was obtained using manual compression. Followup imaging is without complicating feature. No pneumothorax is identified. Patient will obtain a chest x-ray in one hour to evaluate for complications. IMPRESSION: Successful CT-guided core biopsy of the right upper lobe mass, utilizing conscious sedation. Pathology results are currently pending. Dictated by: Dictated on workstation # [id number]
--- NOTE | 2018-01-19 12:33 | Diagnostic Imaging Report ---
INDICATION: Right lung biopsy. Time of exam 11:21 AM Expiratory portable radiograph of the chest was performed. No pneumothorax is seen status post right lung biopsy. Right paratracheal mass is again noted. There is no effusion. IMPRESSION: No evidence of pneumothorax, status post right lung biopsy. Dictated by: Dictated on workstation # [id number]
[2018-01-19] MEDS ORDERED: BUDE10.2 IH (13:41)
[2018-01-19] MEDS ORDERED: ALBU2.5V4 IH (13:41)
[2018-01-19] MEDS ORDERED: CETI10TA20 PO (13:41)
[2018-01-19] MEDS ORDERED: HYDR200T78 PO (13:51)
[2018-01-19] MEDS ORDERED: TIOT18CA2 IH (13:51)
[2018-01-19] MEDS ORDERED: GABA600T2 PO (13:51)
[2018-01-19] MEDS ORDERED: TRAM50TA2 PO (13:51)
[2018-01-19] MEDS ORDERED: DOXY100C PO (13:51)
[2018-01-19] MEDS ORDERED: TRAZ150T72 PO (13:51)
[2018-01-19] MEDS ORDERED: HYDR25TA4 PO (13:51)
[2018-01-19] MEDS ORDERED: MONT10TA21 PO (13:51)
[2018-01-19] MEDS ORDERED: RANI75TA21 PO (13:51)
== END 2018-01-19 14:45 | disposition home or self-care (01) ==
LOC: RAD 08:00
PROVIDERS: ATTEND Internal Medicine Critical Care Medicine
DX: C34.91 Malignant neoplasm of unspecified part of right bronchus or lung (principal)
CPT/HCPCS: 36415; 71045; 77012; 85027; 85610; 85730; 88305; 88344